=== PATIENT | female | born 1955 | race Caucasian/White ===

== ENCOUNTER 2016-08-16 17:57 | Inpatient (IN) ==
[2016-08-16] MEDS ORDERED: 0.9 % Sodium Chloride 1,000 ML IVC ONE ×2 (18:14→21:02)
--- NOTE | 2016-08-16 18:22 | Emergency Department Note ---
Disposition Clinical Impression: Severe sepsis, Bacteremia, ESRD (end stage renal disease) on dialysis, Pleural effusion, left Disposition: Admitted As Inpatient Condition: Fair Time of Disposition: 21:29 General Adult HPI - General Chief complaint: ED Recheck/Abnormal Lab/Rx Stated complaint: "Abnormal labs/n/v" Time Seen by Provider: 08/16/16 18:13 Source: EMS Limitations: language barrier, physical limitation Nursing Notes Reviewed: Yes Vital Signs Reviewed: Yes - History of Present Illness HPI Narrative: Patient is a 61-year-old female presenting from [facility] via EMS with chief concern for abnormal lab level of calcium at 13.6, positive blood cultures from August 13 for Proteus mirabilis. Apparently patient has had a two-week history of nausea with vomiting. She had a recent ultrasound for gallbladder which showed cholelithiasis but no evidence of acute cholecystitis. Also a abdominal KUB with non-specific findings. Lab work from several days ago shows a leukocytosis. Patient does have renal failure and is on dialysis. Apparently due to recent behavioral issues and altered mentation, she was not able to tolerate her dialysis today. Her blood pressures appeared to be trending on the lower side in the low 100s over 60s. Upon presentation to our emergency department she is 70s over 50s. Patient has been receiving vancomycin 1 g via her central line after dialysis as well as Invanz 500 mg IV daily. Patient is able to nod her head yes and no and mouth words to me. She is complaining of some right upper quadrant abdominal pain as well as pain in her buttock region. Onset (ago): day(s) Location: abdomen, buttocks Pain Severity: severe Pain Scale: 9 Consistency: constant Improves with: nothing Worsens with: nothing Associated symptoms: Reports: confusion - Related Data Home Medications Medication Instructions Recorded Confirmed Alprazolam [Xanax 0.25 MG Tablet] 0.25 mg PO Q6H PRN 08/16/16 08/16/16 Atorvastatin Calcium [Lipitor] 20 mg PO HS 08/16/16 08/16/16 Calcitonin-Williamson, Synthetic 400 unit SQ Q12H 08/16/16 08/16/16 [Miacalcin] Cyanocobalamin (Vitamin B-12) 100 mcg PO DAILY 08/16/16 08/16/16 [Vitamin B-12] Ertapenem Sodium [Invanz] 500 mg IV DAILY 08/16/16 08/16/16 Famotidine [Heartburn Prevention] 20 mg PO Q12H 08/16/16 08/16/16 Folic Acid 1 mg PO DAILY 08/16/16 08/16/16 Ipratropium/Albuterol Neb [Duoneb] 3 ml IH Q4H PRN 08/16/16 08/16/16 Ipratropium/Albuterol Neb [Duoneb] 3 ml IH Q6H 08/16/16 08/16/16 Isosorbide DInitrate [Isosorbide 5 mg PO Q12H 08/16/16 08/16/16 Dinitrate] Levothyroxine [Synthroid] 150 mcg PO QAM 08/16/16 08/16/16 Magnesium Oxide [Mag-Ox] 400 mg PO Q12H 08/16/16 08/16/16 Metoprolol [Lopressor] 25 mg PO DAILY 08/16/16 08/16/16 Midodrine [ProAmatine] 15 mg PO DAILY 08/16/16 08/16/16 Multivitamin [Multi-Day Vitamins] 1 each PO DAILY 08/16/16 08/16/16 Ondansetron HCl [Zofran] 4 mg PO Q4H PRN 08/16/16 08/16/16 Oxycodone HCl 10 mg PO Q3H PRN 08/16/16 08/16/16 Sertraline [Zoloft] 75 mg PO DAILY 08/16/16 08/16/16 Terbinafine HCl [Lamisil] 1 appl TP BID 08/16/16 08/16/16 Zolpidem [Ambien] 5 mg PO HS 08/16/16 08/16/16 Allergies Allergy/AdvReac Type Severity Reaction Status Date / Time codeine Allergy Hives Verified 08/16/16 19:07 Hydromorphone Allergy Hives Verified 08/16/16 19:09 Iodinated Contrast Media - Allergy Hives Verified 08/16/16 19:10 Oral and Penicillins Allergy Hives Verified 08/16/16 19:09 povidone-iodine Allergy Hives Verified 08/16/16 19:10 All systems ED: reviewed and negative except as stated. Past Medical History - Past Medical History Attestation: Yes The following information was validated with the patient. Source: patient Medical history: Reports: atrial fibrillation, COPD, coronary artery disease, diabetes, dialysis, GERD, hyperlipidemia, hypertension, peripheral artery disease, renal disease, thyroid disease, valvular heart disease Psychiatric history: Reports: depression - Social History Smoking Status: Never smoker Smokeless Tobacco Status: No Alcohol use: Reports: none Drug use: Reports: none Physical Exam - General Limitations: language barrier, physical limitation General appearance: alert - Head Head exam: atraumatic, normocephalic, normal inspection - Eye Eye exam: Present: normal appearance, PERRL, EOMI - ENT ENT exam: normal exam, normal oropharynx, mucous membranes moist - Neck Neck exam: Present: normal inspection, full ROM, trachea midline - Chest Chest inspection: Present: normal inspection, symmetric chest wall rise - Respiratory Respiratory exam: Present: other (Harsh breath sounds bilaterally) - Cardiovascular Cardiovascular exam: Present: normal rhythm, tachycardia - Abdominal Exam Abdominal exam: Present: soft, tenderness, normal bowel sounds Abdominal tenderness: Present: RUQ, epigastrium, moderate - Extremities Exam Extremities exam: Present: normal inspection, full ROM. Absent: tenderness, pedal edema - Back Exam Back exam: Present: tenderness, other (Stage I sacral decubitus ulcer starting to form. No ulceration at this time, just erythema) - Neurological Exam Neurological exam: Present: alert - Psychiatric Psychiatric exam: Present: normal affect, normal mood - Skin Skin exam: Present: warm, dry, intact, normal color Course Course Narrative: Patient seen and examined. Brought in for hypercalcemia and positive blood cultures. She is hypotensive here. We will start with 1 L bolus of IV fluids and reassess. We will get critical care workup labs, repeat cultures, EKG, chest x-ray. We will CT abdomen and pelvis. Her stool in the colostomy bag appears clean. We will get a stool sample and send it for GI panel and C. difficile. - Reevaluation(s) Reevaluation #1: Second liter fluid bolus was ordered. Patient has remained somewhat hypotensive in the 80s over 50s. Her central line is working. Vancomycin and meropenem ordered. Her chest x-ray showed a left-sided pleural effusion. She could have overlying infiltrate as well. Her other labs appear at her baseline. The previous hypercalcemia noted this morning at 13.6 seems to have improved down to 10. We will admit for severe sepsis, bacteremia, left pleural effusion. I spoke with hospitalist Dr. Wilson who has accepted patient for admission. Time: 21:26 Vital Signs Temperature 99.7 F H 08/16/16 18:00 Pulse Rate 114 08/16/16 18:00 Respiratory Rate 22 08/16/16 18:00 Blood Pressure 79/53 08/16/16 18:00 O2 Sat by Pulse Oximetry 94 L 08/16/16 18:00 Temperature 97.6 F 08/19/16 14:24 Pulse Rate 79 08/19/16 15:00 Respiratory Rate 18 08/19/16 15:00 Blood Pressure 90/60 08/19/16 15:00 O2 Sat by Pulse Oximetry 97 08/19/16 15:00 Oxygen Delivery Oxygen Delivery Ventilator Medical Decision Making - Medical Records Medical records reviewed: Yes I reviewed the patient's medical records. - Lab Data Lab results reviewed: Yes I reviewed the patient's lab results. Result diagrams: 08/19/16 10:03 08/19/16 10:03 Lab Results 08/16/16 08/16/16 08/16/16 Range/Units 18:30 19:27 19:27 WBC 8.7 (4.3-11.1) K/mcL RBC 3.32 L (3.82-4.97) M/mcL Hgb 9.3 L D (11.5-15.4) g/dL Hct 31.8 L (35.3-44.9) % MCV 95.8 (83.0-100.0) fL MCH 28.0 (28.0-33.3) pg MCHC 29.2 L (31.6-35.5) g/dL RDW 16.6 H (11.5-14.5) % Plt Count 187 (140-400) K/mcL MPV 10.7 (9.4-12.4) fL Immature Gran % 0.3 (0-4) % Seg Neutrophils % 79.6 % Lymphocytes % 8.9 % Monocytes % 10.9 % Eosinophils % 0.1 % Basophils % 0.2 % Neutrophils # 6.9 (1.6-8.9) K/mcL Lymphocytes # 0.8 (0.6-4.6) K/mcL Monocytes # 1.0 (0.0-1.3) K/mcL Eosinophils # 0.0 (0.0-0.6) K/mcL Basophils # 0.0 (0.0-0.2) K/mcL PT 21.5 H (9.4-12.1) Seconds INR 2.0 APTT 33.7 (26.0-36.0) Seconds Sodium (136-145) mEq/L Potassium (3.5-4.5) mEq/L Chloride (98-109) mEq/L Carbon Dioxide (19-29) mEq/L BUN (7-20) mg/dL Creatinine (0.57-1.11) mg/dL Est GFR ( Amer) (> 60) Est GFR (Non-Af Amer) (> 60) BUN/Creatinine Ratio (6-26) Glucose (70-99) mg/dL POC Glucose (58-89) Calculated Osmolality (280-300) Lactic Acid (0.5-2.2) mmol/L Calcium (8.6-10.8) mg/dL Phosphorus (2.3-4.7) mg/dL Magnesium (1.6-2.6) mg/dL Total Bilirubin (0.2-1.2) mg/dL Direct Bilirubin (0.0-0.5) mg/dL Indirect Bilirubin (0.0-1.2) mg/dL AST (5-34) Units/L ALT (0-55) Units/L Alkaline Phosphatase (38-126) Units/L Troponin I (0-0.03) ng/mL B-Natriuretic Peptide (0-100) pg/mL Serum Total Protein (6.0-8.3) g/dL Albumin (3.5-5.0) g/dL Globulin (2.4-3.5) g/dL Albumin/Globulin Ratio (1.1-2.2) Lipase (8-78) Units/L Stl C. cayetanensis PCR Not detected (Not detect) Stool Rotavirus A PCR Not detected (Not detect) Stl Adenov F 40/41 PCR Not detected (Not detect) Stool Astrovirus (PCR) Not detected (Not detect) Stool Campylobacter PCR Not detected (Not detect) Stl C. diff Tox A/B PCR Not detected (Not detect) Stool Cryptosporidium PCR Not detected (Not detect) Stl Sh Tox Pr E STEC PCR Not detected (Not detect) Stool E coli O157 PCR Not detected (Not detect) Stl Enterotoxigenic E PCR Not detected (Not detect) Stool EPEC (PCR) Not detected (Not detect) Stool EAEC (PCR) Not detected (Not detect) Stl E. histolytica PCR Not detected (Not detect) Stool Giardia Lamblia PCR Not detected (Not detect) Stool Salmonella PCR Not detected (Not detect) Stool Sapovirus (PCR) Not detected (Not detect) Stl P. shigelloides PCR Not detected (Not detect) Stl Shigella/EIEC PCR Not detected (Not detect) St Y.enterocolitica PCR Not detected (Not detect) Stool Vibrio (PCR) Not detected (Not detect) Stl Vibrio cholerae PCR Not detected (Not detect) Stl Norovirus GI/GII PCR Not detected (Not detect) Stl GI Panel (PCR) Com See below Hep Bs Antigen (Nonreactive) Hep Bs Antibody mIU/mL 08/16/16 08/16/16 08/16/16 Range/Units 19:27 19:27 19:27 WBC (4.3-11.1) K/mcL RBC (3.82-4.97) M/mcL Hgb (11.5-15.4) g/dL Hct (35.3-44.9) % MCV (83.0-100.0) fL MCH (28.0-33.3) pg MCHC (31.6-35.5) g/dL RDW (11.5-14.5) % Plt Count (140-400) K/mcL MPV (9.4-12.4) fL Immature Gran % (0-4) % Seg Neutrophils % % Lymphocytes % % Monocytes % % Eosinophils % % Basophils % % Neutrophils # (1.6-8.9) K/mcL Lymphocytes # (0.6-4.6) K/mcL Monocytes # (0.0-1.3) K/mcL Eosinophils # (0.0-0.6) K/mcL Basophils # (0.0-0.2) K/mcL PT (9.4-12.1) Seconds INR APTT (26.0-36.0) Seconds Sodium 136 (136-145) mEq/L Potassium 3.8 (3.5-4.5) mEq/L Chloride 103 (98-109) mEq/L Carbon Dioxide 25 (19-29) mEq/L BUN 19 (7-20) mg/dL Creatinine 3.22 H (0.57-1.11) mg/dL Est GFR ( Amer) 18 L (> 60) Est GFR (Non-Af Amer) 15 L (> 60) BUN/Creatinine Ratio 6 (6-26) Glucose 92 (70-99) mg/dL POC Glucose (58-89) Calculated Osmolality 284 (280-300) Lactic Acid 1.1 (0.5-2.2) mmol/L Calcium 10.1 D (8.6-10.8) mg/dL Phosphorus 2.6 (2.3-4.7) mg/dL Magnesium 1.7 (1.6-2.6) mg/dL Total Bilirubin 1.9 H (0.2-1.2) mg/dL Direct Bilirubin 1.2 H (0.0-0.5) mg/dL Indirect Bilirubin 0.7 (0.0-1.2) mg/dL AST 21 (5-34) Units/L ALT 16 (0-55) Units/L Alkaline Phosphatase 185 H (38-126) Units/L Troponin I 0.04 H* (0-0.03) ng/mL B-Natriuretic Peptide (0-100) pg/mL Serum Total Protein 6.7 (6.0-8.3) g/dL Albumin 2.2 L (3.5-5.0) g/dL Globulin 4.5 H (2.4-3.5) g/dL Albumin/Globulin Ratio 0.5 L (1.1-2.2) Lipase 67 (8-78) Units/L Stl C. cayetanensis PCR (Not detect) Stool Rotavirus A PCR (Not detect) Stl Adenov F 40/41 PCR (Not detect) Stool Astrovirus (PCR) (Not detect) Stool Campylobacter PCR (Not detect) Stl C. diff Tox A/B PCR (Not detect) Stool Cryptosporidium PCR (Not detect) Stl Sh Tox Pr E STEC PCR (Not detect) Stool E coli O157 PCR (Not detect) Stl Enterotoxigenic E PCR (Not detect) Stool EPEC (PCR) (Not detect) Stool EAEC (PCR) (Not detect) Stl E. histolytica PCR (Not detect) Stool Giardia Lamblia PCR (Not detect) Stool Salmonella PCR (Not detect) Stool Sapovirus (PCR) (Not detect) Stl P. shigelloides PCR (Not detect) Stl Shigella/EIEC PCR (Not detect) St Y.enterocolitica PCR (Not detect) Stool Vibrio (PCR) (Not detect) Stl Vibrio cholerae PCR (Not detect) Stl Norovirus GI/GII PCR (Not detect) Stl GI Panel (PCR) Com Hep Bs Antigen (Nonreactive) Hep Bs Antibody mIU/mL 08/16/16 08/16/16 08/17/16 Range/Units 19:27 23:20 00:11 WBC 7.9 (4.3-11.1) K/mcL RBC 3.03 L (3.82-4.97) M/mcL Hgb 8.5 L (11.5-15.4) g/dL Hct 29.2 L (35.3-44.9) % MCV 96.4 (83.0-100.0) fL MCH 28.1 (28.0-33.3) pg MCHC 29.1 L (31.6-35.5) g/dL RDW 16.6 H (11.5-14.5) % Plt Count 180 (140-400) K/mcL MPV 10.9 (9.4-12.4) fL Immature Gran % 0.4 (0-4) % Seg Neutrophils % 77.5 % Lymphocytes % 10.8 % Monocytes % 11.0 % Eosinophils % 0.3 % Basophils % 0.0 % Neutrophils # 6.1 (1.6-8.9) K/mcL Lymphocytes # 0.9 (0.6-4.6) K/mcL Monocytes # 0.9 (0.0-1.3) K/mcL Eosinophils # 0.0 (0.0-0.6) K/mcL Basophils # 0.0 (0.0-0.2) K/mcL PT (9.4-12.1) Seconds INR APTT (26.0-36.0) Seconds Sodium (136-145) mEq/L Potassium (3.5-4.5) mEq/L Chloride (98-109) mEq/L Carbon Dioxide (19-29) mEq/L BUN (7-20) mg/dL Creatinine (0.57-1.11) mg/dL Est GFR ( Amer) (> 60) Est GFR (Non-Af Amer) (> 60) BUN/Creatinine Ratio (6-26) Glucose (70-99) mg/dL POC Glucose 98 H (58-89) Calculated Osmolality (280-300) Lactic Acid (0.5-2.2) mmol/L Calcium (8.6-10.8) mg/dL Phosphorus (2.3-4.7) mg/dL Magnesium (1.6-2.6) mg/dL Total Bilirubin (0.2-1.2) mg/dL Direct Bilirubin (0.0-0.5) mg/dL Indirect Bilirubin (0.0-1.2) mg/dL AST (5-34) Units/L ALT (0-55) Units/L Alkaline Phosphatase (38-126) Units/L Troponin I (0-0.03) ng/mL B-Natriuretic Peptide 630 H (0-100) pg/mL Serum Total Protein (6.0-8.3) g/dL Albumin (3.5-5.0) g/dL Globulin (2.4-3.5) g/dL Albumin/Globulin Ratio (1.1-2.2) Lipase (8-78) Units/L Stl C. cayetanensis PCR (Not detect) Stool Rotavirus A PCR (Not detect) Stl Adenov F 40/41 PCR (Not detect) Stool Astrovirus (PCR) (Not detect) Stool Campylobacter PCR (Not detect) Stl C. diff Tox A/B PCR (Not detect) Stool Cryptosporidium PCR (Not detect) Stl Sh Tox Pr E STEC PCR (Not detect) Stool E coli O157 PCR (Not detect) Stl Enterotoxigenic E PCR (Not detect) Stool EPEC (PCR) (Not detect) Stool EAEC (PCR) (Not detect) Stl E. histolytica PCR (Not detect) Stool Giardia Lamblia PCR (Not detect) Stool Salmonella PCR (Not detect) Stool Sapovirus (PCR) (Not detect) Stl P. shigelloides PCR (Not detect) Stl Shigella/EIEC PCR (Not detect) St Y.enterocolitica PCR (Not detect) Stool Vibrio (PCR) (Not detect) Stl Vibrio cholerae PCR (Not detect) Stl Norovirus GI/GII PCR (Not detect) Stl GI Panel (PCR) Com Hep Bs Antigen (Nonreactive) Hep Bs Antibody mIU/mL 08/17/16 08/17/16 08/17/16 Range/Units 00:11 00:11 00:11 WBC (4.3-11.1) K/mcL RBC (3.82-4.97) M/mcL Hgb (11.5-15.4) g/dL Hct (35.3-44.9) % MCV (83.0-100.0) fL MCH (28.0-33.3) pg MCHC (31.6-35.5) g/dL RDW (11.5-14.5) % Plt Count (140-400) K/mcL MPV (9.4-12.4) fL Immature Gran % (0-4) % Seg Neutrophils % % Lymphocytes % % Monocytes % % Eosinophils % % Basophils % % Neutrophils # (1.6-8.9) K/mcL Lymphocytes # (0.6-4.6) K/mcL Monocytes # (0.0-1.3) K/mcL Eosinophils # (0.0-0.6) K/mcL Basophils # (0.0-0.2) K/mcL PT 22.2 H (9.4-12.1) Seconds INR 2.0 APTT 35.6 (26.0-36.0) Seconds Sodium (136-145) mEq/L Potassium (3.5-4.5) mEq/L Chloride (98-109) mEq/L Carbon Dioxide (19-29) mEq/L BUN (7-20) mg/dL Creatinine (0.57-1.11) mg/dL Est GFR ( Amer) (> 60) Est GFR (Non-Af Amer) (> 60) BUN/Creatinine Ratio (6-26) Glucose (70-99) mg/dL POC Glucose (58-89) Calculated Osmolality (280-300) Lactic Acid (0.5-2.2) mmol/L Calcium (8.6-10.8) mg/dL Phosphorus (2.3-4.7) mg/dL Magnesium (1.6-2.6) mg/dL Total Bilirubin 1.9 H (0.2-1.2) mg/dL Direct Bilirubin 1.2 H (0.0-0.5) mg/dL Indirect Bilirubin 0.7 (0.0-1.2) mg/dL AST 22 (5-34) Units/L ALT 15 (0-55) Units/L Alkaline Phosphatase 176 H (38-126) Units/L Troponin I (0-0.03) ng/mL B-Natriuretic Peptide (0-100) pg/mL Serum Total Protein 6.3 (6.0-8.3) g/dL Albumin 2.1 L (3.5-5.0) g/dL Globulin 4.2 H (2.4-3.5) g/dL Albumin/Globulin Ratio 0.5 L (1.1-2.2) Lipase (8-78) Units/L Stl C. cayetanensis PCR (Not detect) Stool Rotavirus A PCR (Not detect) Stl Adenov F 40/41 PCR (Not detect) Stool Astrovirus (PCR) (Not detect) Stool Campylobacter PCR (Not detect) Stl C. diff Tox A/B PCR (Not detect) Stool Cryptosporidium PCR (Not detect) Stl Sh Tox Pr E STEC PCR (Not detect) Stool E coli O157 PCR (Not detect) Stl Enterotoxigenic E PCR (Not detect) Stool EPEC (PCR) (Not detect) Stool EAEC (PCR) (Not detect) Stl E. histolytica PCR (Not detect) Stool Giardia Lamblia PCR (Not detect) Stool Salmonella PCR (Not detect) Stool Sapovirus (PCR) (Not detect) Stl P. shigelloides PCR (Not detect) Stl Shigella/EIEC PCR (Not detect) St Y.enterocolitica PCR (Not detect) Stool Vibrio (PCR) (Not detect) Stl Vibrio cholerae PCR (Not detect) Stl Norovirus GI/GII PCR (Not detect) Stl GI Panel (PCR) Com Hep Bs Antigen Nonreactive (Nonreactive) Hep Bs Antibody 7.95 mIU/mL - Radiology Data Radiology results reviewed: Yes I reviewed the patient's radiology results. Chest X-Ray 08/16/16 18:16 IMPRESSION: 1. Support devices as above. 2. Moderate left pleural effusion with left basilar atelectasis. 3. Mild prominence of the pulmonary vasculature. D/ / Brendan Ward MD / Brendan Ward MD Interpreting Provider: Brendan Ward MD - EKG Data EKG #1 EKG attestation: Yes I reviewed and interpreted this EKG. EKG results narrative: EKG done at 1825 shows sinus tachycardia with a rate of [address] elevation or depression. There is inverted T waves in leads 1 and aVL. Left axis deviation. Attestation Statement - Attestation Attestation: I personally interviewed and examined this patient and my medical decision- making was reviewed with the ED Resident Physician, Dr. Abrams. I agree with the documented findings, disposition and treatment plan as described in the documentation. Patient is 61-year-old white female sent to us from an extended care facility who has multiple medical problems, per halfway sheets had just been notified of positive blood cultures. Patient has a central line in place and has been receiving Vanco and Invanz through the IV according to her records. Apparently patient had gradually declining mental status over the last 48 hours , there were notes that on dialysis today they had trouble hooking her up to dialysis due to her being combative. Patient arrives today tachycardic, hypotensive with a systolic of 75. Patient awake and responsive to questions with either nodding or shaking her head but is nonverbal. Patient is trached and on event. Patient has a hemodialysis catheter noted to the right chest wall. Patient did acknowledge that she no longer makes urine. It has been reported that she has been experiencing nausea and vomiting intermittently for the last few weeks. He did have right upper quadrant ultrasound which was unremarkable. We have very limited information as there is no family at bedside , and there are no prior records in our system of the patient's history in more detail. We are limited at this time to what the halfway as sent to us via paperwork. Patient's exam per Dr. Abrams's notes, in addition pt with established trach site with purulent drainage coming from around the trach tube, will send cxs. Pt also with TLC at R SC, site without surrounding erythema/drainage, also R chest wall with dialysis cath, site unremarkable. Pt also with R abd wall colostomy bag with green appearing stool, will send stool cxs. Well healed midline abd scar without erythema. On arrival patient septic, hypoxic on the vent at 92-93%. Patient with diminished breath sounds in the left lung base on exam. Abd soft and nondistended soft nontender to palpation with positive bowel sounds. Colostomy bag noted to the right lower abdomen with greenish appearing stool in the colostomy bag. Verbal chest shows a moderate sized pleural effusion in the left lung base, unclear if there is no underlying infiltrate there. Patient received IV fluid bolus on arrival currently is undergoing a second IV fluid bolus at this time and will watch pressures closely did have some improvement in her blood pressure with the first liter. Lactate on labs is 1, white count within normal limits. Patient is end-stage renal disease on hemodialysis. Potassium is within normal limits. Blood cultures were obtained as well as cultures of purulent appearing drainage coming out around the trach site was sent. Did order a urine culture but patient states she does not make any urine. We did suction the trach as well and this was sent for culture. She was started on broad-spectrum antibiotics IV and discussed the case with the hospitalist who accepted the patient for admission to the ICU. Following second fluid bolus patient remains hypotensive we will initiate pressors. Patient remains in critical condition at this time. The high probability of a clinically significant, sudden or life threatening deterioration of the [respiratory] system(s) required my full and direct attention, intervention and personal management. The aggregate critical care time was [30] minutes. This time is in addition to time spent performing reported procedures but includes the following: [X] Data Review and interpretation [X] Patient assessment and monitoring of vital signs [X] Documentation [X] Medication orders and management
[2016-08-16 19:36] LABS: Basophils % 0.2 %; Eosinophils % 0.1 %; Hematocrit 31.8 % (35.3-44.9); Hemoglobin 9.3 g/dL (11.5-15.4); Immature Granulocytes % 0.3 % (0-4); Lymphocytes # 0.8 K/mcL (0.6-4.6); Lymphocytes % 8.9 %; Mean Corpuscular HGB Conc 29.2 g/dL (31.6-35.5); Mean Corpuscular Volume 95.8 fL (83.0-100.0); Mean Platelet Volume 10.7 fL (9.4-12.4); Monocytes % 10.9 %; Neutrophils # 6.9 K/mcL (1.6-8.9); Platelet Count 187 K/mcL (140-400); Red Blood Count 3.32 M/mcL (3.82-4.97); Red Cell Distribution Width 16.6 % (11.5-14.5); Segmented Neutrophils % 79.6 %
[2016-08-16 19:43] LABS: Prothrombin Time 21.5 Seconds (9.4-12.1)
[2016-08-16 19:46] LABS: Activated Partial Thrombo Time 33.7 Seconds (26.0-36.0)
[2016-08-16 19:53] LABS: Albumin 2.2 g/dL (3.5-5.0); Albumin/Globulin Ratio 0.5 (1.1-2.2); Bilirubin,Direct 1.2 mg/dL (0.0-0.5); Bilirubin,Indirect 0.7 mg/dL (0.0-1.2); Bilirubin,Total 1.9 mg/dL (0.2-1.2); Calcium 10.1 mg/dL (8.6-10.8); Globulin 4.5 g/dL (2.4-3.5); Magnesium 1.7 mg/dL (1.6-2.6); Phosphorous 2.6 mg/dL (2.3-4.7); Potassium 3.8 mEq/L (3.5-4.5); Total Protein 6.7 g/dL (6.0-8.3)
[2016-08-16] MEDS ORDERED: Vancomycin 1,000 MG in D5% in Water 250 ML IVPB ONE (20:00)
[2016-08-16 20:22] LABS: C.difficile Toxin A/B by PCR Not detected (Not detect); Campylobacter by PCR Not detected (Not detect); Plesiomonas shigelloides PCR Not detected (Not detect); Salmonella PCR Not detected (Not detect); Vibrio PCR Not detected (Not detect); Vibrio cholerae PCR Not detected (Not detect); Yersinia enterocolitica PCR Not detected (Not detect)
[2016-08-16 20:23] LABS: Adenovirus F 40/41 PCR Not detected (Not detect); Astrovirus PCR Not detected (Not detect); Cryptosporidium by PCR Not detected (Not detect); Cyclospora cayetanensis PCR Not detected (Not detect); E. coli O157 by PCR Not detected (Not detect); Entamoeba histolytica PCR Not detected (Not detect); Enteroaggregative E.coli(EAEC) Not detected (Not detect); Enteropathogenic E.coli(EPEC) Not detected (Not detect); Enterotoxigenic E.coli (ETEC) Not detected (Not detect); Giardia lamblia PCR Not detected (Not detect); Norovirus GI/GII PCR Not detected (Not detect); Shig/EnteroinvasiveE coli EIEC Not detected (Not detect); Shigalike tox-prod E coli STEC Not detected (Not detect)
[2016-08-16 20:24] LABS: Rotavirus A PCR Not detected (Not detect); Sapovirus PCR Not detected (Not detect)
[2016-08-16] MEDS ORDERED: *HR* Morphine 2 MG/ML SYRINGE IVP PRN (23:10)
[2016-08-16] MEDS ORDERED: Acetaminophen 325 MG TABLET PO PRN (23:10)
[2016-08-16] MEDS ORDERED: Naloxone 0.4 MG/ML INJ IVP PRN (23:10)
[2016-08-16] MEDS ORDERED: Ondansetron 4 MG/2 ML VIAL IVP PRN (23:10)
[2016-08-16] MEDS ORDERED: Acetaminophen 650 MG RECTAL SUPP RC PRN (23:10)
[2016-08-16] MEDS ORDERED: *HR* Heparin 5,000 UNIT/ML VIAL IVP PRN ×2 (23:10)
[2016-08-16] MEDS ORDERED: *HR* LORazepam 2 MG/ML VIAL IVP PRN (23:10)
[2016-08-16] MEDS ORDERED: Vancomycin (wt based) 1,000 MG VIAL IVPB SCH (23:45)
[2016-08-16] MEDS ORDERED: *HR* Morphine 2 MG/ML SYRINGE ONE (23:48)
[2016-08-16] MEDS ORDERED: *HR* LORazepam 2 MG/ML VIAL ONE (23:48)
[2016-08-16] MEDS ORDERED: Alteplase (Cathflo) 10 MG in 0.9 % Sodium Chloride 50 ML IV ONE (23:56)
[2016-08-17] MEDS ORDERED: *HR* Alteplase (Cathflo) 2 MG VIAL IVP PRN (00:21)
[2016-08-17 00:23] LABS: Eosinophils % 0.3 %; Hematocrit 29.2 % (35.3-44.9); Hemoglobin 8.5 g/dL (11.5-15.4); Immature Granulocytes % 0.4 % (0-4); Lymphocytes # 0.9 K/mcL (0.6-4.6); Lymphocytes % 10.8 %; Mean Corpuscular HGB Conc 29.1 g/dL (31.6-35.5); Mean Corpuscular Hemoglobin 28.1 pg (28.0-33.3); Mean Corpuscular Volume 96.4 fL (83.0-100.0); Mean Platelet Volume 10.9 fL (9.4-12.4); Monocytes # 0.9 K/mcL (0.0-1.3); Neutrophils # 6.1 K/mcL (1.6-8.9); Platelet Count 180 K/mcL (140-400); Red Blood Count 3.03 M/mcL (3.82-4.97); Red Cell Distribution Width 16.6 % (11.5-14.5); Segmented Neutrophils % 77.5 %
--- NOTE | 2016-08-17 00:25 | Internal Med History&Physical ---
Date of Encounter: 08/16/16 Time of Encounter: 23:00 Assessment and Plan (1) Severe sepsis Current visit: Yes Status: Acute 1. Patient with + blood cultures for Proteus and Anaerobe. 2. Repeat blood cultures drawn in ER. 3. Continue IV Vancomycin, Meropenem, and add Flagyl for anaerobic coverage. 4. ECHO in am to assess mechanical valve. I'm concerned for possible endocarditis as source for sepsis. 5. IVF, boluses, Levophed for BP support. 6. Consult technical implementation lead for ICU management. Total of 65 minutes critical care time thus far with patient. (2) Chronic respiratory failure Current visit: Yes Status: Chronic 1. Continue ventilator per home settings. 2. RT and ICU consults for ongoing ventilatory management. 3. Check ABG in am. Qualifiers: Respiratory failure complication: hypoxia Qualified Code(s): J96.11 - Chronic respiratory failure with hypoxia (3) ESRD (end stage renal disease) on dialysis Current visit: Yes Status: Acute 1. Consult nephrology for dialysis needs. (4) Acute encephalopathy Current visit: Yes Status: Acute 1. Likely due to sepsis and possibly uremia. 2. Minimize mind altering medications. 3. Monitor clinically. (5) DVT prophylaxis Current visit: Yes Status: Acute 1. On Heparin gtt for mechanical heart valve anti-coagulation. Internal Medicine - H&P: HPI Chief complaint: sepsis Admitted From: Emergency Dept Plans for Post Hospital Care: Transfer [facility] History of present illness: Ms. Lundy is a 61 year old female who presents from her local F with reported altered mental status. She reportedly missed her dialysis today due to her depressed mental status. She was later sent to the ER. In the ER, she was noted to be septic and was fluid resuscitated and admitted to the ICU. Of note, she had recent blood cultures growing out Proteus [place] from 3 days ago. I saw patient upon arrival to the ICU. Unfortunately, we could not obtain much history whatsoever from patient. She is a chronic ventilatory patient with a tracheostomy. Additionally, she does not answer many questions appropriately. She did answer a few yes and no questions. What I could gather from her was she had a mechanical valve replacement, colostomy for unknown reasons, and that she is dialysis and ventilator dependent. No further history could be obtained from patient. I reviewed the ER records and very limited correction records available to me. There are no other old records available for review from prior hospitalizations. Past Med Surg Social Fam HX - Past Medical History Source: old records reviewed, nursing notes reviewed Medical history: atrial fibrillation, COPD, coronary artery disease, diabetes, dialysis, GERD, hyperlipidemia, hypertension, peripheral artery disease, renal disease, thyroid disease, valvular heart disease (mechanical) Psychiatric history: depression - Past Surgical History Surgical History: colostomy, other (valve repelacement), tracheostomy - Social History Smoking Status: Never smoker Smokeless Tobacco Status: No Alcohol use: none Drug use: none Current living situation: [facility]CF - Family History Mother History Unknown: Yes Father History Unknown: Yes Internal Medicine - H&P: Meds Alprazolam [Xanax 0.25 MG Tablet] 0.25 mg PO Q6H PRN 08/16/16 [History] Atorvastatin Calcium [Lipitor] 20 mg PO HS 08/16/16 [History] Calcitonin-[place], Synthetic [Miacalcin] 400 unit SQ Q12H 08/16/16 [History] Cyanocobalamin (Vitamin B-12) [Vitamin B-12] 100 mcg PO DAILY 08/16/16 [History] Ertapenem Sodium [Invanz] 500 mg IV DAILY 08/16/16 [History] Famotidine [Heartburn Prevention] 20 mg PO Q12H 08/16/16 [History] Folic Acid 1 mg PO DAILY 08/16/16 [History] Ipratropium/Albuterol Neb [Duoneb] 3 ml IH Q4H PRN 08/16/16 [History] Ipratropium/Albuterol Neb [Duoneb] 3 ml IH Q6H 08/16/16 [History] Isosorbide DInitrate [Isosorbide Dinitrate] 5 mg PO Q12H 08/16/16 [History] Levothyroxine [Synthroid] 150 mcg PO QAM 08/16/16 [History] Magnesium Oxide [Mag-Ox] 400 mg PO Q12H 08/16/16 [History] Metoprolol [Lopressor] 25 mg PO DAILY 08/16/16 [History] Midodrine [ProAmatine] 15 mg PO DAILY 08/16/16 [History] Multivitamin [Multi-Day Vitamins] 1 each PO DAILY 08/16/16 [History] Ondansetron HCl [Zofran] 4 mg PO Q4H PRN 08/16/16 [History] Oxycodone HCl 10 mg PO Q3H PRN 08/16/16 [History] Sertraline [Zoloft] 75 mg PO DAILY 08/16/16 [History] Terbinafine HCl [Lamisil] 1 appl TP BID 08/16/16 [History] Zolpidem [Ambien] 5 mg PO HS 08/16/16 [History] Allergies codeine Allergy (Verified 08/16/16 19:07) Hives Hydromorphone Allergy (Verified 08/16/16 19:09) Hives Iodinated Contrast Media - Oral and Allergy (Verified 08/16/16 19:10) Hives Penicillins Allergy (Verified 08/16/16 19:09) Hives povidone-iodine Allergy (Verified 08/16/16 19:10) Hives ROS unobtainable: due to endotracheal tube (tracheostomy), due to mental status - Constitutional Vitals: Temp Pulse Resp BP Pulse Ox 99.7 F H 95 19 99/57 96 08/16/16 18:00 08/16/16 23:17 08/16/16 23:13 08/16/16 23:13 08/16/16 23:13 General appearance: Present: cachectic, A&O X 1, severe distress. Absent: answers questions appropriately Exam: patient severely dehydrated; delayed cap refill; purulent tracheal secretions - Head Head exam: Present: atraumatic, normal inspection - Expanded Head Exam Head exam expanded: Absent: abrasion, contusion, general tenderness - Eye Eye exam: Present: EOMI, normal appearance, PERRL. Absent: scleral icterus Pupils: Present: normal accommodation Additional comments: eyes sunken - ENT ENT exam: Present: mucous membranes dry, normal external ear exam Additional comments: tracheostomy with purulent secretions - Neck Neck exam general surgery: Present: full ROM, supple, trachea midline. Absent: lymphadenopathy, tenderness, nuchal rigidity - Respiratory Respiratory exam: Present: accessory muscle use, rales, respiratory distress, rhonchi, tachypnea. Absent: chest wall tenderness, wheezes - Cardiovascular Cardiovascular exam: Present: RRR, +S1, +S2, systolic murmur, tachycardia. Absent: diastolic murmur Additional comments: + faint valvular click -- appears mechanical/metal on auscultation - GI/Abdominal GI/Abdominal exam: Present: soft, tenderness. Absent: guarding, hepatomegaly, mass, rebound, splenomegaly Additional comments: colostomy in place - Extremities Exam Extremities exam: Absent: calf tenderness, joint swelling, normal capillary refill (delayed ~ 3 seconds), mottling, pedal edema, tenderness - Back Exam Back exam: Absent: CVA tenderness (L), CVA tenderness (R) Additional comments: sacral scar/old injury - Neurological Exam Neurological exam: Present: altered, no focal deficits (moves all four extremities; awake, responds to stimuli) - Psychiatric Psychiatric exam: Present: anxious - Skin Skin exam: Present: dry, warm. Absent: rash Additional comments: dialysis catheter and CVC in right upper chest Internal Med - H&P Results - Labs CBC & Chem 7: 08/17/16 00:11 08/16/16 19:27 - EKG Data -: EKG Interpreted by Myself - EKG Data Prior EKG available for review: no EKG comments: 08/17/16 01:07 Atrial Fibrillation; LVH; poor R wave progression - Diagnostic Studies Chest x-ray Status: image reviewed by me (left pleural effusion; cardiomegaly) - VTE Reasons for not Prescribing Prophylaxis: Not indicated-Anticoagulated or INR therapeutic
[2016-08-17 00:28] LABS: Prothrombin Time 22.2 Seconds (9.4-12.1)
[2016-08-17 00:31] LABS: Activated Partial Thrombo Time 35.6 Seconds (26.0-36.0)
[2016-08-17] MEDS: Heparin 25,000 UNIT/500 ML D5W 25,000 UNIT/500 ML MLS IVC SCH ×2 (00:36→20:18)
[2016-08-17 00:37] LABS: Albumin 2.1 g/dL (3.5-5.0); Albumin/Globulin Ratio 0.5 (1.1-2.2); Bilirubin,Direct 1.2 mg/dL (0.0-0.5); Bilirubin,Indirect 0.7 mg/dL (0.0-1.2); Bilirubin,Total 1.9 mg/dL (0.2-1.2); Globulin 4.2 g/dL (2.4-3.5); Total Protein 6.3 g/dL (6.0-8.3)
[2016-08-17] MEDS: MetroNIDAZOLE 500 MG/100 ML 500 MG/100 ML BAG IVPB SCH ×4 (00:53→23:43)
[2016-08-17] MEDS: 0.9 % Sodium Chloride 1,000 ML IVC SCH ×2 (00:53→09:07)
[2016-08-17] MEDS: Norepinephrine 4 MG in D5% in Water 250 ML IVC SCH ×3 (00:53→21:20)
[2016-08-17] MEDS ORDERED: Magnesium Sulfate 2 GM in D5% in Water 100 ML IVPB ONE (01:40)
[2016-08-17] MEDS: Meropenem 1,000 MG in 0.9 % Sodium Chloride Mini Bag 100 ML IVPB SCH ×2 (01:44→14:44)
[2016-08-17 02:53] LABS: Albumin 2.2 g/dL (3.5-5.0); Albumin/Globulin Ratio 0.4 (1.1-2.2); Bilirubin,Total 2.1 mg/dL (0.2-1.2); Calcium 9.6 mg/dL (8.6-10.8); Globulin 4.9 g/dL (2.4-3.5); Magnesium 1.8 mg/dL (1.6-2.6); Potassium 4.3 mEq/L (3.5-4.5); Total Protein 7.1 g/dL (6.0-8.3)
[2016-08-17 05:04] LABS: ABG Base Excess -0.5 mEq/L (-2.0 to 3.0); ABG HCO3 24.2 mEQ/L (21-27); ABG Oxygen Saturation 95 % (95-98); ABG PCO2 39 mmHg (35-45); ABG PO2 74 mmHg (85-104); ABG TCO2 25.4 mEq/L (20-26)
[2016-08-17 05:05] LABS: Blood Gas FiO2 28 %
[2016-08-17 06:24] LABS: Hematocrit 35.3 % (35.3-44.9); Hemoglobin 10.4 g/dL (11.5-15.4); Mean Corpuscular HGB Conc 29.5 g/dL (31.6-35.5); Mean Corpuscular Hemoglobin 28.7 pg (28.0-33.3); Mean Corpuscular Volume 97.2 fL (83.0-100.0); Mean Platelet Volume 10.9 fL (9.4-12.4); Platelet Count 201 K/mcL (140-400); Red Blood Count 3.63 M/mcL (3.82-4.97); Red Cell Distribution Width 16.7 % (11.5-14.5)
[2016-08-17] MEDS ORDERED: *HR* Heparin 5,000 UNIT/ML VIAL IVP PRN ×2 (07:20)
--- NOTE | 2016-08-17 08:24 | Event Note ---
Date of Encounter: 08/17/16 Time of Encounter: 08:22 Nephrology [facility] received a consult for this patient. I opened her chart and see that she dialyzes at a unit typically operated by Dr. Shrestha. I called [facility] to confirm who her fisher trawl net is, and the nurse at [place] said it's Dr. Shrestha. Please change the order for the Nephrology Consult to his group. If any questions, I would be happy to help. Thank you for thinking of the [facility] group.
--- NOTE | 2016-08-17 08:43 | Pulmonology Consult Note ---
Date of Encounter: 08/17/16 Time of Encounter: 08:37 Assessment and Plan (1) Severe sepsis Current Visit: Yes Status: Acute Sepsis with polymicrobial bacteremia. Continue empiric antibiotics. She is on low-dose norepinephrine with no clear signs of hypoperfusion. We will continue to wean norepinephrine with a goal mean arterial pressure of 65 mmHg. (2) Bacteremia Current Visit: Yes Status: Acute Blood cultures obtained prior to admission reveal Proteus mirabilis and a gram- positive cocci (the micro-lab is concerned that this is an anaerobe). Possible sources of infection include catheter related line infection (she has to tunneled catheters including a hemodialysis catheter and tunneled port) , endocarditis, or intra-abdominal infection (in light of the concern for anaerobic bacteremia). The patient is on meropenem, vancomycin, and metronidazole. I have consult infectious disease for further evaluation. A transthoracic echocardiogram is pending, but the patient may ultimately need a transesophageal echocardiogram. She has an unknown surgical history but there is a large midline abdominal scar and ostomy in place. Given the concern for anaerobic bacteremia, I will obtain CT scan of the abdomen (will discuss with nephrology the utilization of intravenous contrast in the setting of end-stage renal disease). (3) Chronic respiratory failure Current Visit: Yes Status: Chronic Reportedly, the patient has a chronic trach. Her baseline respiratory status is unclear, and we will attempt to investigate whether or not she is ventilator dependent at baseline. She does not have enteral access, and I have consulted speech therapy for swallow evaluation. I suspect she will need an NG tube for nutrition if her mental status is not improved. Qualifiers: Respiratory failure complication: hypoxia Qualified Code(s): J96.11 - Chronic respiratory failure with hypoxia (4) Encephalopathy Current Visit: Yes Status: Acute Likely secondary to acute illness. Her neurologic exam is nonfocal at this time , but given her bacteremia and concern for endocarditis we will obtain imaging of the brain. (5) ESRD (end stage renal disease) on dialysis Current Visit: Yes Status: Acute I have consult with Dr. De Luna for management. No acute indications for dialysis. I will stop the IV fluids. She is on low-dose vasopressors, and would likely tolerate conventional dialysis without the need for continuous renal replacement therapy. (6) History of heart valve replacement with mechanical valve Current Visit: Yes Status: Acute By history. I was unable to auscultate a mechanical click or murmur on exam. Transthoracic echocardiogram is pending. Continue anticoagulation with a heparin drip. History of Present Illness Consult date: 08/17/16 Requesting physician: Basil Mathis Reason for consult: other (sepsis, chronic respiratory failure) Chief complaint: sepsis History of present illness: 61-year-old chronically ill female with a history of chronic respiratory failure with trach, end-stage renal disease, mechanical heart valve, and COPD who was transferred from an extended care facility for further evaluation of encephalopathy and hypotension. Of note, the patient is encephalopathic and on the ventilator, therefore I am unable to obtain history or review of systems. No family available at bedside. Information was obtained from the medical record and in discussion with hospital staff. Reportedly, blood cultures drawn prior to admission were growing Proteus. Workup thus far has revealed hypotension. She has been given IV fluids and started on vasopressors. She has been stable overnight on low-dose norepinephrine and IV fluids. Past Med Surg Social Fam HX - Past Medical History Medical history: atrial fibrillation, COPD, coronary artery disease, diabetes, dialysis, GERD, hyperlipidemia, hypertension, peripheral artery disease, renal disease, thyroid disease, valvular heart disease (mechanical) Psychiatric history: depression - Past Surgical History Surgical History: colostomy, other (valve repelacement), tracheostomy - Social History Smoking Status: Never smoker Smokeless Tobacco Status: No Alcohol use: none Drug use: none - Family History Mother History Unknown: Yes Father History Unknown: Yes Medications and Allergies Alprazolam [Xanax 0.25 MG Tablet] 0.25 mg PO Q6H PRN 08/16/16 [History] Atorvastatin Calcium [Lipitor] 20 mg PO HS 08/16/16 [History] Calcitonin-[place], Synthetic [Miacalcin] 400 unit SQ Q12H 08/16/16 [History] Cyanocobalamin (Vitamin B-12) [Vitamin B-12] 100 mcg PO DAILY 08/16/16 [History] Ertapenem Sodium [Invanz] 500 mg IV DAILY 08/16/16 [History] Famotidine [Heartburn Prevention] 20 mg PO Q12H 08/16/16 [History] Folic Acid 1 mg PO DAILY 08/16/16 [History] Ipratropium/Albuterol Neb [Duoneb] 3 ml IH Q4H PRN 08/16/16 [History] Ipratropium/Albuterol Neb [Duoneb] 3 ml IH Q6H 08/16/16 [History] Isosorbide DInitrate [Isosorbide Dinitrate] 5 mg PO Q12H 08/16/16 [History] Levothyroxine [Synthroid] 150 mcg PO QAM 08/16/16 [History] Magnesium Oxide [Mag-Ox] 400 mg PO Q12H 08/16/16 [History] Metoprolol [Lopressor] 25 mg PO DAILY 08/16/16 [History] Midodrine [ProAmatine] 15 mg PO DAILY 08/16/16 [History] Multivitamin [Multi-Day Vitamins] 1 each PO DAILY 08/16/16 [History] Ondansetron HCl [Zofran] 4 mg PO Q4H PRN 08/16/16 [History] Oxycodone HCl 10 mg PO Q3H PRN 08/16/16 [History] Sertraline [Zoloft] 75 mg PO DAILY 08/16/16 [History] Terbinafine HCl [Lamisil] 1 appl TP BID 08/16/16 [History] Zolpidem [Ambien] 5 mg PO HS 08/16/16 [History] Allergies codeine Allergy (Verified 08/16/16 19:07) Hives Hydromorphone Allergy (Verified 08/16/16 19:09) Hives Iodinated Contrast Media - Oral and Allergy (Verified 08/16/16 19:10) Hives Penicillins Allergy (Verified 08/16/16 19:09) Hives povidone-iodine Allergy (Verified 08/16/16 19:10) Hives ROS unobtainable: other (Due to tracheostomy tube and encephalopathy) Physical Examination Vital Signs: Vital Signs, Last 4 Hours Temp Pulse Resp BP Pulse Ox 08/17/16 08:15 16 98 08/17/16 07:54 98.3 F 08/17/16 06:15 14 103/63 97 08/17/16 06:00 116 14 137/80 98 08/17/16 05:00 112 15 123/74 98 08/17/16 04:46 14 126/75 97 General: Chronically ill-appearing, minimally interactive with caregivers, no acute distress Eyes: nonicteric ENT: oropharynx moist Neck: supple, no lymphadenopathy, #[address] with benign appearing ostomy site Lungs: Coarse bilateral breath sounds Cardiovascular: Irregular, unable to auscultate mechanical click or murmur Gastrointestinal: normoactive bowel sounds, soft, non-tender, non-distended, ostomy in place with brown stool Integumentary: normal Extremities: no cyanosis, no edema Musculoskeletal: no deformities Neuro: Minimally interactive with caregivers but overall non-focal exam Psych: Exam deferred Ventilator Settings Ventilator Settings: Ventilator Settings, Last 8 Hours Ventilator Mode VC+ Ventilator Mode VC+ Ventilator Mode VC+ Ventilator Mode VC+ Ventilator Mode VC+ Ventilator Mode VC+ Ventilator Tidal Volume 500 Setting Ventilator Tidal Volume 500 Setting Ventilator Tidal Volume 500 Setting Ventilator Tidal Volume 500 Setting Ventilator Tidal Volume 500 Setting Ventilator Tidal Volume 500 Setting Ventilator Respiratory Rate 12 Setting Ventilator Respiratory Rate 12 Setting Ventilator Respiratory Rate 12 Setting Ventilator Respiratory Rate 12 Setting Ventilator Respiratory Rate 12 Setting Ventilator Respiratory Rate 12 Setting Actual Respiratory Rate 16 Actual Respiratory Rate 14 Actual Respiratory Rate 14 Actual Respiratory Rate 12 Positive End Expiratory 5 Pressure Positive End Expiratory 5 Pressure Positive End Expiratory 5 Pressure Positive End Expiratory 5 Pressure Positive End Expiratory 5 Pressure Positive End Expiratory 5 Pressure Peak Inspiratory Airway 33 Pressure Peak Inspiratory Airway 32 Pressure Peak Inspiratory Airway 34 Pressure Peak Inspiratory Airway 36 Pressure Peak Inspiratory Airway 34 Pressure Results - Laboratory Findings CBC and BMP: 08/17/16 05:56 08/17/16 02:14 ABG ABG pH 7.40 pH Units (7.32-7.45) 08/17/16 04:53 ABG pCO2 39 mmHg (35-45) 08/17/16 04:53 ABG pO2 74 mmHg (85-104) L 08/17/16 04:53 ABG O2 Saturation 95 % (95-98) 08/17/16 04:53 PT/INR, D-dimer PT 22.2 Seconds (9.4-12.1) H 08/17/16 00:11 Abnormal lab findings: Abnormal lab results RBC 3.63 M/mcL (3.82-4.97) L 08/17/16 05:56 Hgb 10.4 g/dL (11.5-15.4) L D 08/17/16 05:56 MCHC 29.5 g/dL (31.6-35.5) L 08/17/16 05:56 RDW 16.7 % (11.5-14.5) H 08/17/16 05:56 PT 22.2 Seconds (9.4-12.1) H 08/17/16 00:11 APTT 39.6 Seconds (26.0-36.0) H 08/17/16 05:56 ABG pO2 74 mmHg (85-104) L 08/17/16 04:53 BUN 21 mg/dL (7-20) H 08/17/16 02:14 Creatinine 3.28 mg/dL (0.57-1.11) H 08/17/16 02:14 Est GFR ( Amer) 17 (> 60) L 08/17/16 02:14 Est GFR (Non-Af Amer) 14 (> 60) L 08/17/16 02:14 Glucose 108 mg/dL (70-99) H 08/17/16 02:14 POC Glucose 98 (58-89) H 08/16/16 23:20 Total Bilirubin 2.1 mg/dL (0.2-1.2) H 08/17/16 02:14 Direct Bilirubin 1.2 mg/dL (0.0-0.5) H 08/17/16 00:11 Alkaline Phosphatase 217 Units/L (38-126) H 08/17/16 02:14 Troponin I 0.04 ng/mL (0-0.03) H* 08/17/16 02:14 B-Natriuretic Peptide 630 pg/mL (0-100) H 08/16/16 19:27 Albumin 2.2 g/dL (3.5-5.0) L 08/17/16 02:14 Globulin 4.9 g/dL (2.4-3.5) H 08/17/16 02:14 Albumin/Globulin Ratio 0.4 (1.1-2.2) L 08/17/16 02:14 - Clinical Findings Intake & Output: Intake & Output 08/16/16 08/17/16 08/17/16 23:59 07:59 15:59 Intake Total 669 / 669 Output Total 100 / 100 Balance 569 / 569 Consult Discharge Plan - Plan Referrals: NO,PCP [Primary Care Provider] -
[2016-08-17 10:19] LABS: Hepatitis B Surface Antigen Nonreactive (Nonreactive)
[2016-08-17] MEDS: *HR* FentaNYL (PF) 100 MCG/2 ML VIAL IVP PRN ×4 (10:24→23:10)
[2016-08-17 13:15] LABS: Activated Partial Thrombo Time 134.2 Seconds (26.0-36.0)
[2016-08-17 13:30] LABS: Heparin anti-factor XA UFH 0.37 IU/mL (0.30-0.70)
[2016-08-17] MEDS ORDERED: Perflutren Lipid Microsphere 1.3 ML in 0.9 % Sodium Chloride 8.7 ML IVP ONE (17:43)
[2016-08-17] MEDS ORDERED: Perflutren Lipid Microsphere 2 ML VIAL ONE (17:45)
[2016-08-18] MEDS: Ipratropium/Albuterol Neb 3 ML IH PRN ×2 (00:21→15:32)
[2016-08-18] MEDS: Meropenem 1,000 MG in 0.9 % Sodium Chloride Mini Bag 100 ML IVPB SCH ×2 (03:09→14:11)
[2016-08-18] MEDS: *HR* FentaNYL (PF) 100 MCG/2 ML VIAL IVP PRN (05:56)
[2016-08-18] MEDS: MetroNIDAZOLE 500 MG/100 ML 500 MG/100 ML BAG IVPB SCH ×3 (08:02→23:56)
--- NOTE | 2016-08-18 08:03 | Nephrology Consult Note ---
Date of Encounter: 08/18/16 Time of Encounter: 08:01 Assessment and Plan (1) ESRD (end stage renal disease) on dialysis Current Visit: Yes Status: Acute Patient has end-stage renal disease. She is dialysis dependent. There is currently no indication for urgent dialysis. Her electrolytes and acid base status are satisfactory. She does not appear to be volume overloaded. She is on empiric Biotics for her bacteremia. If she exhibits MRSA on final blood cultures we will need to remove the tunneled dialysis catheter. We may need to do so anyway depending on future developments. The ICU team is going to get a transesophageal echocardiogram and also CT scan of chest and abdomen and pelvis. (2) Bacteremia Current Visit: Yes Status: Acute (3) Chronic respiratory failure Current Visit: Yes Status: Chronic Qualifiers: Respiratory failure complication: hypoxia Qualified Code(s): J96.11 - Chronic respiratory failure with hypoxia (4) History of heart valve replacement with mechanical valve Current Visit: Yes Status: Acute History of Present Illness - History of Present Illness This is a 61-year-old female who is relatively new to the nephrology service. Patient received dialysis and the [facility] every Friday. She resides at [facility]. Patient has chronic respiratory failure and a tracheostomy in place. Patient apparently had [facility] done at the [facility] back on August 13. Blood cultures are growing Proteus and a gram-positive organism. Cultures on August 16 been negative. She has a tunnel dialysis catheter in place as well as a second tunneled catheter for IV access. Patient was also having issues with drainage around her trach. She has been febrile. She has been hypotensive. She subsequently has been sent from the [facility] to the emergency room and admitted to the hospital. She is currently in the intensive care unit. She is on some Levaquin for for blood pressure support. Current blood pressure is 84/50. She is on empiric antibiotics. Much of her history is currently unknown. She does have evidence of abdominal surgery as well as a colostomy in place. There is also a report that she is status post heart valve replacement. Details are uncertain. Past Med Surg Social Fam HX - Past Medical History Medical history: atrial fibrillation, COPD, coronary artery disease, diabetes, dialysis, GERD, hyperlipidemia, hypertension, peripheral artery disease, renal disease, thyroid disease, valvular heart disease (mechanical) Psychiatric history: depression - Past Surgical History Surgical History: colostomy, other (valve repelacement), tracheostomy - Social History Smoking Status: Never smoker Smokeless Tobacco Status: No Alcohol use: none Drug use: none - Family History Mother History Unknown: Yes Father History Unknown: Yes Medications and Allergies Alprazolam [Xanax 0.25 MG Tablet] 0.25 mg PO Q6H PRN 08/16/16 [History] Atorvastatin Calcium [Lipitor] 20 mg PO HS 08/16/16 [History] Calcitonin-[place], Synthetic [Miacalcin] 400 unit SQ Q12H 08/16/16 [History] Cyanocobalamin (Vitamin B-12) [Vitamin B-12] 100 mcg PO DAILY 08/16/16 [History] Ertapenem Sodium [Invanz] 500 mg IV DAILY 08/16/16 [History] Famotidine [Heartburn Prevention] 20 mg PO Q12H 08/16/16 [History] Folic Acid 1 mg PO DAILY 08/16/16 [History] Ipratropium/Albuterol Neb [Duoneb] 3 ml IH Q4H PRN 08/16/16 [History] Ipratropium/Albuterol Neb [Duoneb] 3 ml IH Q6H 08/16/16 [History] Isosorbide DInitrate [Isosorbide Dinitrate] 5 mg PO Q12H 08/16/16 [History] Levothyroxine [Synthroid] 150 mcg PO QAM 08/16/16 [History] Magnesium Oxide [Mag-Ox] 400 mg PO Q12H 08/16/16 [History] Metoprolol [Lopressor] 25 mg PO DAILY 08/16/16 [History] Midodrine [ProAmatine] 15 mg PO DAILY 08/16/16 [History] Multivitamin [Multi-Day Vitamins] 1 each PO DAILY 08/16/16 [History] Ondansetron HCl [Zofran] 4 mg PO Q4H PRN 08/16/16 [History] Oxycodone HCl 10 mg PO Q3H PRN 08/16/16 [History] Sertraline [Zoloft] 75 mg PO DAILY 08/16/16 [History] Terbinafine HCl [Lamisil] 1 appl TP BID 08/16/16 [History] Zolpidem [Ambien] 5 mg PO HS 08/16/16 [History] Allergies codeine Allergy (Verified 08/16/16 19:07) Hives Hydromorphone Allergy (Verified 08/16/16 19:09) Hives Iodinated Contrast Media - Oral and Allergy (Verified 08/16/16 19:10) Hives Penicillins Allergy (Verified 08/16/16 19:09) Hives povidone-iodine Allergy (Verified 08/16/16 19:10) Hives Review of Systems ROS unobtainable: due to endotracheal tube Exam - Vital Signs Vital signs: Initial Vital Signs Temp Pulse Resp BP Pulse Ox 99.7 F H 114 22 79/53 94 L 08/16/16 18:00 08/16/16 18:00 08/16/16 18:00 08/16/16 18:00 08/16/16 18:00 Vital Signs - Last 8 Hours Temp Pulse Resp BP Pulse Ox 08/18/16 07:38 17 97 08/18/16 06:07 16 84/50 99 08/18/16 06:00 118 15 84/50 99 08/18/16 05:00 118 15 99/59 98 08/18/16 04:16 19 80/46 98 08/18/16 04:00 98.5 F 118 25 102/87 96 08/18/16 03:00 121 16 100/56 99 08/18/16 02:14 14 93/63 100 08/18/16 02:00 120 16 93/63 100 08/18/16 01:00 116 15 91/46 99 08/18/16 00:24 13 91/63 99 Intake and Output 08/17/16 08/18/16 08/18/16 23:59 07:59 15:59 Intake Total 259 / 259 320 / 320 Output Total 0 / 0 100 / 100 Balance 259 / 259 220 / 220 Intake: IV Fluids 259 / 259 200 / 200 Heparin 25,000 UNIT/500 129 / 129 ML D5W 25,000 unit In 500 ml @ 14 UNIT/KG/HR 24.92 mls/hr IVC .Q20H4M [facility] Rx#:[id number] Levophed 4 MG In Dextrose 30 / 30 5% 250 ML @ 5 MCG/MIN 19 .05 mls/hr IVC CONT [facility] Rx#:[id number] Merrem 1,000 MG In 0.9 % 100 / 100 Sodium Chloride (Mini-Bag +) 100 ML @ 200 mls/hr IVPB Q12H [facility] Rx#: [id number] Flagyl 500 MG/100 ML 500 100 / 100 100 / 100 mg In 100 ml @ 100 mls/hr IVPB Q8HR [facility] Rx#: [id number] Oral 120 / 120 Output: Stool 0 / 0 100 / 100 Other: Stool Consistency liquid Stool Characteristics Normal for Patient Stool Color Brown Green Weight 93 kg Blood Glucose* 110 103 Patient Weight 08/18/16 23:59 Weight 93 kg - General Appearance Exam: Patient is in the intensive care unit. Tracheostomy catheters in place. Patient is on the ventilator. She is on Levophed for blood pressure support. She appears to be in no acute distress. Lungsbreath sounds. Heart regular rate and rhythm. There is a systolic murmur. Abdomen shows a colostomy in place. Abdomen is soft. There is no guarding nor rigidity. There is no lower extremity swelling. There is a tunneled dialysis catheter in the right chest and also a second catheter in the right chest. The exit sites in the tunnels of the catheters do not appear to be infected or inflamed. Results - Lab Results 08/17/16 05:56 08/17/16 02:14 Most recent lab results ABG pH 7.40 pH Units (7.32-7.45) 08/17/16 04:53 ABG pCO2 39 mmHg (35-45) 08/17/16 04:53 ABG pO2 74 mmHg (85-104) L 08/17/16 04:53 ABG HCO3 24.2 mEQ/L (21-27) 08/17/16 04:53 ABG O2 Saturation 95 % (95-98) 08/17/16 04:53 Calcium 9.6 mg/dL (8.6-10.8) 08/17/16 02:14 Phosphorus 2.6 mg/dL (2.3-4.7) 08/16/16 19:27 Magnesium 1.8 mg/dL (1.6-2.6) 08/17/16 02:14 Consult Discharge Plan - Plan Referrals: NO,PCP [Primary Care Provider] -
[2016-08-18] MEDS ORDERED: Vancomycin 1,000 MG in D5% in Water 250 ML IVPB ONE (08:22)
[2016-08-18] MEDS: FentaNYL (PF) 1,000 MCG in 0.9 % Sodium Chloride 80 ML IVC SCH ×2 (09:19→23:12)
--- NOTE | 2016-08-18 09:31 | Pulmonology Progress Note ---
Date of Encounter: 08/18/16 Time of Encounter: 09:29 Assessment and Plan (1) Severe sepsis Current Visit: Yes Status: Acute Sepsis with polymicrobial bacteremia. Continue empiric antibiotics. She is on low-dose norepinephrine with no clear signs of hypoperfusion. We will continue to wean norepinephrine with a goal mean arterial pressure of 65 mmHg. (2) Bacteremia Current Visit: Yes Status: Acute Blood cultures obtained prior to admission reveal Proteus mirabilis and a gram- positive cocci (the micro-lab is concerned that this is an anaerobe). Possible sources of infection include catheter related line infection (she has two tunneled catheters including a hemodialysis catheter and tunneled port) , endocarditis, or intra-abdominal infection (in light of the concern for anaerobic bacteremia). The patient is on meropenem, vancomycin, and metronidazole. I have consulted infectious disease for further evaluation. A transthoracic echocardiogram is pending, but the patient may ultimately need a transesophageal echocardiogram. She has an unknown surgical history but there is a large midline abdominal scar and ostomy in place. Given the concern for anaerobic bacteremia, I will obtain CT scan of the abdomen (discussed with nephrology and OK to give IV contrast - she is anuric at baseline). She has a contrast dye allergy, and I will pretreat her with steroids and antihistamines. (3) Chronic respiratory failure Current Visit: Yes Status: Chronic The patient has a chronic trach - unclear when this was placed. Her baseline respiratory status is unclear, and we will attempt to investigate whether or not she is ventilator dependent at baseline. She does not have enteral access, and I have consulted speech therapy for swallow evaluation. I suspect she will need an NG tube for nutrition if she is unable to take adequate by mouth nutrition. Qualifiers: Respiratory failure complication: hypoxia Qualified Code(s): J96.11 - Chronic respiratory failure with hypoxia (4) Encephalopathy Current Visit: Yes Status: Acute Likely secondary to acute illness. Her neurologic exam is nonfocal, and mental status has improved significantly in the past 24 hours. Hold on imaging of the brain. (5) ESRD (end stage renal disease) on dialysis Current Visit: Yes Status: Acute I have consult with Dr. De Luna for management. I have stopped the IV fluids. She is on low-dose vasopressors, and would likely tolerate conventional dialysis without the need for continuous renal replacement therapy. (6) History of heart valve replacement with mechanical valve Current Visit: Yes Status: Acute By history. I was unable to auscultate a mechanical click or murmur on exam. Transthoracic echocardiogram is pending. Continue anticoagulation with a heparin drip. Continue ICU level of care. Subjective Principal diagnosis: Severe sepsis Interval history: No acute overnight events. Patient is more awake and interactive. Unable to obtain review of systems secondary to trach. Objective PUL Vital signs: Last Vital Signs Temp 98.0 F 08/18/16 08:20 Pulse 120 08/18/16 09:00 Resp 15 08/18/16 09:00 BP 108/80 08/18/16 09:00 Pulse Ox 98 08/18/16 09:00 General: Chronically ill-appearing, interactive with caregivers, no acute distress Eyes: nonicteric ENT: oropharynx moist Neck: supple, no lymphadenopathy, #[address] with benign appearing ostomy site Lungs: Coarse bilateral breath sounds Cardiovascular: Irregular, unable to auscultate mechanical click or murmur Gastrointestinal: normoactive bowel sounds, soft, non-tender, non-distended, ostomy in place with brown stool Integumentary: normal Extremities: no cyanosis, no edema Musculoskeletal: no deformities Neuro: interactive with caregivers non-focal exam Psych: Exam deferred Ventilator Settings Ventilator Settings: Ventilator Settings, Last 8 Hours Ventilator Mode VC+ Ventilator Mode VC+ Ventilator Mode VC+ Ventilator Mode VC+ Ventilator Mode VC+ Ventilator Mode VC+ Ventilator Mode VC+ Ventilator Mode VC+ Ventilator Tidal Volume 500 Setting Ventilator Tidal Volume 500 Setting Ventilator Tidal Volume 500 Setting Ventilator Tidal Volume 500 Setting Ventilator Tidal Volume 500 Setting Ventilator Tidal Volume 500 Setting Ventilator Tidal Volume 500 Setting Ventilator Tidal Volume 500 Setting Ventilator Respiratory Rate 12 Setting Ventilator Respiratory Rate 12 Setting Ventilator Respiratory Rate 12 Setting Ventilator Respiratory Rate 12 Setting Ventilator Respiratory Rate 12 Setting Ventilator Respiratory Rate 12 Setting Ventilator Respiratory Rate 12 Setting Ventilator Respiratory Rate 12 Setting Actual Respiratory Rate 18 Actual Respiratory Rate 16 Actual Respiratory Rate 17 Actual Respiratory Rate 15 Actual Respiratory Rate 19 Actual Respiratory Rate 19 Actual Respiratory Rate 18 Actual Respiratory Rate 14 Positive End Expiratory 5 Pressure Positive End Expiratory 5 Pressure Positive End Expiratory 5 Pressure Positive End Expiratory 5 Pressure Positive End Expiratory 5 Pressure Positive End Expiratory 5 Pressure Positive End Expiratory 5 Pressure Positive End Expiratory 5 Pressure Peak Inspiratory Airway 27 Pressure Peak Inspiratory Airway 28 Pressure Peak Inspiratory Airway 32 Pressure Peak Inspiratory Airway 32 Pressure Peak Inspiratory Airway 27 Pressure Peak Inspiratory Airway 27 Pressure Peak Inspiratory Airway 27 Pressure Peak Inspiratory Airway 29 Pressure Results - Laboratory Findings CBC and BMP: 08/17/16 05:56 08/17/16 02:14 ABG ABG pH 7.40 pH Units (7.32-7.45) 08/17/16 04:53 ABG pCO2 39 mmHg (35-45) 08/17/16 04:53 ABG pO2 74 mmHg (85-104) L 08/17/16 04:53 ABG O2 Saturation 95 % (95-98) 08/17/16 04:53 PT/INR, D-dimer PT 22.2 Seconds (9.4-12.1) H 08/17/16 00:11 Abnormal lab findings: Abnormal lab results RBC 3.63 M/mcL (3.82-4.97) L 08/17/16 05:56 Hgb 10.4 g/dL (11.5-15.4) L D 08/17/16 05:56 MCHC 29.5 g/dL (31.6-35.5) L 08/17/16 05:56 RDW 16.7 % (11.5-14.5) H 08/17/16 05:56 PT 22.2 Seconds (9.4-12.1) H 08/17/16 00:11 APTT 60.8 Seconds (26.0-36.0) H 08/18/16 03:41 ABG pO2 74 mmHg (85-104) L 08/17/16 04:53 BUN 21 mg/dL (7-20) H 08/17/16 02:14 Creatinine 3.28 mg/dL (0.57-1.11) H 08/17/16 02:14 Est GFR ( Amer) 17 (> 60) L 08/17/16 02:14 Est GFR (Non-Af Amer) 14 (> 60) L 08/17/16 02:14 Glucose 108 mg/dL (70-99) H 08/17/16 02:14 Total Bilirubin 2.1 mg/dL (0.2-1.2) H 08/17/16 02:14 Direct Bilirubin 1.2 mg/dL (0.0-0.5) H 08/17/16 00:11 Alkaline Phosphatase 217 Units/L (38-126) H 08/17/16 02:14 Troponin I 0.05 ng/mL (0-0.03) H* 08/17/16 08:05 B-Natriuretic Peptide 630 pg/mL (0-100) H 08/16/16 19:27 Albumin 2.2 g/dL (3.5-5.0) L 08/17/16 02:14 Globulin 4.9 g/dL (2.4-3.5) H 08/17/16 02:14 Albumin/Globulin Ratio 0.4 (1.1-2.2) L 08/17/16 02:14 - Clinical Findings Intake & Output: Intake & Output 08/17/16 08/18/16 08/18/16 23:59 07:59 15:59 Intake Total 259 / 259 320 / 320 240 / 240 Output Total 0 / 0 100 / 100 50 / 50 Balance 259 / 259 220 / 220 190 / 190 Weight 93 kg - VTE Reasons for not Prescribing Prophylaxis: Not indicated-Anticoagulated or INR therapeutic Consult Discharge Plan - Plan Referrals: NO,PCP [Primary Care Provider] -
--- NOTE | 2016-08-18 11:07 | ECHO - Doppler Report ---
Echo with Imaging Enhancement Agent Name: Brittnee Lundy Date of Study: 08/17/2016 Date: 1955 Ht: 64.0 in Medical Record#: [id number] Age: 61 Wt: 196.0 lb Gender: Female BSA: 1.94 Order #: [id number] Location: [facility] Room #: 03 Reading Physician: Nieves Villa DO Financial Developer: CARLOS SebastianT, [facility] Ordering Physician: Basil Mathis MD Primary Physician: None Indications: Sepsis, Mechanical valve Impressions: Technically challenging study with suboptimal windows. AFIB with RVR. LVEF 70%. Definity was used. Indeterminate diastolic function. Severe concentric left ventricular hypertrophy. RV is not well evaluated. Valves were suboptimally visualized with poor Doppler interrogation. IVC is not dilated. Left Ventricular Wall Motion: Rest Echo Findings All wall segments showed normal motion. Findings: Study Quality * Technically sub-optimal due to poor echocardiographic windows. ECG Findings * Atrial fibrillation. Left Ventricle * Indeterminate diastolic function. * Severe concentric left ventricular hypertrophy. * LVEF 70%. * Definity echo contrast was used. Aortic Valve * No aortic regurgitation. * Aortic valve not well visualized. * Suboptimal Doppler evaluation. Mitral Valve * No mitral regurgitation. * Mitral valve not well visualized. * Suboptimal Doppler evaluation. HR 119 bpm. Tricuspid Valve * Tricuspid valve not well visualized. * Trace tricuspid regurgitation. Pulmonic Valve * Pulmonic valve is not well visualized. * No pulmonic stenosis. * Trace pulmonic regurgitation. Pulmonary Artery * Pulmonary artery not well visualized. Left Atrium * Normal left atrial size. Right Atrium * Normal right atrial size. Right Ventricle * RV is not well evaluated. Interatrial Septum * Interatrial septum not well evaluated. Aorta * Not well visualized. IVC * The IVC is not dilated. History Hypertension Diabetes Hypercholesteremia History of CAD/PTCA Valvular Disease Valve Replacement Contrast: Definity 1.3 ml in 8.7 ml of saline 2 ml. Measurements: BP: 115/ 70 2D Normal Values RVIDd: 3.00 cm <2.7 cm IVSd: 1.70 cm 0.6 - 1.0 cm LVIDd: 3.60 cm 3.7 - 5.6 cm LVPWd: 1.70 cm 0.6 - 1.1 cm LVIDs: 2.10 cm 1.5 - 3.6 cm AO: 2.50 cm < 4.0 cm LA: 4.20 cm 2.0 - 4.0cm %FS: 41.70 cm >25 % LVOT Diam: 1.90 cm LA volume: 51 Mitral Valve Peak Velocity 2.19 m/sec Mean Velocity:1.48 m/sec Peak Grad:19.00 mmHg Mean Grad:10.00 mmHg Pressure Time:76.00 msec Dec Time:194.00 msec Valve Area:1.76 cm2 Peak E:2.21 m/sec Peak E' Lat Jalen:6.14 cm/s Peak E' Med Jalen:5.26 cm/s E/E' Lat Ratio:36 E/E' Med Ratio:42 LVOT Peak Jalen:1.27 m/sec Mean Jalen:.82 m/sec Peak Grad:6.00 mmHg Mean Grad:3.00 mmHg Aortic Valve Peak Jalen:2.13 m/sec Mean Jalen:1.51 m/sec Peak Grad:18.00 mmHg Mean Grad:11.00 mmHg Valve Area:2.25 cm2 Updated by Nieves Villa on 08/18/2016 11:00:19 AM electronically signed on 08/18/2016 11:01:21 AM with status of Final Wall Motion Lopez: 1=Normal, 2=Hypokinesis, 3=Akinesis, 4=Dyskinesis, 5=Aneurysmal, 6=Hyperkinetic, X=Not Visualized (Blank)=Missing
[2016-08-18] MEDS: MethylPREDNISolone 40 MG/ML VIAL IVP SCH ×3 (12:30→23:57)
--- NOTE | 2016-08-18 13:03 | Electrocardiograph Report ---
[address] [place], [place] [address] Test Date: 2016-08-16 Pat Name: Brittnee Lundy Department: 109 Room: [facility] Gender: F Design Center Consultant: : 1955 Requested By: Basil Mathis Order Number: [id number] Reading MD: Cory Barnett Measurements Intervals [place] Rate: 96 P: VT: 0 QRS: -48 QRSD: 112 T: 107 QT: 390 QTc: 444 Interpretive Statements ATRIAL FLUTTER MARKED LEFT AXIS DEVIATION PATTERN CONSISTENT WITH PULMONARY DISEASE POSSIBLE LEFT VENTRICULAR HYPERTROPHY ST DEVIATION AND MODERATE T-WAVE ABNORMALITY, CONSIDER LATERAL ISCHEMIA Electronically Signed On 08-18-2016 13:01:51 EDT by Cory Barnett
[2016-08-18] MEDS: Norepinephrine 4 MG in D5% in Water 250 ML IVC SCH (14:12)
[2016-08-18] MEDS: Heparin 25,000 UNIT/500 ML D5W 25,000 UNIT/500 ML MLS IVC SCH (14:12)
[2016-08-19] MEDS: Ipratropium/Albuterol Neb 3 ML IH PRN (01:58)
[2016-08-19] MEDS ORDERED: Aminoglycoside Consult 1 EACH MC ONE (07:33)
[2016-08-19] MEDS: MetroNIDAZOLE 500 MG/100 ML 500 MG/100 ML BAG IVPB SCH (08:34)
[2016-08-19] MEDS: Heparin 25,000 UNIT/500 ML D5W 25,000 UNIT/500 ML MLS IVC SCH (08:42)
--- NOTE | 2016-08-19 08:50 | Nephrology Progress Note ---
Date of Encounter: 08/19/16 Time of Encounter: 08:48 - Assessment and Plan (1) ESRD (end stage renal disease) on dialysis Current Visit: Yes Status: Acute Patient will undergo usual dialysis today. Orders will be submitted. Because of the bacteremia and the fact that she has 2 heart valve replacements both of which are tissue valves by suggestion is to remove all current catheters and give the patient a catheter holiday following dialysis today. We can then replace a tunnel dialysis catheter midweek. I discussed this with the patient and she is agreeable. I also discussed with Dr. Villasenor. (2) Bacteremia Current Visit: Yes Status: Acute (3) Chronic respiratory failure Current Visit: Yes Status: Chronic Qualifiers: Respiratory failure complication: hypoxia Qualified Code(s): J96.11 - Chronic respiratory failure with hypoxia (4) History of heart valve replacement with mechanical valve Current Visit: Yes Status: Acute Subjective Principal diagnosis: Severe sepsis Interval history: Patient is more alert today. She is communicating. She is scheduled for her usual dialysis today. Blood cultures are growing Proteus. Objective - Vital Signs Vital signs: Vital Signs Temp Pulse Resp BP Pulse Ox 08/19/16 07:30 22 111/75 98 08/19/16 07:15 96.2 F L 08/19/16 07:00 54 12 105/66 99 08/19/16 06:00 54 12 96/61 99 08/19/16 05:16 96.2 F L 08/19/16 04:04 12 113/70 99 08/19/16 04:00 71 14 113/70 100 08/19/16 03:00 73 12 92/61 99 08/19/16 02:00 73 12 116/70 99 08/19/16 01:29 19 100 08/19/16 01:00 58 12 95/59 98 08/19/16 00:26 12 115/70 98 08/19/16 00:21 97.3 F L 08/19/16 00:00 80 13 148/92 98 08/18/16 23:00 111 14 128/85 98 08/18/16 22:40 12 139/96 99 08/18/16 22:00 112 13 137/86 99 08/18/16 21:37 19 133/86 99 08/18/16 21:21 98.1 F 08/18/16 21:00 114 13 134/82 99 08/18/16 20:04 14 141/89 99 08/18/16 20:00 98.1 F 116 14 141/89 99 08/18/16 19:00 112 20 143/90 99 08/18/16 18:00 110 20 88/65 99 08/18/16 17:54 15 99 08/18/16 17:00 113 16 101/77 99 08/18/16 16:00 98.2 F 116 08/18/16 15:32 99 08/18/16 15:00 98.2 F 116 14 129/73 99 08/18/16 14:00 116 18 100/77 99 08/18/16 13:00 112 18 96/51 99 08/18/16 12:00 98.4 F 112 18 101/66 99 08/18/16 11:24 18 95/52 99 08/18/16 11:00 115 18 102/53 99 08/18/16 10:00 115 16 102/63 99 08/18/16 09:40 15 62/40 99 08/18/16 09:00 120 15 108/80 98 Intake and Output 08/18/16 08/19/16 08/19/16 23:59 07:59 15:59 Intake Total 587 / 587 571 / 571 50 / 50 Output Total 100 / 100 50 / 50 Balance 487 / 487 521 / 521 50 / 50 Intake: IV Fluids 347 / 347 571 / 571 50 / 50 FentaNYL (PF) 1,000 MCG 100 / 100 / 17 In 0.9 % Sodium Chloride 80 ML @ 25 MCG/HR 2.5 mls /hr IVC CONT [facility] Rx#: [id number] Heparin 25,000 UNIT/500 450 / 450 50 / 50 ML D5W 25,000 unit In 500 ml @ 14 UNIT/KG/HR 24.92 mls/hr IVC .Q20H4M [facility] Rx#:[id number] Levophed 4 MG In Dextrose 147 / 147 4 / 4 5% 250 ML @ 5 MCG/MIN 19 .05 mls/hr IVC CONT [facility] Rx#:[id number] Flagyl 500 MG/100 ML 500 100 / 100 100 / 100 mg In 100 ml @ 100 mls/hr IVPB Q8HR [facility] Rx#: [id number] Oral 240 / 240 Output: Stool 50 / 50 50 / 50 Gastric Drainage 50 / 50 Other: Meal Dinner Percent of Meal Consumed 80% Weight 97.2 kg Blood Glucose* 165 136 Patient Weight 08/19/16 23:59 Weight 97.2 kg - General Appearance Exam: Patient is alert. She is in no acute distress. She is currently on CPAP. Lungs breath sounds otherwise clear. Heart irregular rate and rhythm consistent with atrial fibrillation. Abdomen is benign. A colostomy is present. She has minimal lower extremity swelling. She has 2 tunneled catheters in the right chest one of which is a dialysis catheter. - Lab 08/17/16 05:56 08/17/16 02:14 Most recent lab results ABG pH 7.40 pH Units (7.32-7.45) 08/17/16 04:53 ABG pCO2 39 mmHg (35-45) 08/17/16 04:53 ABG pO2 74 mmHg (85-104) L 08/17/16 04:53 ABG HCO3 24.2 mEQ/L (21-27) 08/17/16 04:53 ABG O2 Saturation 95 % (95-98) 08/17/16 04:53 Calcium 9.6 mg/dL (8.6-10.8) 08/17/16 02:14 Phosphorus 2.6 mg/dL (2.3-4.7) 08/16/16 19:27 Magnesium 1.8 mg/dL (1.6-2.6) 08/17/16 02:14 - VTE Reasons for not Prescribing Prophylaxis: Not indicated-Anticoagulated or INR therapeutic Consult Discharge Plan - Plan Referrals: NO,PCP [Primary Care Provider] -
[2016-08-19] MEDS ORDERED: 0.9 % Sodium Chloride 250 ML IV PRN (08:51)
[2016-08-19] MEDS ORDERED: 0.9 % Sodium Chloride 2,000 ML ONE (09:16)
[2016-08-19 10:14] LABS: Basophils % 0.2 %; Hematocrit 29.9 % (35.3-44.9); Hemoglobin 9.3 g/dL (11.5-15.4); Immature Granulocytes % 1.8 % (0-4); Lymphocytes # 0.7 K/mcL (0.6-4.6); Lymphocytes % 15.4 %; Mean Corpuscular HGB Conc 31.1 g/dL (31.6-35.5); Mean Corpuscular Hemoglobin 29.2 pg (28.0-33.3); Mean Platelet Volume 10.4 fL (9.4-12.4); Monocytes # 0.3 K/mcL (0.0-1.3); Monocytes % 6.4 %; Platelet Count 173 K/mcL (140-400); Red Blood Count 3.18 M/mcL (3.82-4.97); Red Cell Distribution Width 16.3 % (11.5-14.5); Segmented Neutrophils % 76.2 %
[2016-08-19 10:15] LABS: Neutrophils # 3.4 K/mcL (1.6-8.9)
--- NOTE | 2016-08-19 10:16 | Electrocardiograph Report ---
[address] [address] Test Date: 2016-08-16 Pat Name: Brittnee Lundy Department: 103 Room: [facility] Gender: F Reel Stripper: : 1955 Requested By: Katharina Abrams Order Number: [id number] Reading MD: Shmuel Buchanan MD Measurements Intervals [place] Rate: 114 P: 105 MN: 126 QRS: -46 QRSD: 113 T: 112 QT: 365 QTc: 432 Interpretive Statements SINUS TACHYCARDIA LEFT ANTERIOR FASCICULAR BLOCK LEFT VENTRICULAR HYPERTROPHY AND ST-T CHANGE Poor R wave progression Electronically Signed On 08-19-2016 10:15:26 EDT by Shmuel Buchanan MD
[2016-08-19 10:24] LABS: Albumin/Globulin Ratio 0.4 (1.1-2.2); Bilirubin,Total 1.1 mg/dL (0.2-1.2); Globulin 4.5 g/dL (2.4-3.5); Potassium 4.6 mEq/L (3.5-4.5); Total Protein 6.5 g/dL (6.0-8.3)
[2016-08-19 10:25] LABS: Calcium 11.2 mg/dL (8.6-10.8)
--- NOTE | 2016-08-19 11:15 | Infectious Disease Consult ---
Date of Encounter: 08/19/16 Time of Encounter: 11:13 Assessment and Plan (1) Severe sepsis Status: Acute Assessment and plan: The patient had three SIRS criteria plus encephalopathy on admission. She also had leukocytosis on labs drawn at the [facility]. Likely secondary to bacteremia. Improved. The patient has been afebrile x 24 hours. Tachycardia has resolved. WBC has normalized. Encephalopathy appears improved. Blood cultures drawn 08/13/16 at the [facility] were positive 1/2 sets for P. mirabilis (peripheral). Blood culture drawn from the patient's tunneled PICC line positive for GPC, likely anaerobe given the prolonged time it has taken to grow. Still awaiting final ID. Repeat blood cultures drawn 08/16/16 in the ED are NGTD (drawn peripherally). (2) Bacteremia Status: Acute Assessment and plan: Causative organism P. mirabilis and GPC (likely anaerobic). Source unclear --> pneumonia vs. tunneled PICC line or Permacath infection vs. other. Patient anuric. Possible GI or lung source. Blood cultures drawn 08/13/16 at the [facility] were positive 1/2 sets for P. mirabilis (drawn peripherally). Blood culture drawn from the tunneled PICC was positive for GPC, likely anaerobic given the prolonged time it has taken to grow. Still awaiting final ID. Repeat blood cultures (drawn peripherally) 08/16/16 are NGTD. No cultures were drawn from the tunneled PICC line in the ED. Received Invanz and Vancomycin in the ED (started on 08/15/16 per ECF staff). Details surrounding the insertion and duration of the tunneled PICC line unclear. F staff states they are unsure when/where the line was inserted or why. States the line was not being used at the [facility]. The patient's mental status and trach precludes my ability to obtain information from her. Would recommend removal of the tunneled PICC line since the patient has no indication for it in the watermelon inspector. Consider removal of the Perma-cath as well as it is a possible source of infection as well. Discussed with Dr. De Luna who is agreeable to have line removed after HD today. Consult IR for removal of Perma-cath and tunneled PICC line. Get blood cultures x 2 sets peripherally once lines have been removed. Send line tips for culture. Avoid re-insertion of any central access (PICC, CVC, or perma-cath) until blood cultures drawn today are negative x 48 hours. Continue Meropenem 1 gram IV Q24H for now given the patient's history of ESBL and pending sputum culture. On HD days, give after HD. Await sputum culture results. If no ESBL, will de-escalate. Discontinue Flagyl - Meropenem provides anaerobic coverage. Continue Vancomycin IV for now until we get final ID of GPC. Pharmacy to dose. Goal trough approximately 15. Duration of treatment depends on the clinical picture. Monitor renal function and for drug toxicity and dose-adjust antibiotics. (3) Acute encephalopathy Status: Acute Assessment and plan: Etiology likely secondary to sepsis. Appears improved, unsure of the patient's baseline. Management per the primary team. (4) Pleural effusion, left Status: Acute (5) Personal history of heart valve replacement Status: Acute Assessment and plan: Review of the patient's [facility] medical record reveals that the patient underwent an MVR/AVR with tissue in 2011 with redo in 2016 secondary to severe symptomatic MVR and aortic valve stenosis. (6) ESRD (end stage renal disease) on dialysis Status: Chronic (7) Chronic respiratory failure Status: Chronic Assessment and plan: Status post tracheostomy in 2016. Continue vent support as outline by the primary team. Qualifiers: Respiratory failure complication: hypoxia Qualified Code(s): J96.11 - Chronic respiratory failure with hypoxia Infectious Disease HPI - Data of Consult Patient: new to practice Consult date: 08/19/16 Requesting Physician: Yuri Ventura MD Primary Care Provider: PCP NO - Consult Narrative Reason for consult: Bacteremia History of present illness: Ms. Lundy is a 61 year old female with a past medical history of A. fib, COPD , CAD, chronic respiratory failure requiring tracheostomy and mechanical ventilation, end-stage renal disease on hemodialysis Friday, Friday, and Friday, valvular heart disease status post AVR and MVR in 2011 with repeat in 2015 with a tissue graft. The patient was initially the hospital August 16 for severe sepsis and bacteremia. We are consulted August 19 for further evaluation and treatment recommendations regarding bacteremia. The patient's a 61-year-old female with past medical history as stated above. The patient has a tracheostomy and has somewhat of an altered mental status, therefore, most of the information is obtained from the medical record. Apparently, the patient presented to the emergency department after she was noted to have a calcium level of 13.6 and positive blood cultures. The patient had been complaining of nausea and vomiting and fevers. The [facility] nurse practitioner had ordered labs, blood cultures, an ultrasound of the gallbladder and liver. Blood cultures obtained on August 13 were positive for Proteus mirabilis 1 out of 2 sets. The positive culture had been drawn peripherally. Additionally, the patient a blood culture drawn from her tunneled PICC line that came back positive for gram-positive cocci, which is likely an anaerobe, final ID and sensitivities are pending. Upon arrival to the ER, the patient was afebrile, but she did spike a fever later that night. She was tachycardic and hypotensive. Her white blood cell count had normalized. His metabolic panel was significant for an elevated bilirubin and alkaline phosphatase and troponin. Chest x-ray showed a moderate sized left pleural effusion with atelectasis. She received 2 L of IV fluids, but continued to have hypotension. She was subsequent started on levophed and admitted to the intensive care unit. Blood cultures were obtained 2 sets in the emergency department, both peripheral, that are currently no growth to date. The patient was started on empiric vancomycin, meropenem, and Flagyl. A sputum culture was obtained that is positive for gram-negative rods. Final ID and sensitivities are pending. Transthoracic echocardiogram shows an EF of 70%. CT the chest, abdomen, and pelvis showed findings consistent with pulmonary edema with pleural effusions, bilateral lower lobe atelectasis or pneumonia, cholelithiasis or biliary sludge , cystitis, and sigmoid diverticulosis. Since admission, nephrology is been consulted and has been following. Recommendations have been made to remove the patient's permacath and tunneled PICC line. We've been asked to evaluate and make further recommendations. As stated above, the patient is a poor historian and is difficult to understand , therefore most of the information is obtained from medical record. I did make telephone contact with the [facility] staff who stated the patient had blood cultures obtained on August 13 which came back positive on August 15 and the patient was subsequent started on Invanz and vancomycin. Additionally, I was able to look the patient up in the [facility] online medical record system and noted that the patient had a 76 day stay at that facility from January 2016 to April 2016 after which she was subsequently discharged to an LTAC. There is no record as to when the patient's tunneled PICC line was placed or why. CC: Yuri Ventura MD Past Med Surg Social Fam HX - Past Medical History Attestation: Yes The following information was validated with the patient. Source: patient, old records reviewed, nursing notes reviewed Medical history: atrial fibrillation, COPD, coronary artery disease, diabetes, dialysis, GERD, hyperlipidemia, hypertension, peripheral artery disease, renal disease (HD M/W/F), thyroid disease (hypothryoid), valvular heart disease ( mitral regurg, aortic stenosis with AVR/MVR tissue valvel replacement 2011 with redo in 2015), other (chronic respiratory failure with trach, PVD, ischemic colitis with cecal perf with repair 01/2016) Psychiatric history: depression - Past Surgical History Surgical History: colostomy, other (Tissue AVR/MVR 2013 with redo in 2015 at [facility] ), tracheostomy - Social History Smoking Status: Never smoker Smokeless Tobacco Status: No Alcohol use: none Drug use: none Occupational status: disabled Current living situation: [facility] Activity Level: Wheelchair bound Recent Out of Country Travel Within the Last 8 Weeks: No Exposure or Possible Exposure to Illness During Travel: No - Family History Mother History Unknown: Yes Father History Unknown: Yes Infectious Disease-CN:Meds Alprazolam [Xanax 0.25 MG Tablet] 0.25 mg PO Q6H PRN 08/16/16 [History] Atorvastatin Calcium [Lipitor] 20 mg PO HS 08/16/16 [History] Calcitonin-[place], Synthetic [Miacalcin] 400 unit SQ Q12H 08/16/16 [History] Cyanocobalamin (Vitamin B-12) [Vitamin B-12] 100 mcg PO DAILY 08/16/16 [History] Ertapenem Sodium [Invanz] 500 mg IV DAILY 08/16/16 [History] Famotidine [Heartburn Prevention] 20 mg PO Q12H 08/16/16 [History] Folic Acid 1 mg PO DAILY 08/16/16 [History] Ipratropium/Albuterol Neb [Duoneb] 3 ml IH Q4H PRN 08/16/16 [History] Ipratropium/Albuterol Neb [Duoneb] 3 ml IH Q6H 08/16/16 [History] Isosorbide DInitrate [Isosorbide Dinitrate] 5 mg PO Q12H 08/16/16 [History] Levothyroxine [Synthroid] 150 mcg PO QAM 08/16/16 [History] Magnesium Oxide [Mag-Ox] 400 mg PO Q12H 08/16/16 [History] Metoprolol [Lopressor] 25 mg PO DAILY 08/16/16 [History] Midodrine [ProAmatine] 15 mg PO DAILY 08/16/16 [History] Multivitamin [Multi-Day Vitamins] 1 each PO DAILY 08/16/16 [History] Ondansetron HCl [Zofran] 4 mg PO Q4H PRN 08/16/16 [History] Oxycodone HCl 10 mg PO Q3H PRN 08/16/16 [History] Sertraline [Zoloft] 75 mg PO DAILY 08/16/16 [History] Terbinafine HCl [Lamisil] 1 appl TP BID 08/16/16 [History] Zolpidem [Ambien] 5 mg PO HS 08/16/16 [History] Allergies codeine Allergy (Verified 08/16/16 19:07) Hives Hydromorphone Allergy (Verified 08/16/16 19:09) Hives Iodinated Contrast Media - Oral and Allergy (Verified 08/16/16 19:10) Hives Penicillins Allergy (Verified 08/16/16 19:09) Hives povidone-iodine Allergy (Verified 08/16/16 19:10) Hives All systems: reviewed and no additional remarkable complaints except as stated Exam - Constitutional Vitals: Temp Pulse Resp BP Pulse Ox 96.2 F L 60 20 94/59 97 08/19/16 10:30 08/19/16 10:00 08/19/16 10:30 08/19/16 11:00 08/19/16 10:00 General appearance: average body habitus, cooperative, no acute distress - Head Head exam: Present: atraumatic, normal inspection, normocephalic - Eye Eye exam: Present: EOMI, normal appearance, PERRL Pupils: Present: normal accommodation - ENT ENT exam: Present: mucous membranes moist - Neck Neck exam: Present: normal inspection Additional comments: Tracheostomy midline with O2 via the vent. No purulent drainage or erythema noted at the trach site. - Respiratory Respiratory exam: Present: CTAB. Absent: rales, respiratory distress, rhonchi, wheezes - Cardiovascular Cardiovascular exam: Present: RRR, +S1, +S2 - GI/Abdominal GI/Abdominal exam: Present: normal bowel sounds, soft. Absent: distended, tenderness Additional comments: Ileostomy noted to the RLQ with moderate amount of dark green/brown liquid stool. Well-healed abdominal scar noted to the abdomen, just left of the midline. - Extremities Exam Extremities exam: Present: pedal edema (1+ BLE). Absent: joint swelling, tenderness - Neurological Exam Neurological exam: Present: alert, oriented X3, no focal deficits, strengths equal and symetr throughout - Psychiatric Psychiatric exam: Present: normal affect, normal mood - Skin Skin exam: Present: dry, intact, normal color, warm - Additional findings Additional findings: Permacath noted to the right upper chest with transparent dressing C/D/I. Currently accessed for HD. No erythema, drainage, or tendernessn noted. Tunneled PICC line noted to the right upper chest with transparent dressing C/D/ I. No erythema, warmth, or drainage noted. Infectious Disease CN: Results - Labs CBC & Chem 7: 08/19/16 10:03 08/19/16 10:03 - VTE Reasons for not Prescribing Prophylaxis: Not indicated-Anticoagulated or INR therapeutic Consult Discharge Plan - Plan Referrals: NO,PCP [Primary Care Provider] -
[2016-08-19 11:19] LABS: Hepatitis B Surface Antibody 7.95 mIU/mL
--- NOTE | 2016-08-19 14:17 | Pulmonology Progress Note ---
<Navi Sanz - Last Filed: 08/19/16 13:47> Date of Encounter: 08/19/16 Time of Encounter: 13:47 Assessment and Plan (1) Severe sepsis Current Visit: Yes Status: Acute 61-year-old female presented to ER with positive blood cultures from her ECF on August 13 which pain back positive for Proteus mirabilis and gram-positive cocci (obtained from tunneled PICC). She was started on Invanz and vancomycin at her ECF. On presentation patient was tachycardic and hypotensive, and confused. Patient was continued on vancomycin, started on meropenem and Flagyl. Today patient is alert and oriented, tachycardia and hypotension has resolved. She is off pressors. CBC shows normal wbc. peripheral Blood cultures on 08/13 show P. mirabilis and blood cultures of tunneled PICC line show GPC, likely anarobe Repeat peripheral blood cultures were taken in ER on admission which are negative preliminarily. Sputum cultures are positive for gram negative radha. We will continue patient on vanc and meorpenam and flagyl will be d/c (2) Bacteremia Current Visit: Yes Status: Acute polymicrobia: peripheral Blood cultures on 08/13 show P. mirabilis and blood cultures of tunneled PICC line show GPC, likely anarobe may be 2nd to tunneled PICC, perma cath, pneumonia (gram - radha), CT abdomen shows evidence of possible diverticulitis, bladder wall thickening consistent with cystitis There is concern for endocarditis due to patient having history of mitral valve and aortic valve replacement. TTE was done showing EF of 70% however all 4 valves were not visualized due to patient being in afib. Study was inconclusive. Plan will be to remove perma cath, PICC line and repeat blood cultures and cultures of the catheter tips. If blood cultures are negative for 48 hours patient can be be reconsidered for central venous access. Patient will have powerglide inserted and has an 18 gauge peripheral access on left arm. Appreciate ID for recommendations. (3) Acute encephalopathy Current Visit: Yes Status: Resolved 2nd bactermia/sepsis Patient presented confused. She is currently awake alert and conversing. (4) ESRD (end stage renal disease) on dialysis Current Visit: Yes Status: Chronic hx of ESRD dialysis dependent. Will undergo dialysis today. After dialysis patients tunneled dialysis catheter will be removed. His blood cultures are negative for 48 hours patient can have a needed dialysis catheter placed. Nephrology on board. (5) Chronic respiratory failure Current Visit: Yes Status: Chronic Patient had a 76 day admission at [facility] following replacement of mitral valve and aortic valve with postoperative complications of respiratory failure, and prolonged use of mechanical ventilation where she ended up needing a tracheostomy. Currently patient is on CPAP. She is tolerating it well. We will continue CPAP. Qualifiers: Respiratory failure complication: hypoxia Qualified Code(s): J96.11 - Chronic respiratory failure with hypoxia (6) DVT prophylaxis Current Visit: Yes Status: Acute heparin SQ (7) History of heart valve replacement with mechanical valve Current Visit: Yes Status: Acute As stated above patient had history of heart valve replacement including mitral valve and aortic valve in 2011 with tissue MVR and AVR replacement last year. She was discharged from [facility] on anticoagulation of aspirin and sb heparin. According to [facility] discharge note patient was not put on novel oral anticoagulation or warfarin because of complications of postoperative anemia. d/c heparin. continue home aspirin and heparin. hgb stable (8) Vaginal bleeding, abnormal Current Visit: Yes Status: Acute Patient had an episode of vaginal bleeding after admission. She states that this started 10 years ago when she was started on dialysis. She denies any history of vaginal, endometrial, ovarian cancer. She states she has had 10 pregnancies. She has not followed up with her COUNSELING CENTER MANAGER since this bleeding was started. We will consult COUNSELING CENTER MANAGER for further recommendations. -Transvaginal ultrasound ordered. (9) Atrial fibrillation Current Visit: Yes Status: Acute Rate is controlled. s/p AVR and MVR at [facility] patient has had afib. She was d/c on aspirin and heparin as anticogulation Rhythm control with metorlol. Qualifiers: Atrial fibrillation type: chronic Qualified Code(s): I48.2 - Chronic atrial fibrillation Subjective Principal diagnosis: Severe sepsis Interval history: 61-year-old female with a history of aortic stenosis, end-stage renal disease, postoperative anemia, acute postoperative respiratory insufficiency with tracheostomy, cardiogenic postoperative shock was admitted to the ICU for sepsis. [facility] records: Last year patient had a extended admission at [facility]. Has hx of AVR and MVR in 2011. She was admitted to [facility] on 01/22/16 open heart surgery service for severe dyspnea and exertion secondary to aortic valve stenosis. 01/31/2016 patient underwent redo sternotomy, aortic root enlargement with pericardial patch, tissue AVR, and tissue MVR. Post operative the patient went into cardiogenic shock, respiratory insufficiency requiring prolonged mechanical ventilation and had a tracheostomy done on 02/14, new onset atrial fibrillation. On 03/03/16 patient was found to have pneumatosis and bowel perforation on CT abdomen and pelvis. Surgical intervention found ischemic colitis and cecal perforation. She underwent right hemicolectomy and abthera was placed. On 03/05 patient returned to the OR for washout, mucous fistula, and ileostomy. Postoperative course was complicated by respiratory failure, CRRT need, ileus, spetic shock, anemia limiting anticoagulation and a flutter. Patient was discharged to an LTACH for ongoing vent weaning. Her atrial fibrillation was controlled on digoxin and amiodarone and anticoagulated by aspirin and prophylactic heparin. This morning patient is tolerating CPAP. She has bloody vaginal discharge. Patient states she has had bloody vaginal discharge of 10 years that has never been followed up with. It started after starting dialysis. She denies hx of cancer. States she has had seven deliveries. Due to her tracheotomy it was difficult to obtain any more information. Denies pain. She is alert and awake. Objective PUL Vital signs: Last Vital Signs Temp 97.6 F 08/19/16 12:04 Pulse 60 08/19/16 11:00 Resp 14 08/19/16 11:00 BP 98/75 08/19/16 13:30 Pulse Ox 98 08/19/16 11:00 General appearance: no acute distress, alert Eyes: nonicteric ENT: oropharynx moist Mallampati (class): 3 Effort: other (tracheostomy on bipap) Auscultation: bilateral: clear Cardiovascular: irregular rhythm (afib) Gastrointestinal: normoactive bowel sounds, soft, non-tender, non-distended, other (colostomy ouputting fecal material. Midline abdominal scar. ) Integumentary: decubitus ulcer (deep tissue ulcer 10x10 well dressed) normal mental status Ventilator Settings Ventilator Settings: Ventilator Settings, Last 8 Hours Ventilator Mode CPAP Ventilator Mode CPAP Ventilator Mode CPAP Ventilator Mode CPAP Ventilator Mode VC+ Ventilator Mode VC+ Ventilator Mode VC+ Ventilator Tidal Volume 500 Setting Ventilator Tidal Volume 500 Setting Ventilator Tidal Volume 500 Setting Ventilator Tidal Volume 500 Setting Ventilator Tidal Volume 500 Setting Ventilator Tidal Volume 500 Setting Ventilator Respiratory Rate 12 Setting Ventilator Respiratory Rate 12 Setting Actual Respiratory Rate 14 Actual Respiratory Rate 14 Actual Respiratory Rate 14 Actual Respiratory Rate 14 Actual Respiratory Rate 12 Actual Respiratory Rate 12 Actual Respiratory Rate 12 Positive End Expiratory 5 Pressure Positive End Expiratory 5 Pressure Positive End Expiratory 5 Pressure Positive End Expiratory 5 Pressure Positive End Expiratory 5 Pressure Positive End Expiratory 5 Pressure Positive End Expiratory 5 Pressure Peak Inspiratory Airway 13 Pressure Peak Inspiratory Airway 14 Pressure Peak Inspiratory Airway 13 Pressure Peak Inspiratory Airway 14 Pressure Peak Inspiratory Airway 13 Pressure Peak Inspiratory Airway 24 Pressure Peak Inspiratory Airway 23 Pressure Results - Laboratory Findings CBC and BMP: 08/19/16 10:03 08/19/16 10:03 ABG ABG pH 7.40 pH Units (7.32-7.45) 08/17/16 04:53 ABG pCO2 39 mmHg (35-45) 08/17/16 04:53 ABG pO2 74 mmHg (85-104) L 08/17/16 04:53 ABG O2 Saturation 95 % (95-98) 08/17/16 04:53 PT/INR, D-dimer PT 22.2 Seconds (9.4-12.1) H 08/17/16 00:11 Abnormal lab findings: Abnormal lab results RBC 3.18 M/mcL (3.82-4.97) L 08/19/16 10:03 Hgb 9.3 g/dL (11.5-15.4) L 08/19/16 10:03 Hct 29.9 % (35.3-44.9) L 08/19/16 10:03 MCHC 31.1 g/dL (31.6-35.5) L 08/19/16 10:03 RDW 16.3 % (11.5-14.5) H 08/19/16 10:03 PT 22.2 Seconds (9.4-12.1) H 08/17/16 00:11 APTT 78.2 Seconds (26.0-36.0) H 08/19/16 05:29 ABG pO2 74 mmHg (85-104) L 08/17/16 04:53 Sodium 131 mEq/L (136-145) L 08/19/16 10:03 Potassium 4.6 mEq/L (3.5-4.5) H 08/19/16 10:03 BUN 40 mg/dL (7-20) H D 08/19/16 10:03 Creatinine 5.19 mg/dL (0.57-1.11) H D 08/19/16 10:03 Est GFR ( Amer) 10 (> 60) L 08/19/16 10:03 Est GFR (Non-Af Amer) 8 (> 60) L 08/19/16 10:03 Glucose 129 mg/dL (70-99) H 08/19/16 10:03 POC Glucose 178 (58-89) H 08/18/16 23:40 Calcium 11.2 mg/dL (8.6-10.8) H D 08/19/16 10:03 Direct Bilirubin 1.2 mg/dL (0.0-0.5) H 08/17/16 00:11 Alkaline Phosphatase 200 Units/L (38-126) H 08/19/16 10:03 Troponin I 0.05 ng/mL (0-0.03) H* 08/17/16 08:05 B-Natriuretic Peptide 630 pg/mL (0-100) H 08/16/16 19:27 Albumin 2.0 g/dL (3.5-5.0) L 08/19/16 10:03 Globulin 4.5 g/dL (2.4-3.5) H 08/19/16 10:03 Albumin/Globulin Ratio 0.4 (1.1-2.2) L 08/19/16 10:03 - Clinical Findings Intake & Output: Intake & Output 08/18/16 08/19/16 08/19/16 23:59 07:59 15:59 Intake Total 587 / 587 571 / 571 880 / 880 Output Total 100 / 100 50 / 50 300 / 300 Balance 487 / 487 521 / 521 580 / 580 Weight 97.2 kg - VTE Reasons for not Prescribing Prophylaxis: Not indicated-Anticoagulated or INR therapeutic Consult Discharge Plan - Plan Referrals: NO,PCP [Primary Care Provider] - <Jonathon Villasenor - Last Filed: 08/19/16 16:56> Objective PUL Vital signs: Last Vital Signs Temp 97.6 F 08/19/16 14:24 Pulse 70 08/19/16 16:00 Resp 24 08/19/16 16:32 BP 91/69 08/19/16 16:00 Pulse Ox 97 08/19/16 16:32 Ventilator Settings Ventilator Settings: Ventilator Settings, Last 8 Hours Ventilator Mode CPAP Ventilator Mode CPAP Ventilator Mode CPAP Ventilator Mode CPAP Ventilator Mode CPAP Ventilator Mode CPAP Ventilator Mode CPAP Ventilator Mode CPAP Ventilator Mode CPAP Ventilator Tidal Volume 500 Setting Ventilator Tidal Volume 500 Setting Ventilator Tidal Volume 500 Setting Ventilator Tidal Volume 500 Setting Ventilator Tidal Volume 500 Setting Ventilator Tidal Volume 500 Setting Ventilator Tidal Volume 500 Setting Ventilator Tidal Volume 500 Setting Actual Respiratory Rate 16 Actual Respiratory Rate 16 Actual Respiratory Rate 16 Actual Respiratory Rate 16 Actual Respiratory Rate 17 Actual Respiratory Rate 14 Actual Respiratory Rate 14 Actual Respiratory Rate 14 Positive End Expiratory 5 Pressure Positive End Expiratory 5 Pressure Positive End Expiratory 5 Pressure Positive End Expiratory 5 Pressure Positive End Expiratory 5 Pressure Positive End Expiratory 5 Pressure Positive End Expiratory 5 Pressure Positive End Expiratory 5 Pressure Positive End Expiratory 5 Pressure Peak Inspiratory Airway 13 Pressure Peak Inspiratory Airway 13 Pressure Peak Inspiratory Airway 14 Pressure Peak Inspiratory Airway 13 Pressure Results - Laboratory Findings CBC and BMP: 08/19/16 10:03 08/19/16 10:03 ABG ABG pH 7.40 pH Units (7.32-7.45) 08/17/16 04:53 ABG pCO2 39 mmHg (35-45) 08/17/16 04:53 ABG pO2 74 mmHg (85-104) L 08/17/16 04:53 ABG O2 Saturation 95 % (95-98) 08/17/16 04:53 PT/INR, D-dimer PT 22.2 Seconds (9.4-12.1) H 08/17/16 00:11 Abnormal lab findings: Abnormal lab results RBC 3.18 M/mcL (3.82-4.97) L 08/19/16 10:03 Hgb 9.3 g/dL (11.5-15.4) L 08/19/16 10:03 Hct 29.9 % (35.3-44.9) L 08/19/16 10:03 MCHC 31.1 g/dL (31.6-35.5) L 08/19/16 10:03 RDW 16.3 % (11.5-14.5) H 08/19/16 10:03 PT 22.2 Seconds (9.4-12.1) H 08/17/16 00:11 APTT 78.2 Seconds (26.0-36.0) H 08/19/16 05:29 ABG pO2 74 mmHg (85-104) L 08/17/16 04:53 Sodium 131 mEq/L (136-145) L 08/19/16 10:03 Potassium 4.6 mEq/L (3.5-4.5) H 08/19/16 10:03 BUN 40 mg/dL (7-20) H D 08/19/16 10:03 Creatinine 5.19 mg/dL (0.57-1.11) H D 08/19/16 10:03 Est GFR ( Amer) 10 (> 60) L 08/19/16 10:03 Est GFR (Non-Af Amer) 8 (> 60) L 08/19/16 10:03 Glucose 129 mg/dL (70-99) H 08/19/16 10:03 POC Glucose 178 (58-89) H 08/18/16 23:40 Calcium 11.2 mg/dL (8.6-10.8) H D 08/19/16 10:03 Direct Bilirubin 1.2 mg/dL (0.0-0.5) H 08/17/16 00:11 Alkaline Phosphatase 200 Units/L (38-126) H 08/19/16 10:03 Troponin I 0.05 ng/mL (0-0.03) H* 08/17/16 08:05 B-Natriuretic Peptide 630 pg/mL (0-100) H 08/16/16 19:27 Albumin 2.0 g/dL (3.5-5.0) L 08/19/16 10:03 Globulin 4.5 g/dL (2.4-3.5) H 08/19/16 10:03 Albumin/Globulin Ratio 0.4 (1.1-2.2) L 08/19/16 10:03 - Clinical Findings Intake & Output: Intake & Output 08/19/16 08/19/16 08/19/16 07:59 15:59 23:59 Intake Total 571 / 571 1220 / 1220 Output Total 50 / 50 2900 / 2900 Balance 521 / 521 -1680 / -1680 Weight 97.2 kg - Attending Attestation I examined this patient and my medical decision-making was reviewed with the ART SPECIALIST/PA/Advanced Practice Nurse/Resident Physician. I agree with the documented findings, disposition and treatment plan as described except to the extent set forth below. Patient seen and examined. Labs, radiology, chart personally reviewed. Agree with resident's history and physical, assessment, plan with following comments: COMPUTER SYSTEMS INFORMATION DIRECTOR: Patient follows commands, Pulmonary: Acceptable oxygenation and ventilation. Changed vent to VC +, patient then was changed to pressure support and she tolerated trial. Will continue to wean off. Cardiovascular: stable. If blood culture positive, then will need KIERA. GI: Nutrition per dietary and GI prophylaxis per routine Heme: DVT prophylaxis per routine ID: Continue antibiotics and plan to de-escalation. Agree with ID recommendations. Renal; Discussed with Dr. Shrestha Endorcine: blood glucose is monitored Lines: all lines checked and no evidence of infections Skin: skin care to prevent pressure ulcers per nursing routine care
[2016-08-19] MEDS: Meropenem 1,000 MG in 0.9 % Sodium Chloride Mini Bag 100 ML IVPB SCH (14:42)
[2016-08-19] MEDS: *HR* OxyCODONE Immed Rel 5 MG TABLET PO PRN ×2 (14:42→19:49)
[2016-08-19] MEDS: *HR* Heparin 5,000 UNIT/ML VIAL SQ SCH ×2 (14:43→19:50)
--- NOTE | 2016-08-19 15:43 | IR Procedure Note ---
Date of procedure: 08/19/16 Consent Obtained: Verbal consent Timeout: Correct patient and procedure verified, Correct site verified, Time out performed, Skin prep completed Indications: infected lines Procedure Performed: removal of 2 tunneled lines Site/Technique: rt chest Results/Findings: Adequate removal in one piece Estimated blood loss (cc): 0 Complications: None; Tolerated procedure well Post Procedure Treatment Plan: monitor
--- NOTE | 2016-08-19 16:20 | OB/GYN Consult Note ---
Date of Encounter: 08/19/16 Time of Encounter: 16:13 Assessment and Plan (1) Vaginal bleeding, abnormal Current Visit: Yes Status: Acute Recommend transvaginal ultrasound. Pending ultrasound results, recommend surgical intervention when medically stable: hysteroscopy and D&C with endometrial sampling. If medically stable for surgery, please notify as can add on this coming . Continue following hemoglobin and hematocrit. Agree with current medical management. We appreciate this consultation. Please notify when medically stable for surgical intervention. (2) Severe sepsis Current Visit: Yes Status: Acute (3) Bacteremia Current Visit: Yes Status: Acute (4) Chronic respiratory failure Current Visit: Yes Status: Chronic Qualifiers: Respiratory failure complication: hypoxia Qualified Code(s): J96.11 - Chronic respiratory failure with hypoxia (5) DVT prophylaxis Current Visit: Yes Status: Acute (6) Acute encephalopathy Current Visit: Yes Status: Resolved (7) History of heart valve replacement with mechanical valve Current Visit: Yes Status: Chronic History of Present Illness Consult date: 08/19/16 Requesting physician: Navi Sanz Reason for consult: other (abnormal vaginal bleeding) Chief complaint: abnormal lab value History of present illness: Ms. Lundy, a 61yo female, presented to the emergency department 2 days ago from [facility] with concern for hypercalcemia. She was subsequently admitted to the ICU with dx of severe sepsis, bacteremia, acute encephalopathy, ESRD, chronic respiratory failure, a. fib, chronic anticoagulation for hx aortic and mitral mechanical valve replacement. Reason for consult: abnormal vaginal bleeding. Patient has chronic tracheotomy in place. She is on the ventilator and unable to speak. She does not know sign language and prefers hand motions and others to read her lips. She appears to struggle with writing. Patient is . Patient reports a 10 year history of intermittent vaginal bleeding, not previously evaluated by STAFF ELECTRICAL ENGINEER. Patient had regular menses prior to her colectomy in December after which she was amenorrheic. Patient states she can feel the discharge when sitting up. Nursing describes a pad not fully soaked with brown blood without clots present. No history of cancer. No gynecologic surgical history. Most recent surgery was hemicolectomy with colostomy placement 2/2 bowel perforation. No unusual weakness, light headedness, paleness. No abdominal pain or pelvic pain. Past Med Surg Social Fam HX - Past Medical History Medical history: atrial fibrillation, COPD, coronary artery disease, diabetes, dialysis, GERD, hyperlipidemia, hypertension, peripheral artery disease, renal disease, thyroid disease, valvular heart disease Psychiatric history: depression - Past Surgical History Surgical History: colostomy, other (Tissue AVR/MVR 2013 with redo in 2016 at [facility] ), tracheostomy - Social History Smoking Status: Never smoker Smokeless Tobacco Status: No Alcohol use: none Drug use: none - Family History Mother History Unknown: Yes Father History Unknown: Yes Medications and Allergies Alprazolam [Xanax 0.25 MG Tablet] 0.25 mg PO Q6H PRN 08/16/16 [History] Atorvastatin Calcium [Lipitor] 20 mg PO HS 08/16/16 [History] Calcitonin-[place], Synthetic [Miacalcin] 400 unit SQ Q12H 08/16/16 [History] Cyanocobalamin (Vitamin B-12) [Vitamin B-12] 100 mcg PO DAILY 08/16/16 [History] Ertapenem Sodium [Invanz] 500 mg IV DAILY 08/16/16 [History] Famotidine [Heartburn Prevention] 20 mg PO Q12H 08/16/16 [History] Folic Acid 1 mg PO DAILY 08/16/16 [History] Ipratropium/Albuterol Neb [Duoneb] 3 ml IH Q4H PRN 08/16/16 [History] Ipratropium/Albuterol Neb [Duoneb] 3 ml IH Q6H 08/16/16 [History] Isosorbide DInitrate [Isosorbide Dinitrate] 5 mg PO Q12H 08/16/16 [History] Levothyroxine [Synthroid] 150 mcg PO QAM 08/16/16 [History] Magnesium Oxide [Mag-Ox] 400 mg PO Q12H 08/16/16 [History] Metoprolol [Lopressor] 25 mg PO DAILY 08/16/16 [History] Midodrine [ProAmatine] 15 mg PO DAILY 08/16/16 [History] Multivitamin [Multi-Day Vitamins] 1 each PO DAILY 08/16/16 [History] Ondansetron HCl [Zofran] 4 mg PO Q4H PRN 08/16/16 [History] Oxycodone HCl 10 mg PO Q3H PRN 08/16/16 [History] Sertraline [Zoloft] 75 mg PO DAILY 08/16/16 [History] Terbinafine HCl [Lamisil] 1 appl TP BID 08/16/16 [History] Zolpidem [Ambien] 5 mg PO HS 08/16/16 [History] Allergies codeine Allergy (Verified 08/16/16 19:07) Hives Hydromorphone Allergy (Verified 08/16/16 19:09) Hives Iodinated Contrast Media - Oral and Allergy (Verified 08/16/16 19:10) Hives Penicillins Allergy (Verified 08/16/16 19:09) Hives povidone-iodine Allergy (Verified 08/16/16 19:10) Hives Review of Systems All Systems: reviewed and no additional remarkable complaints except as stated Exam - Vital Signs Vital signs: Initial Vital Signs Temp Pulse Resp BP Pulse Ox 99.7 F H 114 22 79/53 94 L 08/16/16 18:00 08/16/16 18:00 08/16/16 18:00 08/16/16 18:00 08/16/16 18:00 - Constitutional Constitutional: well nourished, no acute distress, average body habitus, other ( deconditioned. Appears older than stated age.) - HEENT HEENT: Normocephaly, Mucus Membranes Dry - Neck Neck exam: normal inspection - Cardiovascular Cardiovascular exam: RRR, +S1, +S2 - Abdomen Abdomen: Present: bowel sounds normal, non tender. Absent: gravid, guarding noted, mass - Uterus Uterus exam: Present: normal size. Absent: enlarged, tender Results Result Diagrams: 08/19/16 10:03 08/19/16 10:03 Abnormal lab results RBC 3.18 M/mcL (3.82-4.97) L 08/19/16 10:03 Hgb 9.3 g/dL (11.5-15.4) L 08/19/16 10:03 Hct 29.9 % (35.3-44.9) L 08/19/16 10:03 MCHC 31.1 g/dL (31.6-35.5) L 08/19/16 10:03 RDW 16.3 % (11.5-14.5) H 08/19/16 10:03 PT 22.2 Seconds (9.4-12.1) H 08/17/16 00:11 APTT 78.2 Seconds (26.0-36.0) H 08/19/16 05:29 ABG pO2 74 mmHg (85-104) L 08/17/16 04:53 Sodium 131 mEq/L (136-145) L 08/19/16 10:03 Potassium 4.6 mEq/L (3.5-4.5) H 08/19/16 10:03 BUN 40 mg/dL (7-20) H D 08/19/16 10:03 Creatinine 5.19 mg/dL (0.57-1.11) H D 08/19/16 10:03 Est GFR ( Amer) 10 (> 60) L 08/19/16 10:03 Est GFR (Non-Af Amer) 8 (> 60) L 08/19/16 10:03 Glucose 129 mg/dL (70-99) H 08/19/16 10:03 POC Glucose 178 (58-89) H 08/18/16 23:40 Calcium 11.2 mg/dL (8.6-10.8) H D 08/19/16 10:03 Direct Bilirubin 1.2 mg/dL (0.0-0.5) H 08/17/16 00:11 Alkaline Phosphatase 200 Units/L (38-126) H 08/19/16 10:03 Troponin I 0.05 ng/mL (0-0.03) H* 08/17/16 08:05 B-Natriuretic Peptide 630 pg/mL (0-100) H 08/16/16 19:27 Albumin 2.0 g/dL (3.5-5.0) L 08/19/16 10:03 Globulin 4.5 g/dL (2.4-3.5) H 08/19/16 10:03 Albumin/Globulin Ratio 0.4 (1.1-2.2) L 08/19/16 10:03 All other labs normal. CT scan - abdomen: report reviewed CT scan - pelvis: report reviewed Consult Discharge Plan - Plan Referrals: NO,PCP [Primary Care Provider] -
[2016-08-19] MEDS: *HR* LORazepam 1 MG TABLET PO SCH ×2 (17:03→19:50)
[2016-08-19] MEDS ORDERED: Haloperidol Lactate 5 MG/ML VIAL IVP PRN (20:06)
[2016-08-19] MEDS ORDERED: Haloperidol Lactate 5 MG/ML VIAL ONE (20:12)
[2016-08-20] MEDS: *HR* LORazepam 2 MG/ML VIAL IVP PRN ×2 (03:42→19:44)
[2016-08-20 04:13] LABS: Basophils % 0.2 %; Eosinophils % 0.3 %; Hematocrit 29.6 % (35.3-44.9); Hemoglobin 8.8 g/dL (11.5-15.4); Immature Granulocytes % 1.5 % (0-4); Lymphocytes # 1.1 K/mcL (0.6-4.6); Lymphocytes % 18.9 %; Mean Corpuscular HGB Conc 29.7 g/dL (31.6-35.5); Mean Corpuscular Hemoglobin 27.8 pg (28.0-33.3); Mean Corpuscular Volume 93.4 fL (83.0-100.0); Mean Platelet Volume 10.4 fL (9.4-12.4); Monocytes # 0.6 K/mcL (0.0-1.3); Monocytes % 10.2 %; Neutrophils # 4.1 K/mcL (1.6-8.9); Platelet Count 203 K/mcL (140-400); Red Blood Count 3.17 M/mcL (3.82-4.97); Red Cell Distribution Width 16.3 % (11.5-14.5); Segmented Neutrophils % 68.9 %
[2016-08-20 04:25] LABS: Albumin 2.1 g/dL (3.5-5.0); Albumin/Globulin Ratio 0.5 (1.1-2.2); Calcium 10.5 mg/dL (8.6-10.8); Globulin 4.3 g/dL (2.4-3.5); INR 1.8; Potassium 4.1 mEq/L (3.5-4.5); Prothrombin Time 19.2 Seconds (9.4-12.1); Total Protein 6.4 g/dL (6.0-8.3)
[2016-08-20] MEDS: *HR* Heparin 5,000 UNIT/ML VIAL SQ SCH ×3 (05:55→20:17)
--- NOTE | 2016-08-20 08:22 | Nephrology Progress Note ---
Date of Encounter: 08/20/16 Time of Encounter: 08:20 - Assessment and Plan (1) ESRD (end stage renal disease) on dialysis Current Visit: Yes Status: Chronic If the patient's repeat blood cultures remain negative we can replace a new tunneled dialysis catheter tomorrow and then the patient can have her usual dialysis. If her calcium remains elevated we will dialyze her on a low calcium bath. (2) Bacteremia Current Visit: Yes Status: Acute (3) Chronic respiratory failure Current Visit: Yes Status: Chronic Qualifiers: Respiratory failure complication: hypoxia Qualified Code(s): J96.11 - Chronic respiratory failure with hypoxia (4) History of heart valve replacement with mechanical valve Current Visit: Yes Status: Chronic Subjective Principal diagnosis: Severe sepsis Interval history: Patient is alert and attempting to communicate. She had dialysis yesterday. Her tunneled dialysis catheters have been removed. She has mild hypercalcemia. The nurse reports that the patient is refusing various aspects of her care. Objective - Vital Signs Vital signs: Vital Signs Temp Pulse Resp BP Pulse Ox 08/20/16 07:35 15 105/54 94 L 08/20/16 07:00 69 15 101/58 96 08/20/16 06:04 15 100/64 96 08/20/16 06:00 64 14 100/64 96 08/20/16 05:00 67 12 98/59 96 08/20/16 04:53 97.2 F L 08/20/16 04:00 71 13 104/66 100 08/20/16 03:56 17 107/66 94 L 08/20/16 03:00 64 14 104/57 95 08/20/16 02:27 14 97/55 94 L 08/20/16 02:00 59 19 97/55 99 08/20/16 01:00 59 19 91/57 96 08/20/16 00:16 96.9 F L 08/20/16 00:14 21 86/53 955 H 08/20/16 00:00 59 13 86/53 97 08/19/16 23:00 59 20 80/43 96 08/19/16 22:00 59 14 86/62 97 08/19/16 21:00 59 16 79/50 98 08/19/16 20:00 98 20 146/96 97 08/19/16 19:57 25 134/107 94 L 08/19/16 19:00 64 21 93/58 96 08/19/16 18:10 14 94/77 99 08/19/16 18:00 72 13 88/49 100 08/19/16 17:00 74 14 94/77 99 08/19/16 16:32 24 97 08/19/16 16:00 70 24 91/69 97 08/19/16 15:00 79 18 90/60 97 08/19/16 14:24 97.6 F 18 106/63 08/19/16 14:00 73 16 100/58 98 08/19/16 13:45 104/61 08/19/16 13:30 98/75 08/19/16 13:15 97/61 08/19/16 13:00 77 16 102/63 94 L 08/19/16 12:45 107/68 08/19/16 12:30 104/80 08/19/16 12:15 105/66 08/19/16 12:04 97.6 F 08/19/16 12:00 66 17 101/67 95 08/19/16 11:45 103/67 08/19/16 11:30 100/67 08/19/16 11:15 113/63 08/19/16 11:00 97.6 F 60 14 113/63 98 08/19/16 10:45 101/61 08/19/16 10:30 96.2 F L 20 107/69 08/19/16 10:00 60 16 103/69 97 08/19/16 09:10 103/65 08/19/16 09:00 57 14 103/65 98 Intake and Output 08/19/16 08/20/16 08/20/16 23:59 07:59 15:59 Output Total 300 / 300 275 / 275 Balance -300 / -300 -275 / -275 Output: Stool 300 / 300 275 / 275 Other: Stool Color Brown Green Weight 94.302 kg Patient Weight 08/20/16 23:59 Weight 94.302 kg - General Appearance Exam: Patient is alert. She is attempting to communicate. She is in no acute distress. Lungs coarse breath sounds. Heart irregular rate and rhythm. Abdomen is benign. Colostomy is present. There is no peripheral edema. The tunneled dialysis catheters been removed. - Lab 08/20/16 03:53 08/20/16 03:53 Most recent lab results ABG pH 7.40 pH Units (7.32-7.45) 08/17/16 04:53 ABG pCO2 39 mmHg (35-45) 08/17/16 04:53 ABG pO2 74 mmHg (85-104) L 08/17/16 04:53 ABG HCO3 24.2 mEQ/L (21-27) 08/17/16 04:53 ABG O2 Saturation 95 % (95-98) 08/17/16 04:53 Calcium 10.5 mg/dL (8.6-10.8) 08/20/16 03:53 Phosphorus 2.6 mg/dL (2.3-4.7) 08/16/16 19:27 Magnesium 1.8 mg/dL (1.6-2.6) 08/17/16 02:14 - VTE Reasons for not Prescribing Prophylaxis: Not indicated-Anticoagulated or INR therapeutic Consult Discharge Plan - Plan Referrals: NO,PCP [Primary Care Provider] -
--- NOTE | 2016-08-20 08:32 | Pulmonology Progress Note ---
<Navi Sanz - Last Filed: 08/20/16 11:02> Date of Encounter: 08/20/16 Time of Encounter: 08:27 Assessment and Plan (1) Severe sepsis Current Visit: Yes Status: Acute 61-year-old female presented to ER with positive blood cultures from her ECF on August 13 which pain back positive for Proteus mirabilis and gram-positive cocci (obtained from tunneled PICC). She was started on Invanz and vancomycin at her ECF. On presentation patient was tachycardic and hypotensive, and confused. Patient was continued on vancomycin, started on meropenem and Flagyl. Severe sepsis only Patient is alert and oriented, tachycardia and hypotension has resolved. Patient refuses care including drawing peripheral blood cultures which are needed to identify if patient still has bacteremia and can have permacath placed for dialysis. -peripheral Blood cultures on 08/13 show P. mirabilis and blood cultures of tunneled PICC line show GPC, likely anarobe -Repeat peripheral blood cultures were taken in ER on admission which are negative preliminarily. -Sputum cultures are positive for gram negative radha. awaiting sensitivities -d/c vanc and meropenem and start unasyn. (2) Bacteremia Current Visit: Yes Status: Acute polymicrobia: peripheral Blood cultures on 08/13 show P. mirabilis and blood cultures of tunneled PICC line show GPC, likely anarobe may be 2nd to tunneled PICC, perma cath, pneumonia (gram - radha), CT abdomen shows evidence of possible diverticulitis, bladder wall thickening consistent with cystitis There is concern for endocarditis due to patient having history of mitral valve and aortic valve replacement. TTE was done showing EF of 70% however all 4 valves were not visualized due to patient being in afib. Study was inconclusive. perma cath, PICC line were removed but patient refused repeat peripheral blood cultures -I personally spoke to the patient and she does not want blood cultures to be taken -we may need to consult palliative for future goals of care if patient continues to refuse care. Tried to contact family but was not able to get a hold of anyone. -d/c vanc and meropenem and start unasyn. 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 Discussed with ID that we will only treat if active disease manifests. (4) Acute encephalopathy Current Visit: Yes Status: Resolved 2nd bactermia/sepsis Patient presented confused. She is currently awake alert and conversing. (5) ESRD (end stage renal disease) on dialysis Current Visit: Yes Status: Chronic hx of ESRD dialysis dependent. Will undergo dialysis today. tunneled dialysis catheter removed IF blood cultures are negative for 48 hours patient can have a needed dialysis catheter placed. -however patient refused to have blood cultures drawn. Nephrology on board. (6) Chronic respiratory failure Current Visit: Yes Status: Chronic Patient had a 76 day admission at [facility] following replacement of mitral valve and aortic valve with postoperative complications of respiratory failure, and prolonged use of mechanical ventilation where she ended up needing a tracheostomy. Currently patient is on CPAP. She is tolerating it well. This morning patient was again placed on CPAP and pressure support with goal of weaning off of ventilator. Qualifiers: Respiratory failure complication: hypoxia Qualified Code(s): J96.11 - Chronic respiratory failure with hypoxia (7) DVT prophylaxis Current Visit: Yes Status: Acute heparin SQ (8) History of heart valve replacement with mechanical valve Current Visit: Yes Status: Chronic As stated above patient had history of heart valve replacement including mitral valve and aortic valve in 2011 with tissue MVR and AVR replacement last year. She was discharged from [facility] on anticoagulation of aspirin and sb heparin. According to [facility] discharge note patient was not put on novel oral anticoagulation or warfarin because of complications of postoperative anemia. d/c heparin. continue home aspirin and heparin. hgb stable (9) Vaginal bleeding, abnormal Current Visit: Yes Status: Acute Patient had an episode of vaginal bleeding after admission. She states that this started 10 years ago when she was started on dialysis. She denies any history of vaginal, endometrial, ovarian cancer. She states she has had 10 pregnancies. She has not followed up with her DIVISIONAL HUMAN RESOURCES DIRECTOR since this bleeding was started. We will consult DIVISIONAL HUMAN RESOURCES DIRECTOR for further recommendations. -Transvaginal ultrasound shows mild endometrial thickening of 5mm. -if patient is refusing care she may not want anymore workup done for this. -DIVISIONAL HUMAN RESOURCES DIRECTOR on board. (10) Atrial fibrillation Current Visit: Yes Status: Acute Rate is controlled. s/p AVR and MVR at [facility] patient has had afib. She was d/c on aspirin and heparin as anticogulation Rhythm control with metorlol. Qualifiers: Atrial fibrillation type: chronic Qualified Code(s): I48.2 - Chronic atrial fibrillation (11) Counseling regarding goals of care Current Visit: Yes Status: Acute Patient is refusing care: trach care, bath, blood cultures. It will be difficult to treat her bacteremia and ESRD as we need negative blood cultures for 48 hours before another central venous access can be inserted. She has extensive PMH. Family was contacted by phone without success to update them on patient refusing medical care. We will try to contact again. Subjective Principal diagnosis: Severe sepsis Interval history: overnight patient refused care including suctioning, repeat peripheral blood cultures, bath, trach care, colostomy care. patient is difficult to communicate with due to her tracheostomy. she refuses to communicate by writing. Objective PUL Vital signs: Last Vital Signs Temp 97.2 F L 08/20/16 04:53 Pulse 69 08/20/16 07:00 Resp 15 08/20/16 07:35 BP 105/54 08/20/16 07:35 Pulse Ox 94 L 08/20/16 07:35 General appearance: no acute distress Eyes: nonicteric ENT: oropharynx moist Mallampati (class): 2 Neck: no lymphadenopathy Effort: normal (on CPAP weaning) Auscultation: bilateral: clear Cardiovascular: irregular rhythm (atrial fibrillation) Gastrointestinal: normoactive bowel sounds, soft, non-tender, other (colostomy outputting well) Integumentary: normal (large mid abdominal scar), decubitus ulcer (10 x 10 decubitus ulcer stable from yesterday.) Extremities: no cyanosis, no edema, no clubbing, pulses normal normal mental status anxious (Anxious refuses care ) Ventilator Settings Ventilator Settings: Ventilator Settings, Last 8 Hours Ventilator Mode CPAP Ventilator Mode CPAP Ventilator Mode CPAP Ventilator Mode CPAP Ventilator Mode VC+ Ventilator Mode VC+ Ventilator Mode VC+ Ventilator Mode VC+ Ventilator Tidal Volume 500 Setting Ventilator Tidal Volume 500 Setting Ventilator Tidal Volume 500 Setting Ventilator Tidal Volume 500 Setting Ventilator Respiratory Rate 12 Setting Ventilator Respiratory Rate 12 Setting Ventilator Respiratory Rate 12 Setting Ventilator Respiratory Rate 12 Setting Actual Respiratory Rate 16 Actual Respiratory Rate 15 Actual Respiratory Rate 12 Actual Respiratory Rate 18 Actual Respiratory Rate 14 Positive End Expiratory 5 Pressure Positive End Expiratory 5 Pressure Positive End Expiratory 5 Pressure Positive End Expiratory 5 Pressure Positive End Expiratory 5 Pressure Positive End Expiratory 5 Pressure Peak Inspiratory Airway 16 Pressure Peak Inspiratory Airway 15 Pressure Peak Inspiratory Airway 15 Pressure Peak Inspiratory Airway 15 Pressure Peak Inspiratory Airway 27 Pressure Peak Inspiratory Airway 30 Pressure Peak Inspiratory Airway 26 Pressure Peak Inspiratory Airway 25 Pressure Results - Laboratory Findings CBC and BMP: 08/20/16 03:53 08/20/16 03:53 ABG ABG pH 7.40 pH Units (7.32-7.45) 08/17/16 04:53 ABG pCO2 39 mmHg (35-45) 08/17/16 04:53 ABG pO2 74 mmHg (85-104) L 08/17/16 04:53 ABG O2 Saturation 95 % (95-98) 08/17/16 04:53 PT/INR, D-dimer PT 19.2 Seconds (9.4-12.1) H 08/20/16 03:53 Abnormal lab findings: Abnormal lab results RBC 3.17 M/mcL (3.82-4.97) L 08/20/16 03:53 Hgb 8.8 g/dL (11.5-15.4) L 08/20/16 03:53 Hct 29.6 % (35.3-44.9) L 08/20/16 03:53 MCH 27.8 pg (28.0-33.3) L 08/20/16 03:53 MCHC 29.7 g/dL (31.6-35.5) L 08/20/16 03:53 RDW 16.3 % (11.5-14.5) H 08/20/16 03:53 PT 19.2 Seconds (9.4-12.1) H 08/20/16 03:53 APTT 78.2 Seconds (26.0-36.0) H 08/19/16 05:29 ABG pO2 74 mmHg (85-104) L 08/17/16 04:53 BUN 25 mg/dL (7-20) H D 08/20/16 03:53 Creatinine 3.39 mg/dL (0.57-1.11) H 08/20/16 03:53 Est GFR ( Amer) 17 (> 60) L 08/20/16 03:53 Est GFR (Non-Af Amer) 14 (> 60) L 08/20/16 03:53 POC Glucose 125 (58-89) H 08/19/16 16:41 Direct Bilirubin 1.2 mg/dL (0.0-0.5) H 08/17/16 00:11 Alkaline Phosphatase 229 Units/L (38-126) H 08/20/16 03:53 Troponin I 0.05 ng/mL (0-0.03) H* 08/17/16 08:05 B-Natriuretic Peptide 630 pg/mL (0-100) H 08/16/16 19:27 Albumin 2.1 g/dL (3.5-5.0) L 08/20/16 03:53 Globulin 4.3 g/dL (2.4-3.5) H 08/20/16 03:53 Albumin/Globulin Ratio 0.5 (1.1-2.2) L 08/20/16 03:53 - Clinical Findings Intake & Output: Intake & Output 08/19/16 08/20/16 08/20/16 23:59 07:59 15:59 Output Total 300 / 300 275 / 275 Balance -300 / -300 -275 / -275 Weight 94.302 kg - VTE Reasons for not Prescribing Prophylaxis: Not indicated-Anticoagulated or INR therapeutic Consult Discharge Plan - Plan Referrals: NO,PCP [Primary Care Provider] - <Jonathon Villasenor - Last Filed: 08/20/16 12:38> Objective PUL Vital signs: Last Vital Signs Temp 96.9 F L 08/20/16 08:54 Pulse 75 08/20/16 09:00 Resp 14 08/20/16 10:56 BP 104/73 08/20/16 10:56 Pulse Ox 97 08/20/16 10:56 Ventilator Settings Ventilator Settings: Ventilator Settings, Last 8 Hours Ventilator Mode CPAP Ventilator Mode CPAP Ventilator Mode CPAP Ventilator Mode CPAP Ventilator Mode CPAP Ventilator Mode CPAP Ventilator Mode CPAP Ventilator Mode VC+ Ventilator Tidal Volume 500 Setting Ventilator Respiratory Rate 12 Setting Actual Respiratory Rate 17 Actual Respiratory Rate 16 Actual Respiratory Rate 15 Actual Respiratory Rate 12 Positive End Expiratory 5 Pressure Positive End Expiratory 5 Pressure Positive End Expiratory 5 Pressure Positive End Expiratory 5 Pressure Peak Inspiratory Airway 16 Pressure Peak Inspiratory Airway 15 Pressure Peak Inspiratory Airway 15 Pressure Peak Inspiratory Airway 15 Pressure Peak Inspiratory Airway 27 Pressure Results - Laboratory Findings CBC and BMP: 08/20/16 03:53 08/20/16 03:53 ABG ABG pH 7.40 pH Units (7.32-7.45) 08/17/16 04:53 ABG pCO2 39 mmHg (35-45) 08/17/16 04:53 ABG pO2 74 mmHg (85-104) L 08/17/16 04:53 ABG O2 Saturation 95 % (95-98) 08/17/16 04:53 PT/INR, D-dimer PT 19.2 Seconds (9.4-12.1) H 08/20/16 03:53 Abnormal lab findings: Abnormal lab results RBC 3.17 M/mcL (3.82-4.97) L 08/20/16 03:53 Hgb 8.8 g/dL (11.5-15.4) L 08/20/16 03:53 Hct 29.6 % (35.3-44.9) L 08/20/16 03:53 MCH 27.8 pg (28.0-33.3) L 08/20/16 03:53 MCHC 29.7 g/dL (31.6-35.5) L 08/20/16 03:53 RDW 16.3 % (11.5-14.5) H 08/20/16 03:53 PT 19.2 Seconds (9.4-12.1) H 08/20/16 03:53 APTT 78.2 Seconds (26.0-36.0) H 08/19/16 05:29 ABG pO2 74 mmHg (85-104) L 08/17/16 04:53 BUN 25 mg/dL (7-20) H D 08/20/16 03:53 Creatinine 3.39 mg/dL (0.57-1.11) H 08/20/16 03:53 Est GFR ( Amer) 17 (> 60) L 08/20/16 03:53 Est GFR (Non-Af Amer) 14 (> 60) L 08/20/16 03:53 POC Glucose 125 (58-89) H 08/19/16 16:41 Direct Bilirubin 1.2 mg/dL (0.0-0.5) H 08/17/16 00:11 Alkaline Phosphatase 229 Units/L (38-126) H 08/20/16 03:53 Troponin I 0.05 ng/mL (0-0.03) H* 08/17/16 08:05 B-Natriuretic Peptide 630 pg/mL (0-100) H 08/16/16 19:27 Albumin 2.1 g/dL (3.5-5.0) L 08/20/16 03:53 Globulin 4.3 g/dL (2.4-3.5) H 08/20/16 03:53 Albumin/Globulin Ratio 0.5 (1.1-2.2) L 08/20/16 03:53 Vancomycin Trough 24.5 mcg/mL (10-20) H* 08/20/16 03:54 - Microbiology Findings Microbiology Findings: Microbiology, Last 48 Hours 08/19/16 15:00 Catheter Tip Culture - Preliminary Intravenous or Arterial Cath No growth. - Clinical Findings Intake & Output: Intake & Output 08/19/16 08/20/16 08/20/16 23:59 07:59 15:59 Output Total 300 / 300 275 / 275 125 / 125 Balance -300 / -300 -275 / -275 -125 / -125 Weight 94.302 kg - Attending Attestation I examined this patient and my medical decision-making was reviewed with the ELECTRIC LOCOMOTIVE FIRER/FIREMAN/PA/Advanced Practice Nurse/Resident Physician. I agree with the documented findings, disposition and treatment plan as described except to the extent set forth below. Patient seen and examined. Labs, radiology, chart personally reviewed. 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 I feel she has depression, but difficult to communicate with her. She is not taking her anti-depressant. Pulmonary: Acceptable oxygenation and ventilation. Wean off to TM if possible to use PM valve, hopefully she will be able to communicate. Cardiovascular: stable GI: Nutrition per dietary and GI prophylaxis per routine Heme: DVT prophylaxis per routine ID: Continue antibiotics and plan to de-escalation. Discussed with ID and agree with plan of care. Renal; Nephrology follow up Endorcine: blood glucose is monitored Lines: all lines checked and no evidence of infections Skin: skin care to prevent pressure ulcers per nursing routine care We need to come to discuss plan of care and if patient continue to refuse care, will consider psych consult and palliative care due to her multiple medical problems.
[2016-08-20] MEDS: *HR* LORazepam 1 MG TABLET PO SCH (09:05)
--- NOTE | 2016-08-20 10:21 | Infectious Disease Progress No ---
Date of Encounter: 08/20/16 Time of Encounter: 10:18 - Assessment and Plan (1) Severe sepsis Current Visit: Yes Status: Acute The patient had three SIRS criteria plus encephalopathy on admission. She also had leukocytosis on labs drawn at the [facility]. Likely secondary to bacteremia. Improved. The patient has been afebrile x 24 hours. Tachycardia has resolved. WBC has normalized. Encephalopathy appears improved. Blood cultures drawn 08/13/16 at the [facility] were positive 1/2 sets for P. mirabilis (peripheral). Blood culture drawn from the patient's tunneled PICC line positive for GPC, likely anaerobe given the prolonged time it has taken to grow. Still awaiting final ID. Repeat blood cultures drawn 08/16/16 in the ED are NGTD (drawn peripherally). Order submitted for blood cultures to be drawn yesterday after line removal. Patient refused to allow staff to draw labs. (2) Bacteremia Current Visit: Yes Status: Acute Causative organism P. mirabilis and GPC (likely anaerobic). Source unclear --> pneumonia vs. tunneled PICC line or Permacath infection vs. other. Patient anuric. Possible GI or lung source. Blood cultures drawn 08/13/16 at the [facility] were positive 1/2 sets for P. mirabilis (drawn peripherally). Blood culture drawn from the tunneled PICC was positive for GPC, likely anaerobic given the prolonged time it has taken to grow. Still awaiting final ID. Repeat blood cultures (drawn peripherally) 08/16/16 are NGTD. No cultures were drawn from the tunneled PICC line in the ED. Received Invanz and Vancomycin in the ED (started on 08/15/16 per [facility] staff). Review of the records from [facility] reveals the tunneled PICC line and Permacath were placed at [facility] in April. PICC line and Perma-cath removed 08/19/16. Blood cultures were ordered to be drawn after lines were removed. Patient refused. Line tips were sent for culture--> pending. Avoid re-insertion of any central access (PICC, CVC, or perma-cath) until blood cultures are negative x 48 hours. Discontinue Meropenem. Start Unasyn 3 grams IV Q24H (dosed for HD). Give after HD on dialysis days. Will cover Proteus and anaerobic bacteria. Discontinue Vancomycin. Duration of treatment depends on the clinical picture./Monitor renal function and for drug toxicity and dose-adjust antibiotics. (3) Acute encephalopathy Current Visit: Yes Status: Resolved Etiology likely secondary to sepsis. Concern for possible underlying mental illness given the patient's abrupt change in her mental status over the last 24 hours. Unsure of the patient's baseline. Management per the primary team. 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 (6) ESRD (end stage renal disease) on dialysis Current Visit: Yes Status: Chronic Nephrology consulted and following. Perma-cath removed 08/19/16. (7) Chronic respiratory failure Current Visit: Yes Status: Chronic Status post tracheostomy in 2016. Continue vent support as outline by the primary team. 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 No evidence of active disease. Avoid treatment unless evidence of active disease manifests. - Subjective Interval history: Patient seen and examined. Overnight events noted. Discussed with nursing. Patient became very agitated, paranoid, and combative yesterday afternoon into the night. She refuses a physical exam this morning. Refused medications last night. Refuses to answer my questions this morning. Infect Dis PN-Objective Data - Labs CBC & Chem 7: 08/20/16 03:53 08/20/16 03:53 Labs: Laboratory Results - last 24 hr 08/19/16 08/19/16 08/19/16 04:24 07:17 10:03 WBC RBC Hgb Hct MCV MCH MCHC RDW Plt Count MPV Immature Gran % Seg Neutrophils % Lymphocytes % Monocytes % Eosinophils % Basophils % Neutrophils # Lymphocytes # Monocytes # Eosinophils # Basophils # PT INR Sodium 131 L Potassium 4.6 H Chloride 100 Carbon Dioxide 20 BUN 40 H D Creatinine 5.19 H D Est GFR ( Amer) 10 L Est GFR (Non-Af Amer) 8 L BUN/Creatinine Ratio 8 Glucose 129 H POC Glucose 141 H 137 H Calculated Osmolality 283 Calcium 11.2 H D Total Bilirubin 1.1 AST 22 ALT 13 Alkaline Phosphatase 200 H Serum Total Protein 6.5 Albumin 2.0 L Globulin 4.5 H Albumin/Globulin Ratio 0.4 L Vancomycin Trough 08/19/16 08/19/16 08/19/16 11:36 16:35 16:40 WBC RBC Hgb Hct MCV MCH MCHC RDW Plt Count MPV Immature Gran % Seg Neutrophils % Lymphocytes % Monocytes % Eosinophils % Basophils % Neutrophils # Lymphocytes # Monocytes # Eosinophils # Basophils # PT INR Sodium Potassium Chloride Carbon Dioxide BUN Creatinine Est GFR ( Amer) Est GFR (Non-Af Amer) BUN/Creatinine Ratio Glucose POC Glucose 114 H 114 H 114 H Calculated Osmolality Calcium Total Bilirubin AST ALT Alkaline Phosphatase Serum Total Protein Albumin Globulin Albumin/Globulin Ratio Vancomycin Trough 08/19/16 08/20/16 08/20/16 16:41 03:53 03:53 WBC 6.0 RBC 3.17 L Hgb 8.8 L Hct 29.6 L MCV 93.4 MCH 27.8 L MCHC 29.7 L RDW 16.3 H Plt Count 203 MPV 10.4 Immature Gran % 1.5 Seg Neutrophils % 68.9 Lymphocytes % 18.9 Monocytes % 10.2 Eosinophils % 0.3 Basophils % 0.2 Neutrophils # 4.1 Lymphocytes # 1.1 Monocytes # 0.6 Eosinophils # 0.0 Basophils # 0.0 PT INR Sodium 138 D Potassium 4.1 Chloride 104 Carbon Dioxide 25 BUN 25 H D Creatinine 3.39 H Est GFR ( Amer) 17 L Est GFR (Non-Af Amer) 14 L BUN/Creatinine Ratio 7 Glucose 75 POC Glucose 125 H Calculated Osmolality 289 Calcium 10.5 Total Bilirubin 1.0 AST 31 ALT 13 Alkaline Phosphatase 229 H Serum Total Protein 6.4 Albumin 2.1 L Globulin 4.3 H Albumin/Globulin Ratio 0.5 L Vancomycin Trough 08/20/16 08/20/16 03:53 03:54 WBC RBC Hgb Hct MCV MCH MCHC RDW Plt Count MPV Immature Gran % Seg Neutrophils % Lymphocytes % Monocytes % Eosinophils % Basophils % Neutrophils # Lymphocytes # Monocytes # Eosinophils # Basophils # PT 19.2 H INR 1.8 Sodium Potassium Chloride Carbon Dioxide BUN Creatinine Est GFR ( Amer) Est GFR (Non-Af Amer) BUN/Creatinine Ratio Glucose POC Glucose Calculated Osmolality Calcium Total Bilirubin AST ALT Alkaline Phosphatase Serum Total Protein Albumin Globulin Albumin/Globulin Ratio Vancomycin Trough 24.5 H* Cultures: Cultures 08/17/16 00:00 Sputum Culture - Final Sputum Acinetobacter haemolyt MDRO 08/16/16 19:27 Blood Culture - Preliminary Peripheral Venipuncture No growth. 08/16/16 20:18 Blood Culture - Preliminary Peripheral Venipuncture No growth. - Impressions Impressions Insertion Tunneled Catheter 08/19/16 00:00 IMPRESSION: Successful removal of two tunneled catheters. D/ /19/2016 16:11:24 Ruthann Boss MD / omi Interpreting Provider: Ruthann Boss MD Transvaginal US 08/19/16 14:25 IMPRESSION: Mild endometrial stripe thickening. Ovaries not seen Possible filling defects in the bladder. Correlate with urinalysis. D/ / Samir Marsh MD / Samir Marsh MD Interpreting Provider: Samir Marsh MD Exam - Constitutional Vitals: Temp Pulse Resp BP Pulse Ox 96.9 F L 75 14 104/73 96 08/20/16 08:54 08/20/16 09:00 08/20/16 09:00 08/20/16 09:00 08/20/16 09:00 General appearance: average body habitus, no acute distress, no cooperative - Head Head exam: Present: atraumatic, normal inspection, normocephalic - ENT ENT exam: Present: mucous membranes dry - Neck Additional comments: Tracheostomy midline with O2 via the vent. Dark green crusted drainage noted to the tracheostomy cannula. - Neurological Exam Neurological exam: Present: alert - Skin Skin exam: Present: dry, intact, normal color, warm - VTE Reasons for not Prescribing Prophylaxis: Not indicated-Anticoagulated or INR therapeutic Consult Discharge Plan - Plan Referrals: NO,PCP [Primary Care Provider] -
--- NOTE | 2016-08-20 11:57 | Event Note ---
<Navi Sanz - Last Filed: 08/20/16 11:47> Date of Encounter: 08/20/16 Time of Encounter: 11:47 Patient's spouse and daughter were called did not picker/puller the phone. Patients aunt xu was called. She stated that Patients daughter is POA and today she and the daughter will go to insurance underwriter to maker her 2nd POA. Aunt says they cannot come in til Friday. does not drive. For some reason it is not safe for daughter to drive alone for 3 hours. Aunt was explained the situation at hand that patient is refusing all medical care including dialysis. She also refused to get blood cultures redrawn which were necessary to determine if patient is bacteremic and if blood cultures were negative for 48hrs another dialysis catheter can be placed. Patient is full code. W/o dialysis patient may have electrolyte abnormalities and cardiac complications. I tried to discuss with the patient her code status. However, patient seems to be having visual hallucinations. Unsure if she can make her own decisions. <Jonathon Villasenor - Last Filed: 08/20/16 12:49> This is very difficult situation with patient been full code and she refuses care/treatment. Need family to help us to take care of patient. Will wait for the daughter.
[2016-08-20] MEDS: MetroNIDAZOLE 500 MG/100 ML 500 MG/100 ML BAG IVPB SCH (17:31)
[2016-08-20] MEDS: Chlorhexidine Rinse 15 ML MOUTHWASH MM SCH (20:17)
[2016-08-21] MEDS ORDERED: *HR* Dextrose 50 % in Water (Syg) 50 ML SYRINGE ONE (00:13)
[2016-08-21] MEDS: MetroNIDAZOLE 500 MG/100 ML 500 MG/100 ML BAG IVPB SCH ×4 (00:18→23:43)
[2016-08-21] MEDS ORDERED: Dextrose Gel 15 GM PO PRN ×2 (00:47)
[2016-08-21] MEDS: *HR* Dextrose 50 % in Water (Syg) 50 ML SYRINGE IVP PRN ×2 (04:07→07:44)
[2016-08-21 04:53] LABS: Basophils % 0.2 %; Eosinophils # 0.2 K/mcL (0.0-0.6); Eosinophils % 2.9 %; Hematocrit 27.9 % (35.3-44.9); Hemoglobin 8.3 g/dL (11.5-15.4); Immature Granulocytes % 0.9 % (0-4); Lymphocytes # 1.1 K/mcL (0.6-4.6); Lymphocytes % 18.8 %; Mean Corpuscular HGB Conc 29.7 g/dL (31.6-35.5); Mean Corpuscular Hemoglobin 28.3 pg (28.0-33.3); Mean Corpuscular Volume 95.2 fL (83.0-100.0); Mean Platelet Volume 10.3 fL (9.4-12.4); Monocytes # 0.4 K/mcL (0.0-1.3); Monocytes % 7.9 %; Neutrophils # 3.9 K/mcL (1.6-8.9); Platelet Count 185 K/mcL (140-400); Red Blood Count 2.93 M/mcL (3.82-4.97); Red Cell Distribution Width 16.4 % (11.5-14.5); Segmented Neutrophils % 69.3 %
[2016-08-21 04:55] LABS: INR 1.8; Prothrombin Time 19.5 Seconds (9.4-12.1)
[2016-08-21 05:06] LABS: Calcium 10.6 mg/dL (8.6-10.8); Potassium 3.6 mEq/L (3.5-4.5)
[2016-08-21] MEDS: *HR* Heparin 5,000 UNIT/ML VIAL SQ SCH ×3 (05:55→23:43)
[2016-08-21] MEDS: Chlorhexidine Rinse 15 ML MOUTHWASH MM SCH (07:46)
[2016-08-21] MEDS: Pantoprazole 40 MG VIAL IVP SCH (07:46)
--- NOTE | 2016-08-21 08:47 | Nephrology Progress Note ---
Date of Encounter: 08/21/16 Time of Encounter: 08:45 - Assessment and Plan (1) ESRD (end stage renal disease) on dialysis Current Visit: Yes Status: Chronic The patient's blood cultures from August 16 remain negative. Catheter tip cultures are negative. Therefore we will request a consultation from interventional radiology to place a new tunneled dialysis catheter. Following that patient will have her usual dialysis. (2) Bacteremia Current Visit: Yes Status: Acute (3) Chronic respiratory failure Current Visit: Yes Status: Chronic Qualifiers: Respiratory failure complication: hypoxia Qualified Code(s): J96.11 - Chronic respiratory failure with hypoxia (4) History of heart valve replacement with mechanical valve Current Visit: Yes Status: Chronic Subjective Principal diagnosis: Severe sepsis Interval history: Patient appears to be resting comfortably. She stable on the ventilator. She indicates no complaints. Blood cultures from August 16 remain negative. Catheter tip cultures are negative. Objective - Vital Signs Vital signs: Vital Signs Temp Pulse Resp BP Pulse Ox 08/21/16 07:48 14 88/53 95 08/21/16 07:26 98.9 F 08/21/16 06:20 14 93/53 95 08/21/16 06:00 74 14 93/53 95 08/21/16 05:00 75 15 83/50 95 08/21/16 04:27 15 95 08/21/16 04:23 99.7 F H 08/21/16 04:15 78 13 97/57 96 08/21/16 03:00 68 12 94/50 96 08/21/16 02:15 12 80/47 97 08/21/16 02:00 59 12 80/47 96 08/21/16 01:00 79 12 95/64 95 08/21/16 00:22 14 93/71 96 08/21/16 00:15 78 18 93/71 97 08/21/16 00:13 98.9 F 08/20/16 23:00 79 14 93/59 96 08/20/16 22:28 25 100/57 96 08/20/16 22:00 78 12 100/57 98 08/20/16 21:08 81 12 87/54 96 08/20/16 20:11 18 91/68 97 08/20/16 20:00 97.7 F 112 20 91/68 97 08/20/16 19:00 98 18 116/64 08/20/16 18:29 18 103/60 97 08/20/16 18:00 89 16 116/64 08/20/16 17:00 90 18 103/60 96 08/20/16 16:03 16 109/66 96 08/20/16 16:00 75 16 101/56 100 08/20/16 15:00 76 16 91/65 96 08/20/16 14:00 76 16 100/53 94 L 08/20/16 13:00 78 16 98/59 96 08/20/16 12:00 96.8 F L 73 16 94/76 96 08/20/16 10:56 14 104/73 97 08/20/16 09:00 75 14 104/73 96 08/20/16 08:54 96.9 F L Intake and Output 08/20/16 08/21/16 08/21/16 23:59 07:59 15:59 Intake Total 100 / 100 100 / 100 Output Total 90 / 90 100 / 100 Balance 10 / 10 0 / 0 Intake: IV Fluids 100 / 100 100 / 100 Flagyl 500 MG/100 ML 500 100 / 100 100 / 100 mg In 100 ml @ 100 mls/hr IVPB Q8HR [facility] Rx#: [id number] Oral 0 / 0 Output: Stool 90 / 90 50 / 50 Gastric Drainage 50 / 50 Other: Stool Color Green Weight 93.531 kg Blood Glucose* 66 50 Patient Weight 08/21/16 23:59 Weight 93.531 kg - General Appearance Exam: Patient is resting comfortably. She is in no acute distress. Lung sounds otherwise clear. Heart irregular rate and rhythm consistent with atrial fibrillation. Abdomen is benign. A colostomy is present. There is no lower extremity swelling. - Lab 08/21/16 04:36 08/21/16 04:36 Most recent lab results ABG pH 7.40 pH Units (7.32-7.45) 08/17/16 04:53 ABG pCO2 39 mmHg (35-45) 08/17/16 04:53 ABG pO2 74 mmHg (85-104) L 08/17/16 04:53 ABG HCO3 24.2 mEQ/L (21-27) 08/17/16 04:53 ABG O2 Saturation 95 % (95-98) 08/17/16 04:53 Calcium 10.6 mg/dL (8.6-10.8) 08/21/16 04:36 Phosphorus 2.6 mg/dL (2.3-4.7) 08/16/16 19:27 Magnesium 1.8 mg/dL (1.6-2.6) 08/17/16 02:14 - VTE Reasons for not Prescribing Prophylaxis: Not indicated-Anticoagulated or INR therapeutic Consult Discharge Plan - Plan Referrals: NO,PCP [Primary Care Provider] -
[2016-08-21] MEDS ORDERED: 0.9 % Sodium Chloride 2,000 ML ONE (09:27)
--- NOTE | 2016-08-21 10:42 | Pulmonology Progress Note ---
<Navi Sanz - Last Filed: 08/21/16 10:37> Date of Encounter: 08/21/16 Time of Encounter: 10:38 Assessment and Plan (1) Severe sepsis Current Visit: Yes Status: Resolved 61-year-old female presented to ER with positive blood cultures from her ECF on August 13 which pain back positive for Proteus mirabilis and gram-positive cocci (obtained from tunneled PICC). She was started on Invanz and vancomycin at her ECF. On presentation patient was tachycardic and hypotensive, and confused. Patient was continued on vancomycin, started on meropenem and Flagyl. Severe sepsis only Patient is alert and oriented, tachycardia and hypotension has resolved. -peripheral Blood cultures on 08/13 show P. mirabilis and blood cultures of tunneled PICC line show GPC, likely anarobe -Repeat peripheral blood cultures were taken in ER on admission which are for the last 48 hours. Culture of catheter tips are preliminary normal. -Sputum cultures are positive for [id number] acetobacter -Continue metronidazole and ceftriaxone (2) Bacteremia Current Visit: Yes Status: Acute polymicrobia: peripheral Blood cultures on 08/13 show P. mirabilis and blood cultures of tunneled PICC line show GPC, likely anarobe may be 2nd to tunneled PICC, perma cath, pneumonia (gram - radha), CT abdomen shows evidence of possible diverticulitis, bladder wall thickening consistent with cystitis There is concern for endocarditis due to patient having history of mitral valve and aortic valve replacement. TTE was done showing EF of 70% however all 4 valves were not visualized due to patient being in afib. Study was inconclusive. perma cath, PICC line were removed -48 hour peripheral blood cultures negative. Catheter tip cultures negative. -continue ceftriaxone and flagyl -will have dialysis catheter placed by IR today and possible dialysis tomorrow. (3) Counseling regarding goals of care Current Visit: Yes Status: Acute Patient is refusing care: trach care, bath, blood cultures. Patient's daughter is power of deputy prosecuting attorney. Patient's aunt is obtaining secondary power of deputy prosecuting attorney status. does not want to be any part of patient's healthcare. Family will come visit on Friday. Patient is alert and awake and oriented 3. She refuses care but it is not changing her CODE STATUS. She remains full code. Patient tried to pull out her tracheostomy last night. Patient states that she sees dying people in the room. We will obtain a psychiatry consult to evaluate for capacity. We will also consult palliative for further recommendations. 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 Discussed with ID that we will only treat if active disease manifests. (5) Acute encephalopathy Current Visit: Yes Status: Resolved 2nd bactermia/sepsis Patient presented confused. She is currently awake alert and conversing. (6) ESRD (end stage renal disease) on dialysis Current Visit: Yes Status: Chronic hx of ESRD dialysis dependent. Will have new dialysis catheter placed and undergo dialysis. However there is a high possibility patient will refuse dialysis. (7) Chronic respiratory failure Current Visit: Yes Status: Chronic Patient had a 76 day admission at [facility] following replacement of mitral valve and aortic valve with postoperative complications of respiratory failure, and prolonged use of mechanical ventilation where she ended up needing a tracheostomy. Currently patient is on CPAP. She is tolerating it well. Patient on CPAP and pressure support with goal of weaning off of ventilator. However patient refuses to be weaned off ventilator. Patient cannot pull out her tracheostomy yesterday. Qualifiers: Respiratory failure complication: hypoxia Qualified Code(s): J96.11 - Chronic respiratory failure with hypoxia (8) DVT prophylaxis Current Visit: Yes Status: Acute heparin SQ (9) History of heart valve replacement with mechanical valve Current Visit: Yes Status: Chronic As stated above patient had history of heart valve replacement including mitral valve and aortic valve in 2011 with tissue MVR and AVR replacement last year. She was discharged from [facility] on anticoagulation of aspirin and sb heparin. According to [facility] discharge note patient was not put on novel oral anticoagulation or warfarin because of complications of postoperative anemia. d/c heparin. continue home aspirin and heparin. hgb stable (10) Vaginal bleeding, abnormal Current Visit: Yes Status: Acute Patient had an episode of vaginal bleeding after admission. She states that this started 10 years ago when she was started on dialysis. She denies any history of vaginal, endometrial, ovarian cancer. She states she has had 10 pregnancies. She has not followed up with her SALES SUPPORT COORDINATOR since this bleeding was started. We will consult SALES SUPPORT COORDINATOR for further recommendations. -Transvaginal ultrasound shows mild endometrial thickening of 5mm. -if patient is refusing care she may not want anymore workup done for this. -SALES SUPPORT COORDINATOR on board. (11) Atrial fibrillation Current Visit: Yes Status: Acute Rate is controlled. s/p AVR and MVR at [facility] patient has had afib. She was d/c on aspirin and heparin as anticogulation Rhythm control with metorlol. Qualifiers: Atrial fibrillation type: chronic Qualified Code(s): I48.2 - Chronic atrial fibrillation Subjective Principal diagnosis: Severe sepsis Interval history: Patient's family was here last night and patient told family that she is ready to . She continues to refuse her diet and medications. Objective PUL Vital signs: Last Vital Signs Temp 98.9 F 08/21/16 08:30 Pulse 59 08/21/16 10:00 Resp 13 08/21/16 10:00 BP 104/59 08/21/16 10:00 Pulse Ox 97 08/21/16 10:00 General appearance: no acute distress, asleep Eyes: nonicteric Effort: normal, other (Tracheostomy) Auscultation: bilateral: clear Cardiovascular: irregular rhythm (Atrial fibrillation) Gastrointestinal: normoactive bowel sounds, soft, non-tender, other (Colostomy outputting well) Integumentary: normal Extremities: no cyanosis, no edema, no clubbing Musculoskeletal: no deformities normal mental status (Patient alert oriented 3) other (Patient states that there are people behind her that are dying) Ventilator Settings Ventilator Settings: Ventilator Settings, Last 8 Hours Ventilator Mode VC+ Ventilator Mode VC+ Ventilator Mode VC+ Ventilator Mode VC+ Ventilator Mode VC+ Ventilator Mode VC+ Ventilator Mode VC+ Ventilator Mode VC+ Ventilator Mode VC+ Ventilator Mode VC+ Ventilator Mode VC+ Ventilator Tidal Volume 500 Setting Ventilator Tidal Volume 500 Setting Ventilator Tidal Volume 500 Setting Ventilator Tidal Volume 500 Setting Ventilator Tidal Volume 500 Setting Ventilator Tidal Volume 500 Setting Ventilator Tidal Volume 500 Setting Ventilator Tidal Volume 500 Setting Ventilator Tidal Volume 500 Setting Ventilator Tidal Volume 500 Setting Ventilator Tidal Volume 500 Setting Ventilator Respiratory Rate 12 Setting Ventilator Respiratory Rate 12 Setting Ventilator Respiratory Rate 12 Setting Ventilator Respiratory Rate 12 Setting Ventilator Respiratory Rate 12 Setting Ventilator Respiratory Rate 12 Setting Ventilator Respiratory Rate 12 Setting Ventilator Respiratory Rate 12 Setting Ventilator Respiratory Rate 12 Setting Ventilator Respiratory Rate 12 Setting Ventilator Respiratory Rate 12 Setting Actual Respiratory Rate 13 Actual Respiratory Rate 13 Actual Respiratory Rate 13 Actual Respiratory Rate 18 Actual Respiratory Rate 13 Actual Respiratory Rate 14 Actual Respiratory Rate 15 Positive End Expiratory 5 Pressure Positive End Expiratory 5 Pressure Positive End Expiratory 5 Pressure Positive End Expiratory 5 Pressure Positive End Expiratory 5 Pressure Positive End Expiratory 5 Pressure Positive End Expiratory 5 Pressure Positive End Expiratory 5 Pressure Positive End Expiratory 5 Pressure Positive End Expiratory 5 Pressure Positive End Expiratory 5 Pressure Peak Inspiratory Airway 41 Pressure Peak Inspiratory Airway 41 Pressure Peak Inspiratory Airway 41 Pressure Peak Inspiratory Airway 41 Pressure Peak Inspiratory Airway 41 Pressure Peak Inspiratory Airway 37 Pressure Peak Inspiratory Airway 31 Pressure Results - Laboratory Findings CBC and BMP: 08/21/16 04:36 08/21/16 04:36 ABG ABG pH 7.40 pH Units (7.32-7.45) 08/17/16 04:53 ABG pCO2 39 mmHg (35-45) 08/17/16 04:53 ABG pO2 74 mmHg (85-104) L 08/17/16 04:53 ABG O2 Saturation 95 % (95-98) 08/17/16 04:53 PT/INR, D-dimer PT 19.5 Seconds (9.4-12.1) H 08/21/16 04:36 Abnormal lab findings: Abnormal lab results RBC 2.93 M/mcL (3.82-4.97) L 08/21/16 04:36 Hgb 8.3 g/dL (11.5-15.4) L 08/21/16 04:36 Hct 27.9 % (35.3-44.9) L 08/21/16 04:36 MCHC 29.7 g/dL (31.6-35.5) L 08/21/16 04:36 RDW 16.4 % (11.5-14.5) H 08/21/16 04:36 PT 19.5 Seconds (9.4-12.1) H 08/21/16 04:36 APTT 78.2 Seconds (26.0-36.0) H 08/19/16 05:29 ABG pO2 74 mmHg (85-104) L 08/17/16 04:53 BUN 30 mg/dL (7-20) H 08/21/16 04:36 Creatinine 4.38 mg/dL (0.57-1.11) H 08/21/16 04:36 Est GFR ( Amer) 13 (> 60) L 08/21/16 04:36 Est GFR (Non-Af Amer) 10 (> 60) L 08/21/16 04:36 Glucose 114 mg/dL (70-99) H 08/21/16 04:36 POC Glucose 52 (58-89) L 08/21/16 00:11 Direct Bilirubin 1.2 mg/dL (0.0-0.5) H 08/17/16 00:11 Alkaline Phosphatase 229 Units/L (38-126) H 08/20/16 03:53 Troponin I 0.05 ng/mL (0-0.03) H* 08/17/16 08:05 B-Natriuretic Peptide 630 pg/mL (0-100) H 08/16/16 19:27 Albumin 2.1 g/dL (3.5-5.0) L 08/20/16 03:53 Globulin 4.3 g/dL (2.4-3.5) H 08/20/16 03:53 Albumin/Globulin Ratio 0.5 (1.1-2.2) L 08/20/16 03:53 Vancomycin Trough 24.5 mcg/mL (10-20) H* 08/20/16 03:54 - Microbiology Findings Microbiology Findings: Microbiology, Last 48 Hours 08/19/16 15:00 Catheter Tip Culture - Preliminary Intravenous or Arterial Cath No growth. 08/19/16 15:00 Catheter Tip Culture - Preliminary Intravenous or Arterial Cath No growth. - Clinical Findings Intake & Output: Intake & Output 08/20/16 08/21/16 08/21/16 23:59 07:59 15:59 Intake Total 100 / 100 100 / 100 0 / 0 Output Total 90 / 90 100 / 100 Balance 10 / 10 0 / 0 0 / 0 Weight 93.531 kg - VTE Reasons for not Prescribing Prophylaxis: Not indicated-Anticoagulated or INR therapeutic Consult Discharge Plan - Plan Referrals: NO,PCP [Primary Care Provider] - <Jonathon Villasenor - Last Filed: 08/21/16 16:51> Objective PUL Vital signs: Last Vital Signs Temp 97.3 F L 08/21/16 15:15 Pulse 71 08/21/16 16:19 Resp 16 08/21/16 16:19 BP 114/71 08/21/16 16:30 Pulse Ox 98 08/21/16 16:19 Ventilator Settings Ventilator Settings: Ventilator Settings, Last 8 Hours Ventilator Mode A/C Ventilator Mode VC+ Ventilator Mode VC+ Ventilator Mode VC+ Ventilator Mode VC+ Ventilator Mode VC+ Ventilator Mode VC+ Ventilator Mode VC+ Ventilator Mode VC+ Ventilator Tidal Volume 500 Setting Ventilator Tidal Volume 500 Setting Ventilator Tidal Volume 500 Setting Ventilator Tidal Volume 500 Setting Ventilator Tidal Volume 500 Setting Ventilator Tidal Volume 500 Setting Ventilator Tidal Volume 500 Setting Ventilator Tidal Volume 500 Setting Ventilator Respiratory Rate 12 Setting Ventilator Respiratory Rate 12 Setting Ventilator Respiratory Rate 12 Setting Ventilator Respiratory Rate 12 Setting Ventilator Respiratory Rate 12 Setting Ventilator Respiratory Rate 12 Setting Ventilator Respiratory Rate 12 Setting Ventilator Respiratory Rate 12 Setting Ventilator Respiratory Rate 12 Setting Actual Respiratory Rate 16 Actual Respiratory Rate 13 Actual Respiratory Rate 13 Actual Respiratory Rate 13 Actual Respiratory Rate 13 Actual Respiratory Rate 13 Actual Respiratory Rate 13 Actual Respiratory Rate 13 Actual Respiratory Rate 13 Positive End Expiratory 5 Pressure Positive End Expiratory 5 Pressure Positive End Expiratory 5 Pressure Positive End Expiratory 5 Pressure Positive End Expiratory 5 Pressure Positive End Expiratory 5 Pressure Positive End Expiratory 5 Pressure Positive End Expiratory 5 Pressure Positive End Expiratory 5 Pressure Peak Inspiratory Airway 41 Pressure Peak Inspiratory Airway 41 Pressure Peak Inspiratory Airway 41 Pressure Peak Inspiratory Airway 41 Pressure Peak Inspiratory Airway 41 Pressure Peak Inspiratory Airway 41 Pressure Peak Inspiratory Airway 41 Pressure Peak Inspiratory Airway 41 Pressure Results - Laboratory Findings CBC and BMP: 08/21/16 11:10 08/21/16 11:10 ABG ABG pH 7.40 pH Units (7.32-7.45) 08/17/16 04:53 ABG pCO2 39 mmHg (35-45) 08/17/16 04:53 ABG pO2 74 mmHg (85-104) L 08/17/16 04:53 ABG O2 Saturation 95 % (95-98) 08/17/16 04:53 PT/INR, D-dimer PT 19.5 Seconds (9.4-12.1) H 08/21/16 04:36 Abnormal lab findings: Abnormal lab results RBC 3.14 M/mcL (3.82-4.97) L 08/21/16 11:10 Hgb 8.9 g/dL (11.5-15.4) L 08/21/16 11:10 Hct 29.4 % (35.3-44.9) L 08/21/16 11:10 MCHC 30.3 g/dL (31.6-35.5) L 08/21/16 11:10 RDW 16.4 % (11.5-14.5) H 08/21/16 11:10 PT 19.5 Seconds (9.4-12.1) H 08/21/16 04:36 APTT 78.2 Seconds (26.0-36.0) H 08/19/16 05:29 ABG pO2 74 mmHg (85-104) L 08/17/16 04:53 BUN 32 mg/dL (7-20) H 08/21/16 11:10 Creatinine 4.53 mg/dL (0.57-1.11) H 08/21/16 11:10 Est GFR ( Amer) 12 (> 60) L 08/21/16 11:10 Est GFR (Non-Af Amer) 10 (> 60) L 08/21/16 11:10 Glucose 58 mg/dL (70-99) L 08/21/16 11:10 Direct Bilirubin 1.2 mg/dL (0.0-0.5) H 08/17/16 00:11 Alkaline Phosphatase 229 Units/L (38-126) H 08/20/16 03:53 Troponin I 0.05 ng/mL (0-0.03) H* 08/17/16 08:05 B-Natriuretic Peptide 630 pg/mL (0-100) H 08/16/16 19:27 Albumin 2.1 g/dL (3.5-5.0) L 08/20/16 03:53 Globulin 4.3 g/dL (2.4-3.5) H 08/20/16 03:53 Albumin/Globulin Ratio 0.5 (1.1-2.2) L 08/20/16 03:53 Vancomycin Trough 24.5 mcg/mL (10-20) H* 08/20/16 03:54 - Microbiology Findings Microbiology Findings: Microbiology, Last 48 Hours 08/19/16 15:00 Catheter Tip Culture - Preliminary Intravenous or Arterial Cath No growth. 08/19/16 15:00 Catheter Tip Culture - Preliminary Intravenous or Arterial Cath No growth. - Clinical Findings Intake & Output: Intake & Output 08/21/16 08/21/16 08/21/16 07:59 15:59 23:59 Intake Total 100 / 100 700 / 700 120 / 120 Output Total 100 / 100 Balance 0 / 0 700 / 700 120 / 120 Weight 93.531 kg 93.531 kg - Attending Attestation I examined this patient and my medical decision-making was reviewed with the INTERNAL MEDICINE NURSE PRACTITIONER/PA/Advanced Practice Nurse/Resident Physician. I agree with the documented findings, disposition and treatment plan as described except to the extent set forth below. Patient seen and examined. Labs, radiology, chart personally reviewed. 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 Psych consult to help management and decision capacity. Pulmonary: Acceptable oxygenation and ventilation. Trial of SBT again tomorrow. Cardiovascular: stable GI: Nutrition per dietary and GI prophylaxis per routine Heme: DVT prophylaxis per routine ID: Continue antibiotics and plan to de-escalation Renal; HD Endorcine: blood glucose is monitored Lines: all lines checked and no evidence of infections Skin: skin care to prevent pressure ulcers per nursing routine care If patient tolerate SBT and transition to TM, will transfer patient to 2 [address]
--- NOTE | 2016-08-21 11:00 | Infectious Disease Progress No ---
Date of Encounter: 08/21/16 Time of Encounter: 10:57 - Assessment and Plan (1) Severe sepsis Current Visit: Yes Status: Resolved The patient had three SIRS criteria plus encephalopathy on admission. She also had leukocytosis on labs drawn at the [facility]. Likely secondary to bacteremia. Improved. The patient has been afebrile x 48 hours. Tachycardia has resolved. WBC has normalized. Encephalopathy appears improved. Blood cultures drawn 08/13/16 at the [facility] were positive 1/2 sets for P. mirabilis (peripheral). Blood culture drawn from the patient's tunneled PICC line positive for GPC, likely anaerobe given the prolonged time it has taken to grow. Still awaiting final ID. Repeat blood cultures drawn 08/16/16 in the ED are NGTD (drawn peripherally). Order submitted for blood cultures to be drawn 08/19/16 after line removal. Patient refused to allow staff to draw labs. She states she is agreeable to having labs drawn at this time. Lab notified and orders entered. (2) Bacteremia Current Visit: Yes Status: Acute Causative organism P. mirabilis and GPC (likely anaerobic). Source unclear --> pneumonia vs. tunneled PICC line or Permacath infection vs. other. Patient anuric. Possible GI or lung source. Blood cultures drawn 08/13/16 at the [facility] were positive 1/2 sets for P. mirabilis (drawn peripherally). Blood culture drawn from the tunneled PICC was positive for GPC, likely anaerobic given the prolonged time it has taken to grow. Still awaiting final ID. Repeat blood cultures (drawn peripherally) 08/16/16 are NGTD. No cultures were drawn from the tunneled PICC line in the ED. Received Invanz and Vancomycin in the ED (started on 08/15/16 per [facility] staff). Review of the records from [facility] reveals the tunneled PICC line and Permacath were placed at [facility] in April. PICC line and Perma-cath removed 08/19/16. Blood cultures were ordered to be drawn after lines were removed. Patient refused. Line tips were sent for culture and are negative. Avoid re-insertion of any central access (PICC, CVC, or perma-cath) until blood cultures are negative x 48 hours. Continue Unasyn 3 grams IV Q24H (dosed for HD). Give after HD on dialysis days. Will cover Proteus and anaerobic bacteria. Duration of treatment depends on the clinical picture. Monitor renal function and for drug toxicity and dose-adjust antibiotics. (3) Acute encephalopathy Current Visit: Yes Status: Resolved Etiology likely secondary to sepsis. Concern for possible underlying mental illness given the patient's abrupt change in her mental status over the last 24 hours. She is agreeable to having labs drawn this morning and was compliant with a physical exam. Unsure of the patient's baseline. Management per the primary team. 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 (6) ESRD (end stage renal disease) on dialysis Current Visit: Yes Status: Chronic Nephrology consulted and following. Perma-cath removed 08/19/16. (7) Chronic respiratory failure Current Visit: Yes Status: Chronic Status post tracheostomy in 2016. Continue vent support as outline by the primary team. 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 No evidence of active disease. Avoid treatment unless evidence of active disease manifests. - Subjective Interval history: Patient seen and examined. Overnight events noted. Discussed with nursing. Patient continues to refuse some aspects of care, but she is compliant with a physical exam this morning and agrees to have labs done. She also states she agrees to having dialysis catheter placed this morning. She denies fevers or chills. Denies chest pain or shortness of breath. She does report a productive cough. Denies nausea, vomiting, or abdominal pain. States she did eat breakfast this morning. Denies pain at this time. Infect Dis PN-Objective Data - Labs CBC & Chem 7: 08/21/16 04:36 08/21/16 04:36 Labs: Laboratory Results - last 24 hr 08/20/16 08/20/16 08/20/16 07:56 11:31 19:49 WBC RBC Hgb Hct MCV MCH MCHC RDW Plt Count MPV Immature Gran % Seg Neutrophils % Lymphocytes % Monocytes % Eosinophils % Basophils % Neutrophils # Lymphocytes # Monocytes # Eosinophils # Basophils # PT INR Sodium Potassium Chloride Carbon Dioxide BUN Creatinine Est GFR ( Amer) Est GFR (Non-Af Amer) BUN/Creatinine Ratio Glucose POC Glucose 67 61 66 Calculated Osmolality Calcium 08/21/16 08/21/16 08/21/16 00:11 04:36 04:36 WBC 5.6 RBC 2.93 L Hgb 8.3 L Hct 27.9 L MCV 95.2 MCH 28.3 MCHC 29.7 L RDW 16.4 H Plt Count 185 MPV 10.3 Immature Gran % 0.9 Seg Neutrophils % 69.3 Lymphocytes % 18.8 Monocytes % 7.9 Eosinophils % 2.9 Basophils % 0.2 Neutrophils # 3.9 Lymphocytes # 1.1 Monocytes # 0.4 Eosinophils # 0.2 Basophils # 0.0 PT 19.5 H INR 1.8 Sodium Potassium Chloride Carbon Dioxide BUN Creatinine Est GFR ( Amer) Est GFR (Non-Af Amer) BUN/Creatinine Ratio Glucose POC Glucose 52 L Calculated Osmolality Calcium 08/21/16 04:36 WBC RBC Hgb Hct MCV MCH MCHC RDW Plt Count MPV Immature Gran % Seg Neutrophils % Lymphocytes % Monocytes % Eosinophils % Basophils % Neutrophils # Lymphocytes # Monocytes # Eosinophils # Basophils # PT INR Sodium 136 Potassium 3.6 Chloride 105 Carbon Dioxide 22 BUN 30 H Creatinine 4.38 H Est GFR ( Amer) 13 L Est GFR (Non-Af Amer) 10 L BUN/Creatinine Ratio 7 Glucose 114 H POC Glucose Calculated Osmolality 289 Calcium 10.6 Cultures: Cultures 08/19/16 15:00 Catheter Tip Culture - Preliminary Intravenous or Arterial Cath No growth. 08/19/16 15:00 Catheter Tip Culture - Preliminary Intravenous or Arterial Cath No growth. - Impressions Impressions Insertion Tunneled Catheter 08/19/16 00:00 IMPRESSION: Successful removal of two tunneled catheters. D/ : / 08/19/2016 16:11:24 Ruthann Boss MD / omi Interpreting Provider: Ruthann Boss MD Exam - Constitutional Vitals: Temp Pulse Resp BP Pulse Ox 98.9 F 59 13 104/59 97 08/21/16 08:30 08/21/16 10:00 08/21/16 10:43 08/21/16 10:43 08/21/16 10:43 General appearance: average body habitus, cooperative, no acute distress - Head Head exam: Present: atraumatic, normal inspection, normocephalic - Eye Eye exam: Present: EOMI, normal appearance, PERRL Pupils: Present: normal accommodation - ENT ENT exam: Present: mucous membranes moist - Neck Neck exam: Present: normal inspection Additional comments: Tracheostomy midline with no drainage noted. O2 via ventilator with FiO2 at 28%. - Respiratory Respiratory exam: Present: CTAB. Absent: rales, respiratory distress, rhonchi, wheezes - Cardiovascular Cardiovascular exam: Present: irregular rhythm. Absent: tachycardia - GI/Abdominal GI/Abdominal exam: Present: normal bowel sounds, soft. Absent: distended, tenderness Additional comments: Ileostomy noted to the RLQ with collection appliance intact. Moderate amount of dark green liquid stool noted. - Extremities Exam Extremities exam: Present: normal inspection. Absent: joint swelling, pedal edema, tenderness - Neurological Exam Neurological exam: Present: alert, oriented X3, no focal deficits, strengths equal and symetr throughout - Psychiatric Psychiatric exam: Present: normal affect, normal mood - Skin Skin exam: Present: dry, intact, normal color, warm - Additional findings Additional findings: Dressings to the right upper chest x2 C/D/I. - VTE Reasons for not Prescribing Prophylaxis: Not indicated-Anticoagulated or INR therapeutic Consult Discharge Plan - Plan Referrals: NO,PCP [Primary Care Provider] -
[2016-08-21 11:18] LABS: Basophils % 0.1 %; Eosinophils # 0.2 K/mcL (0.0-0.6); Eosinophils % 2.3 %; Hematocrit 29.4 % (35.3-44.9); Hemoglobin 8.9 g/dL (11.5-15.4); Immature Granulocytes % 0.8 % (0-4); Lymphocytes # 1.3 K/mcL (0.6-4.6); Lymphocytes % 16.5 %; Mean Corpuscular HGB Conc 30.3 g/dL (31.6-35.5); Mean Corpuscular Hemoglobin 28.3 pg (28.0-33.3); Mean Corpuscular Volume 93.6 fL (83.0-100.0); Mean Platelet Volume 9.9 fL (9.4-12.4); Monocytes # 0.7 K/mcL (0.0-1.3); Monocytes % 8.7 %; Neutrophils # 5.5 K/mcL (1.6-8.9); Platelet Count 195 K/mcL (140-400); Red Blood Count 3.14 M/mcL (3.82-4.97); Red Cell Distribution Width 16.4 % (11.5-14.5); Segmented Neutrophils % 71.6 %
[2016-08-21 11:31] LABS: Calcium 10.6 mg/dL (8.6-10.8); Potassium 3.9 mEq/L (3.5-4.5)
[2016-08-21] MEDS ORDERED: *HR* Heparin 5,000 UNIT/ML VIAL ONE (12:39)
--- NOTE | 2016-08-21 13:24 | IR Procedure Note ---
Date of procedure: 08/21/16 Consent Obtained: Verbal consent Timeout: Correct patient and procedure verified, Correct site verified, Time out performed, Skin prep completed Indications: renal failure Procedure Performed: temp HDC Site/Technique: rt IJ access Results/Findings: adequate placement Estimated blood loss (cc): 0 Complications: None; Tolerated procedure well Post Procedure Treatment Plan: CXR then use
[2016-08-21] MEDS: *HR* Heparin 5,000 UNIT/ML VIAL ONE (14:36)
--- NOTE | 2016-08-21 14:47 | Palliative - Consult Note ---
Date of Encounter: 08/21/16 Time of Encounter: 13:00 - Assessment and Plan (1) Code status needs review Current Visit: Yes Status: Acute Assessment and plan: Patient alert and agrees to participate in consult. Community Service Representativejocelyn Flores attended. Patient reports living at [facility] but desires to transition to another facility. ECF forms indicate that patient desires full code status and upon discussion. Discussion related to CPR, defibrillation, and meds. Patient is alert and confirms her desire to be FULL CODE. Patient agrees to have dialysis, meds, and vent support as needed. I discussed calling her daughter Nieves to let her know the patients wishes. She verbalized understanding. Patient is FULL CODE. (2) Counseling regarding goals of care Current Visit: Yes Status: Acute Assessment and plan: Patient currently resides in [place] but desires to be transferred to different facility closer to home. I called Nieves #[phone]. 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 I verbalized understanding and informed the ICU staff of this desire. Nieves reports that patient has plans in place to be transferred closer to her home once a new facility called [facility] in [place], [place]. I discussed this potential placement with Octavio Peguero and he will follow-up with DC to [facility]. Patient desires to be close to family and feels this is very important to her getting better. (3) Bacteremia Current Visit: Yes Status: Acute (4) ESRD (end stage renal disease) on dialysis Current Visit: Yes Status: Chronic Assessment and plan: per Nephrology (5) Chronic respiratory failure Current Visit: Yes Status: Chronic Assessment and plan: Pulmonary following Qualifiers: Respiratory failure complication: hypoxia Qualified Code(s): J96.11 - Chronic respiratory failure with hypoxia Palliative-CN HPI - Data of Consult Patient: new to practice Consult date: 08/21/16 Requesting Physician: Navi Sanz Primary Care Provider: PCP NO - Consult Narrative Palliative Care/Comfort Measures: Palliative care Reason for consult: Code Status Clarification History of present illness: Ms. Lundy is a 61 year old female admitted from [facility] with sepsis and severe bacteremia. Patient has chronic tracheostomy tube from having respiratory distress at [facility] after having MVR and AVR replacement last year. The patient is nonverbal but can lip speak and whisper. The patient has ESRD and is dialysis dependent. The patient has refused dialysis since admission and became combative last night pulling out IV lines. This palliative care consult is for code status clarification. Upon this consult, the patient is lying in bed, alert. She is receiving mechanical ventilation via tracheostomy. Vent settings are TV 500, FiO2 28%, rate 12, and a Peep of 5. She is calm and in no distress and agrees to talk. Community Service Representativechalo Flores is attending the meeting. A review of her lab indicates that she has positive sputum for multi-resistant acetobacter and is receiving antibiotic therapy. Chronic respiratory failure. In addition, the patient has had an episode of vaginal bleeding with an [employer] consult. CC: Yuri Ventura MD Past Med Surg Social Fam HX - Past Medical History Source: old records reviewed, obtained from family Medical history: atrial fibrillation, COPD, coronary artery disease, diabetes, dialysis, GERD, hyperlipidemia, hypertension, peripheral artery disease, renal disease, thyroid disease, valvular heart disease Psychiatric history: depression - Past Surgical History Surgical History: colostomy, other (Tissue AVR/MVR 2013 with redo in 2016 at [facility] ), tracheostomy - Social History Smoking Status: Never smoker Smokeless Tobacco Status: No Alcohol use: none Drug use: none Occupational status: unemployed Current living situation: [facility] Activity Level: Bed bound Recent Out of Country Travel Within the Last 8 Weeks: No Exposure or Possible Exposure to Illness During Travel: No - Family History Mother History Unknown: Yes Father History Unknown: Yes Medications and Allergies Alprazolam [Xanax 0.25 MG Tablet] 0.25 mg PO Q6H PRN 08/16/16 [History] Atorvastatin Calcium [Lipitor] 20 mg PO HS 08/16/16 [History] Calcitonin-[place], Synthetic [Miacalcin] 400 unit SQ Q12H 08/16/16 [History] Cyanocobalamin (Vitamin B-12) [Vitamin B-12] 100 mcg PO DAILY 08/16/16 [History] Ertapenem Sodium [Invanz] 500 mg IV DAILY 08/16/16 [History] Famotidine [Heartburn Prevention] 20 mg PO Q12H 08/16/16 [History] Folic Acid 1 mg PO DAILY 08/16/16 [History] Ipratropium/Albuterol Neb [Duoneb] 3 ml IH Q4H PRN 08/16/16 [History] Ipratropium/Albuterol Neb [Duoneb] 3 ml IH Q6H 08/16/16 [History] Isosorbide DInitrate [Isosorbide Dinitrate] 5 mg PO Q12H 08/16/16 [History] Levothyroxine [Synthroid] 150 mcg PO QAM 08/16/16 [History] Magnesium Oxide [Mag-Ox] 400 mg PO Q12H 08/16/16 [History] Metoprolol [Lopressor] 25 mg PO DAILY 08/16/16 [History] Midodrine [ProAmatine] 15 mg PO DAILY 08/16/16 [History] Multivitamin [Multi-Day Vitamins] 1 each PO DAILY 08/16/16 [History] Ondansetron HCl [Zofran] 4 mg PO Q4H PRN 08/16/16 [History] Oxycodone HCl 10 mg PO Q3H PRN 08/16/16 [History] Sertraline [Zoloft] 75 mg PO DAILY 08/16/16 [History] Terbinafine HCl [Lamisil] 1 appl TP BID 08/16/16 [History] Zolpidem [Ambien] 5 mg PO HS 08/16/16 [History] Allergies codeine Allergy (Verified 08/16/16 19:07) Hives Hydromorphone Allergy (Verified 08/16/16 19:09) Hives Iodinated Contrast Media - Oral and Allergy (Verified 08/16/16 19:10) Hives Penicillins Allergy (Verified 08/16/16 19:09) Hives povidone-iodine Allergy (Verified 08/16/16 19:10) Hives Review of systems: Patient with tracheostomy tube for chronic vent dependency. SOB. - Constitutional Constitutional ROS PAL: as per HPI - EENT Eyes: requires corrective lenses (glasses on) - Cardiovascular Cardiovascular ROS: as per HPI - Respiratory Respiratory: as per HPI - Gastrointestinal Gastrointestinal: as per HPI (Colostomy draining liquid brown stool. ) - Genitourinary Palliative ROS female: abnormal vaginal bleeding - Musculoskeletal Musculoskeletal ROS IM: muscle weakness - Integumentary ROS Integumentary: skin ulcer (coccyx wound) - Neurological Neurological ROS: as per HPI Palliative Care-Exam - Constitutional Vitals: Temp Pulse Resp BP Pulse Ox 98.0 F 78 16 119/74 95 08/21/16 12:00 08/21/16 12:00 08/21/16 12:00 08/21/16 12:00 08/21/16 12:00 General appearance: Present: average body habitus, cooperative, no acute distress - Head Head Exam: Present: atraumatic - Eye Eye exam: Present: PERRL - ENT ENT exam: Present: mucous membranes moist - Expanded ENT Exam Mouth Exam: Present: moist - Neck Neck exam: Present: normal inspection - Respiratory Respiratory exam: Present: decreased breath sounds Additional comments: Tracheostomy to vent. - Expanded Respiratory Exam Location: decreased breath sounds: Left, Right, Lower - Cardiovascular Cardiovascular exam: Present: clicks, +S1, +S2 - Expanded Cardiovascular Exam Peripheral pulses: 1+: Femoral (L) PM, Femoral (R) PM, Posterior Tibialis (L), Posterior Tibialis (R), 2+: Carotid (L) PM, Carotid (R) PM, Radial (L), Radial ( R), Dorsalis Pedis (L) PM, Dorsalis Pedis (R) PM - GI/Abdominal Exam GI/Abdominal exam: Present: normal bowel sounds (Colostomy intact to drainage bag, loose brown stool), soft additional comments: light brownish, red vaginal bleeding - Rectal Rectal exam: Present: deferred - Catheter Type: Urethral (Dill) - Extremities Exam Extremities exam: Present: full ROM - Neurological Exam Neurological exam: Present: alert - Expanded Neurological Exam Patient oriented to: Present: person, place, time - Skin Skin exam: Present: warm Additional comments: Coccy wound with dressing. Wound care following. Internal Medicine - CN: Reslt - Labs CBC & Chem 7: 08/21/16 11:10 08/21/16 11:10 Labs: Short CBC 08/21/16 08/21/16 Range/Units 04:36 11:10 WBC 5.6 7.7 (4.3-11.1) K/mcL Hgb 8.3 L 8.9 L (11.5-15.4) g/dL Hct 27.9 L 29.4 L (35.3-44.9) % Plt Count 185 195 (140-400) K/mcL Neutrophils # 3.9 5.5 (1.6-8.9) K/mcL BMP 08/21/16 08/21/16 04:36 11:10 Sodium 136 136 Potassium 3.6 3.9 Chloride 105 105 Carbon Dioxide 22 22 BUN 30 H 32 H Creatinine 4.38 H 4.53 H Glucose 114 H 58 L Calcium 10.6 10.6 - ABG Interpretation ABG results: ABG ABG pH 7.40 pH Units (7.32-7.45) 08/17/16 04:53 ABG pCO2 39 mmHg (35-45) 08/17/16 04:53 ABG pO2 74 mmHg (85-104) L 08/17/16 04:53 ABG O2 Saturation 95 % (95-98) 08/17/16 04:53 PT/INR, D-dimer PT 19.5 Seconds (9.4-12.1) H 08/21/16 04:36 - Impressions Impressions Insertion Tunneled Catheter 08/19/16 00:00 IMPRESSION: Successful removal of two tunneled catheters. D/ / 08/19/2016 16:11:24 Ruthann Boss MD / [email or web address] Interpreting Provider: Ruthann Boss MD Chest X-Ray 08/21/16 13:03 IMPRESSION: Right internal jugular central venous catheter tip projects over the cavoatrial junction. No pneumothorax. D/ : / 08/21/2016 13:27:45 Licha Hayes MD / [email or web address] Interpreting Provider: Licha Hayes MD Consult Discharge Plan - Plan Referrals: NO,PCP [Primary Care Provider] - Palliative Quality Palliative Quality: Screen for Code Status: Yes, Screen for Goals of Care: Yes, Screen for Pain: Yes, If Pain Regimen Started, Initiate Bowel Regimen: Yes, Screen for Nausea/Vomitting: Yes
--- NOTE | 2016-08-21 15:35 | Event Note ---
Date of Encounter: 08/21/16 Time of Encounter: 15:15 Patient participated in consult and has clarified her desires to be FULL CODE as per her ECF forms. Goals of care established and ECF discharge being followed up on by Octavio Fernandes. Palliative care team will sign-off as status has been clarified. Than you for the consult.
--- NOTE | 2016-08-21 16:03 | Consult Note ---
Date of Encounter: 08/21/16 Time of Encounter: 15:30 Assessment & Recommendation (1) Encephalopathy Current visit: Yes Status: Acute Assessment & Recommendation: After reviewing notes and discussion of patient case with medical team I recommend: 1. Continue medical stabilization 2. Capacity evaluation can be done when patient is completely stable if necessary 3. Advanced directive, power of district attorney for healthcare and guardianship issues need to be addressed . 4. There are no acute psychiatric conditions that require inpatient treatment at this time 5. As discussed patient dose of Zoloft can be increased to 100 mg daily Thank you for your consultation. History of Present Illness Patient: new to practice Requesting Physician: Yuri Ventura MD Reason for consult: capacity, hallucination History of present illness: Ms. Lundy is a 61 year old female with a complex medical history including sepsis, bacteremia, ESRD and thoracostomy. Psychiatric consultation was requested to evaluate capacity to make decisions regarding her DNR status. Review of the records indicates patient is in a state of delirium and encephalopathy due to multiple etiologies metabolic, toxic, renal. Patient could not be interviewed because of lethargy and she was having her dialysis. I had a discussion with the medical receptionist taking care the patient and I shared with him that capacity assessment can be done at a later time when patient is more alert however at this time patient seemed to be cooperative and accepting dialysis lab work and has been eating in a limited fashion and a resident indicated she may be discharged to her custodial after stabilization. CC: Yuri Ventura MD Past Med Surg Social Fam HX - Past Medical History Medical history: atrial fibrillation, COPD, coronary artery disease, diabetes, dialysis, GERD, hyperlipidemia, hypertension, peripheral artery disease, renal disease, thyroid disease, valvular heart disease - Past Surgical History Surgical History: colostomy, other (Tissue AVR/MVR 2013 with redo in 2016 at [facility] ), tracheostomy - Social History Smoking Status: Never smoker Smokeless Tobacco Status: No Alcohol use: none Drug use: none - Family History Mother History Unknown: Yes Father History Unknown: Yes Medications & Allergies Alprazolam [Xanax 0.25 MG Tablet] 0.25 mg PO Q6H PRN 08/16/16 [History] Atorvastatin Calcium [Lipitor] 20 mg PO HS 08/16/16 [History] Calcitonin-[place], Synthetic [Miacalcin] 400 unit SQ Q12H 08/16/16 [History] Cyanocobalamin (Vitamin B-12) [Vitamin B-12] 100 mcg PO DAILY 08/16/16 [History] Ertapenem Sodium [Invanz] 500 mg IV DAILY 08/16/16 [History] Famotidine [Heartburn Prevention] 20 mg PO Q12H 08/16/16 [History] Folic Acid 1 mg PO DAILY 08/16/16 [History] Ipratropium/Albuterol Neb [Duoneb] 3 ml IH Q4H PRN 08/16/16 [History] Ipratropium/Albuterol Neb [Duoneb] 3 ml IH Q6H 08/16/16 [History] Isosorbide DInitrate [Isosorbide Dinitrate] 5 mg PO Q12H 08/16/16 [History] Levothyroxine [Synthroid] 150 mcg PO QAM 08/16/16 [History] Magnesium Oxide [Mag-Ox] 400 mg PO Q12H 08/16/16 [History] Metoprolol [Lopressor] 25 mg PO DAILY 08/16/16 [History] Midodrine [ProAmatine] 15 mg PO DAILY 08/16/16 [History] Multivitamin [Multi-Day Vitamins] 1 each PO DAILY 08/16/16 [History] Ondansetron HCl [Zofran] 4 mg PO Q4H PRN 08/16/16 [History] Oxycodone HCl 10 mg PO Q3H PRN 08/16/16 [History] Sertraline [Zoloft] 75 mg PO DAILY 08/16/16 [History] Terbinafine HCl [Lamisil] 1 appl TP BID 08/16/16 [History] Zolpidem [Ambien] 5 mg PO HS 08/16/16 [History] Allergies codeine Allergy (Verified 08/16/16 19:07) Hives Hydromorphone Allergy (Verified 08/16/16 19:09) Hives Iodinated Contrast Media - Oral and Allergy (Verified 08/16/16 19:10) Hives Penicillins Allergy (Verified 08/16/16 19:09) Hives povidone-iodine Allergy (Verified 08/16/16 19:10) Hives Mental Status Exam Additional observations: Patient could not be interviewed she presented as a thin elderly white female lying in bed sleeping, and lethargic she was having her dialysis and unable to respond to participate in the evaluation. Results - Vital Signs Vital signs: Temp Pulse Resp BP Pulse Ox 97.3 F L 58 16 104/55 95 08/21/16 15:15 08/21/16 15:00 08/21/16 15:00 08/21/16 15:45 08/21/16 15:00 - Labs Labs: Laboratory Last Values WBC 7.7 K/mcL (4.3-11.1) 08/21/16 11:10 RBC 3.14 M/mcL (3.82-4.97) L 08/21/16 11:10 Hgb 8.9 g/dL (11.5-15.4) L 08/21/16 11:10 Hct 29.4 % (35.3-44.9) L 08/21/16 11:10 MCV 93.6 fL (83.0-100.0) 08/21/16 11:10 MCH 28.3 pg (28.0-33.3) 08/21/16 11:10 MCHC 30.3 g/dL (31.6-35.5) L 08/21/16 11:10 RDW 16.4 % (11.5-14.5) H 08/21/16 11:10 Plt Count 195 K/mcL (140-400) 08/21/16 11:10 MPV 9.9 fL (9.4-12.4) 08/21/16 11:10 Immature Gran % 0.8 % (0-4) 08/21/16 11:10 Seg Neutrophils % 71.6 % 08/21/16 11:10 Lymphocytes % 16.5 % 08/21/16 11:10 Monocytes % 8.7 % 08/21/16 11:10 Eosinophils % 2.3 % 08/21/16 11:10 Basophils % 0.1 % 08/21/16 11:10 Neutrophils # 5.5 K/mcL (1.6-8.9) 08/21/16 11:10 Lymphocytes # 1.3 K/mcL (0.6-4.6) 08/21/16 11:10 Monocytes # 0.7 K/mcL (0.0-1.3) 08/21/16 11:10 Eosinophils # 0.2 K/mcL (0.0-0.6) 08/21/16 11:10 Basophils # 0.0 K/mcL (0.0-0.2) 08/21/16 11:10 PT 19.5 Seconds (9.4-12.1) H 08/21/16 04:36 INR 1.8 08/21/16 04:36 APTT 78.2 Seconds (26.0-36.0) H 08/19/16 05:29 Heparin Anti-Xa, Unfract 0.37 IU/mL (0.30-0.70) 08/17/16 12:29 ABG pH 7.40 pH Units (7.32-7.45) 08/17/16 04:53 ABG pCO2 39 mmHg (35-45) 08/17/16 04:53 ABG pO2 74 mmHg (85-104) L 08/17/16 04:53 ABG HCO3 24.2 mEQ/L (21-27) 08/17/16 04:53 ABG Total CO2 25.4 mEq/L (20-26) 08/17/16 04:53 ABG O2 Saturation 95 % (95-98) 08/17/16 04:53 ABG Base Excess -0.5 mEq/L (-2.0 to 3.0) 08/17/16 04:53 Blood Gas Modality VCT 08/17/16 04:53 Inspired O2 28 % 08/17/16 04:53 Sodium 136 mEq/L (136-145) 08/21/16 11:10 Potassium 3.9 mEq/L (3.5-4.5) 08/21/16 11:10 Chloride 105 mEq/L (98-109) 08/21/16 11:10 Carbon Dioxide 22 mEq/L (19-29) 08/21/16 11:10 BUN 32 mg/dL (7-20) H 08/21/16 11:10 Creatinine 4.53 mg/dL (0.57-1.11) H 08/21/16 11:10 Est GFR ( Amer) 12 (> 60) L 08/21/16 11:10 Est GFR (Non-Af Amer) 10 (> 60) L 08/21/16 11:10 BUN/Creatinine Ratio 7 (6-26) 08/21/16 11:10 Glucose 58 mg/dL (70-99) L 08/21/16 11:10 POC Glucose 68 (58-89) 08/21/16 15:17 Calculated Osmolality 287 (280-300) 08/21/16 11:10 Lactic Acid 1.1 mmol/L (0.5-2.2) 08/16/16 19:27 Calcium 10.6 mg/dL (8.6-10.8) 08/21/16 11:10 Phosphorus 2.6 mg/dL (2.3-4.7) 08/16/16 19:27 Magnesium 1.8 mg/dL (1.6-2.6) 08/17/16 02:14 Total Bilirubin 1.0 mg/dL (0.2-1.2) 08/20/16 03:53 Direct Bilirubin 1.2 mg/dL (0.0-0.5) H 08/17/16 00:11 Indirect Bilirubin 0.7 mg/dL (0.0-1.2) 08/17/16 00:11 AST 31 Units/L (5-34) 08/20/16 03:53 ALT 13 Units/L (0-55) 08/20/16 03:53 Alkaline Phosphatase 229 Units/L (38-126) H 08/20/16 03:53 Troponin I 0.05 ng/mL (0-0.03) H* 08/17/16 08:05 B-Natriuretic Peptide 630 pg/mL (0-100) H 08/16/16 19:27 Serum Total Protein 6.4 g/dL (6.0-8.3) 08/20/16 03:53 Albumin 2.1 g/dL (3.5-5.0) L 08/20/16 03:53 Globulin 4.3 g/dL (2.4-3.5) H 08/20/16 03:53 Albumin/Globulin Ratio 0.5 (1.1-2.2) L 08/20/16 03:53 Lipase 67 Units/L (8-78) 08/16/16 19:27 Stl C. cayetanensis PCR Not detected (Not detect) 08/16/16 18:30 Stool Rotavirus A PCR Not detected (Not detect) 08/16/16 18:30 Stl Adenov F 40/41 PCR Not detected (Not detect) 08/16/16 18:30 Stool Astrovirus (PCR) Not detected (Not detect) 08/16/16 18:30 Stool Campylobacter PCR Not detected (Not detect) 08/16/16 18:30 Stl C. diff Tox A/B PCR Not detected (Not detect) 08/16/16 18:30 Stool Cryptosporidium PCR Not detected (Not detect) 08/16/16 18:30 Stl Sh Tox Pr E STEC PCR Not detected (Not detect) 08/16/16 18:30 Stool E coli O157 PCR Not detected (Not detect) 08/16/16 18:30 Stl Enterotoxigenic E PCR Not detected (Not detect) 08/16/16 18:30 Stool EPEC (PCR) Not detected (Not detect) 08/16/16 18:30 Stool EAEC (PCR) Not detected (Not detect) 08/16/16 18:30 Stl E. histolytica PCR Not detected (Not detect) 08/16/16 18:30 Stool Giardia Lamblia PCR Not detected (Not detect) 08/16/16 18:30 Stool Salmonella PCR Not detected (Not detect) 08/16/16 18:30 Stool Sapovirus (PCR) Not detected (Not detect) 08/16/16 18:30 Stl P. shigelloides PCR Not detected (Not detect) 08/16/16 18:30 Stl Shigella/EIEC PCR Not detected (Not detect) 08/16/16 18:30 St Y.enterocolitica PCR Not detected (Not detect) 08/16/16 18:30 Stool Vibrio (PCR) Not detected (Not detect) 08/16/16 18:30 Stl Vibrio cholerae PCR Not detected (Not detect) 08/16/16 18:30 Stl Norovirus GI/GII PCR Not detected (Not detect) 08/16/16 18:30 Stl GI Panel (PCR) Com See below 08/16/16 18:30 Vancomycin Trough 24.5 mcg/mL (10-20) H* 08/20/16 03:54 Random Vancomycin 24.8 mcg/mL 08/19/16 05:29 Hep Bs Antigen Nonreactive (Nonreactive) 08/17/16 00:11 Hep Bs Antibody 7.95 mIU/mL 08/17/16 00:11 Specimen Rejected Volume 08/19/16 04:15 Blood Type O POSITIVE 08/21/16 12:10 Antibody Screen NEGATIVE 08/21/16 12:10 - Impressions Impressions Insertion Tunneled Catheter 08/19/16 00:00 IMPRESSION: Successful removal of two tunneled catheters. D/ / 08/19/2016 16:11:24 Ruthann Boss MD / [email or web address] Interpreting Provider: Ruthann Boss MD Guidance Needle Placement Ultrasound 08/21/16 00:00 IMPRESSION: Successful ultrasound guided non-tunneled right jugular hemodialysis catheter placement. D/ / Ruthann Boss MD / Ruthann Boss MD Interpreting Provider: Ruthann Boss MD Insertion Non-Tunneled Catheter 08/21/16 00:00 IMPRESSION: Successful ultrasound guided non-tunneled right jugular hemodialysis catheter placement. D/ / Ruthann Boss MD / Ruthann Boss MD Interpreting Provider: Ruthann Boss MD Chest X-Ray 08/21/16 13:03 IMPRESSION: Right internal jugular central venous catheter tip projects over the cavoatrial junction. No pneumothorax. D/ / 08/21/2016 13:27:45 Licha Hayes MD / [email or web address] Interpreting Provider: Licha Hayes MD Consult Discharge Plan - Plan Referrals: NO,PCP [Primary Care Provider] -
[2016-08-21] MEDS: *HR* LORazepam 2 MG/ML VIAL IVP PRN (23:43)
[2016-08-22 04:44] LABS: INR 1.6; Prothrombin Time 17.1 Seconds (9.4-12.1)
[2016-08-22 04:48] LABS: Basophils % 0.4 %; Eosinophils # 0.3 K/mcL (0.0-0.6); Eosinophils % 3.1 %; Hematocrit 30.2 % (35.3-44.9); Hemoglobin 8.9 g/dL (11.5-15.4); Immature Granulocytes % 0.7 % (0-4); Lymphocytes # 1.2 K/mcL (0.6-4.6); Lymphocytes % 13.8 %; Mean Corpuscular HGB Conc 29.5 g/dL (31.6-35.5); Mean Corpuscular Hemoglobin 27.7 pg (28.0-33.3); Mean Corpuscular Volume 94.1 fL (83.0-100.0); Mean Platelet Volume 9.9 fL (9.4-12.4); Monocytes # 0.6 K/mcL (0.0-1.3); Monocytes % 7.2 %; Neutrophils # 6.3 K/mcL (1.6-8.9); Platelet Count 210 K/mcL (140-400); Red Blood Count 3.21 M/mcL (3.82-4.97); Red Cell Distribution Width 16.5 % (11.5-14.5); Segmented Neutrophils % 74.8 %
[2016-08-22 04:58] LABS: Calcium 9.5 mg/dL (8.6-10.8); Potassium 4.2 mEq/L (3.5-4.5)
[2016-08-22] MEDS: *HR* Dextrose 50 % in Water (Syg) 50 ML SYRINGE IVP PRN (05:09)
[2016-08-22] MEDS: *HR* Heparin 5,000 UNIT/ML VIAL SQ SCH ×3 (05:09→23:36)
--- NOTE | 2016-08-22 06:50 | Pulmonology Progress Note ---
Addendum entered and electronically signed by Navi Sanz DO 11:16: Ceftriaxone and flagyl day 3. continue for total of 14 days. Original Note: <Navi Sanz - Last Filed: 08/22/16 08:12> Date of Encounter: 08/22/16 Time of Encounter: 06:44 Assessment and Plan (1) Severe sepsis Current Visit: Yes Status: Resolved 61-year-old female presented to ER with positive blood cultures from her ECF on August 13 which pain back positive for Proteus mirabilis and gram-positive cocci (obtained from tunneled PICC). She was started on Invanz and vancomycin at her ECF. On presentation patient was tachycardic and hypotensive, and confused. Patient was continued on vancomycin, started on meropenem and Flagyl. Severe sepsis only Patient is alert and oriented, tachycardia and hypotension has resolved. -peripheral Blood cultures on 08/13 show P. mirabilis and blood cultures of tunneled PICC line show GPC, likely anarobe -Repeat peripheral blood cultures were taken in ER on admission which are for the last 48 hours. Culture of catheter tips are preliminary normal. -Sputum cultures are positive for [id number] acetobacter -Continue metronidazole and ceftriaxone day 3 Patient on CPAP trial. Plan to transition to trach mask. Possible transfer out today. (2) Bacteremia Current Visit: Yes Status: Acute polymicrobia: peripheral Blood cultures on 08/13 show P. mirabilis and blood cultures of tunneled PICC line show GPC, likely anarobe may be 2nd to tunneled PICC, perma cath, pneumonia (gram - radha), CT abdomen shows evidence of possible diverticulitis, bladder wall thickening consistent with cystitis There is concern for endocarditis due to patient having history of mitral valve and aortic valve replacement. TTE was done showing EF of 70% however all 4 valves were not visualized due to patient being in afib. Study was inconclusive. perma cath, PICC line were removed -48 hour peripheral blood cultures negative. Catheter tip cultures negative. -continue ceftriaxone and flagyl day 2 -will have dialysis catheter placed by IR today and possible dialysis tomorrow. (3) Major depression Current Visit: Yes Status: Acute hx of major depression. Patient is on zoloft 75mg daily. over past 48 hours patient has been depressed and having crying spells. The situation in the past several days where patient was not accepting medical care may have been recurrent episode of major depression. Psychiatry agrees to increase dose of zoloft to 100mg dialy. Qualifiers: Major depression recurrence: recurrent Active/Remission status: currently active Major depression episode severity: severe Psychotic features: without psychotic features Qualified Code(s): F33.2 - Major depressive disorder, recurrent severe without psychotic features (4) Counseling regarding goals of care Current Visit: Yes Status: Acute Patient was refusing care: trach care, bath, blood cultures however she has made a turn around in the last 24 hours. Patient is accepting all care pleasant. However she is depressed and has crying spells due to her medical conditions. She states she would like to go home. We will try to wean patient off ventilator. Currently on CPAP and transfer out to . Palliative talked to patient yesterday and patient states she still wants to be FULL CODE. 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 Discussed with ID that we will only treat if active disease manifests. (6) Acute encephalopathy Current Visit: Yes Status: Resolved 2nd bactermia/sepsis Patient presented confused. She is currently awake alert and conversing. (7) ESRD (end stage renal disease) on dialysis Current Visit: Yes Status: Chronic hx of ESRD dialysis dependent. underwent dialysis yesterday with no complications. Patient has Temp dialysis catheter in right IJ. (8) Chronic respiratory failure Current Visit: Yes Status: Chronic Patient had a 76 day admission at [facility] following replacement of mitral valve and aortic valve with postoperative complications of respiratory failure, and prolonged use of mechanical ventilation where she ended up needing a tracheostomy. Currently patient is on CPAP. She is tolerating it well. Patient on CPAP and pressure support with goal of weaning off of ventilator. Qualifiers: Respiratory failure complication: hypoxia Qualified Code(s): J96.11 - Chronic respiratory failure with hypoxia (9) DVT prophylaxis Current Visit: Yes Status: Acute heparin SQ (10) History of heart valve replacement with mechanical valve Current Visit: Yes Status: Chronic As stated above patient had history of heart valve replacement including mitral valve and aortic valve in 2011 with tissue MVR and AVR replacement last year. She was discharged from [facility] on anticoagulation of aspirin and sb heparin. According to [facility] discharge note patient was not put on novel oral anticoagulation or warfarin because of complications of postoperative anemia. d/c heparin. continue home aspirin and heparin. hgb stable (11) Vaginal bleeding, abnormal Current Visit: Yes Status: Acute Patient had an episode of vaginal bleeding after admission. She states that this started 10 years ago when she was started on dialysis. She denies any history of vaginal, endometrial, ovarian cancer. She states she has had 10 pregnancies. She has not followed up with her OIL TESTER since this bleeding was started. We will consult OIL TESTER for further recommendations. -Transvaginal ultrasound shows mild endometrial thickening of 5mm. -will try outpatient follow up with P[employer] (12) Atrial fibrillation Current Visit: Yes Status: Acute Rate is controlled. s/p AVR and MVR at [facility] patient has had afib. She was d/c on aspirin and heparin as anticogulation Rhythm control with metoprlol. Qualifiers: Atrial fibrillation type: chronic Qualified Code(s): I48.2 - Chronic atrial fibrillation Subjective Principal diagnosis: Severe sepsis Interval history: Patient has made a considerable turn around. She is accepting all treatment. Underwent dialysis. Currently she is on CPAP. She has crying spells and is depressed due to her multiple medical conditions. Objective PUL Vital signs: Last Vital Signs Temp 99.8 F H 08/22/16 05:09 Pulse 69 08/22/16 06:08 Resp 15 08/22/16 06:08 BP 97/55 08/22/16 06:08 Pulse Ox 93 L 08/22/16 06:08 General appearance: no acute distress Eyes: nonicteric ENT: oropharynx moist Neck: no lymphadenopathy Effort: mildly labored (RR-30 on cpap) Auscultation: bilateral: clear Cardiovascular: irregular rhythm (afib) Gastrointestinal: normoactive bowel sounds, soft, other (colostomy outputting well) Integumentary: decubitus ulcer, other (10x10 stage 1) Extremities: no cyanosis, no edema, no clubbing normal mental status mood appropriate Ventilator Settings Ventilator Settings: Ventilator Settings, Last 8 Hours Ventilator Mode A/C Ventilator Mode A/C Ventilator Mode A/C Ventilator Mode A/C Ventilator Mode A/C Ventilator Mode A/C Ventilator Mode A/C Ventilator Mode A/C Ventilator Mode A/C Ventilator Mode A/C Ventilator Tidal Volume 500 Setting Ventilator Tidal Volume 500 Setting Ventilator Tidal Volume 500 Setting Ventilator Tidal Volume 500 Setting Ventilator Tidal Volume 500 Setting Ventilator Tidal Volume 500 Setting Ventilator Tidal Volume 500 Setting Ventilator Tidal Volume 500 Setting Ventilator Tidal Volume 500 Setting Ventilator Tidal Volume 500 Setting Ventilator Respiratory Rate 12 Setting Ventilator Respiratory Rate 12 Setting Ventilator Respiratory Rate 12 Setting Ventilator Respiratory Rate 12 Setting Ventilator Respiratory Rate 12 Setting Ventilator Respiratory Rate 12 Setting Ventilator Respiratory Rate 12 Setting Ventilator Respiratory Rate 12 Setting Ventilator Respiratory Rate 12 Setting Ventilator Respiratory Rate 12 Setting Actual Respiratory Rate 13 Actual Respiratory Rate 16 Actual Respiratory Rate 24 Positive End Expiratory 5 Pressure Positive End Expiratory 5 Pressure Positive End Expiratory 5 Pressure Positive End Expiratory 5 Pressure Positive End Expiratory 5 Pressure Positive End Expiratory 5 Pressure Positive End Expiratory 5 Pressure Positive End Expiratory 5 Pressure Positive End Expiratory 5 Pressure Positive End Expiratory 5 Pressure Peak Inspiratory Airway 28 Pressure Peak Inspiratory Airway 28 Pressure Peak Inspiratory Airway 32 Pressure Results - Laboratory Findings CBC and BMP: 08/22/16 04:13 08/22/16 04:13 ABG ABG pH 7.40 pH Units (7.32-7.45) 08/17/16 04:53 ABG pCO2 39 mmHg (35-45) 08/17/16 04:53 ABG pO2 74 mmHg (85-104) L 08/17/16 04:53 ABG O2 Saturation 95 % (95-98) 08/17/16 04:53 PT/INR, D-dimer PT 17.1 Seconds (9.4-12.1) H 08/22/16 04:13 Abnormal lab findings: Abnormal lab results RBC 3.21 M/mcL (3.82-4.97) L 08/22/16 04:13 Hgb 8.9 g/dL (11.5-15.4) L 08/22/16 04:13 Hct 30.2 % (35.3-44.9) L 08/22/16 04:13 MCH 27.7 pg (28.0-33.3) L 08/22/16 04:13 MCHC 29.5 g/dL (31.6-35.5) L 08/22/16 04:13 RDW 16.5 % (11.5-14.5) H 08/22/16 04:13 PT 17.1 Seconds (9.4-12.1) H 08/22/16 04:13 APTT 78.2 Seconds (26.0-36.0) H 08/19/16 05:29 ABG pO2 74 mmHg (85-104) L 08/17/16 04:53 Creatinine 2.66 mg/dL (0.57-1.11) H 08/22/16 04:13 Est GFR ( Amer) 22 (> 60) L 08/22/16 04:13 Est GFR (Non-Af Amer) 18 (> 60) L 08/22/16 04:13 BUN/Creatinine Ratio 5 (6-26) L 08/22/16 04:13 Glucose 58 mg/dL (70-99) L 08/22/16 04:13 Direct Bilirubin 1.2 mg/dL (0.0-0.5) H 08/17/16 00:11 Alkaline Phosphatase 229 Units/L (38-126) H 08/20/16 03:53 Troponin I 0.05 ng/mL (0-0.03) H* 08/17/16 08:05 B-Natriuretic Peptide 630 pg/mL (0-100) H 08/16/16 19:27 Albumin 2.1 g/dL (3.5-5.0) L 08/20/16 03:53 Globulin 4.3 g/dL (2.4-3.5) H 08/20/16 03:53 Albumin/Globulin Ratio 0.5 (1.1-2.2) L 08/20/16 03:53 Vancomycin Trough 24.5 mcg/mL (10-20) H* 08/20/16 03:54 - Microbiology Findings Microbiology Findings: Microbiology, Last 48 Hours 08/19/16 15:00 Catheter Tip Culture - Preliminary Intravenous or Arterial Cath No growth. 08/19/16 15:00 Catheter Tip Culture - Preliminary Intravenous or Arterial Cath No growth. - Clinical Findings Intake & Output: Intake & Output 08/21/16 08/21/16 08/22/16 15:59 23:59 07:59 Intake Total 700 / 700 220 / 220 150 / 150 Output Total 100 / 100 175 / 175 Balance 700 / 700 120 / 120 -25 / -25 Weight 93.531 kg 93.3 kg - VTE Reasons for not Prescribing Prophylaxis: Not indicated-Anticoagulated or INR therapeutic Consult Discharge Plan - Plan Referrals: NO,PCP [Primary Care Provider] - <Jonathon Villasenor - Last Filed: 08/22/16 15:55> Objective PUL Vital signs: Last Vital Signs Temp 98.9 F 08/22/16 12:00 Pulse 79 08/22/16 14:00 Resp 12 08/22/16 15:17 BP 93/62 08/22/16 15:17 Pulse Ox 97 08/22/16 15:17 Ventilator Settings Ventilator Settings: Ventilator Settings, Last 8 Hours Ventilator Mode VC+ Ventilator Mode VC+ Ventilator Mode CPAP Ventilator Mode CPAP Ventilator Tidal Volume 500 Setting Ventilator Tidal Volume 500 Setting Ventilator Respiratory Rate 12 Setting Ventilator Respiratory Rate 12 Setting Actual Respiratory Rate 12 Actual Respiratory Rate 12 Actual Respiratory Rate 27 Actual Respiratory Rate 27 Positive End Expiratory 5 Pressure Positive End Expiratory 5 Pressure Positive End Expiratory 5 Pressure Positive End Expiratory 5 Pressure Peak Inspiratory Airway 27 Pressure Peak Inspiratory Airway 26 Pressure Peak Inspiratory Airway 16 Pressure Peak Inspiratory Airway 16 Pressure Results - Laboratory Findings CBC and BMP: 08/22/16 04:13 08/22/16 04:13 ABG ABG pH 7.40 pH Units (7.32-7.45) 08/17/16 04:53 ABG pCO2 39 mmHg (35-45) 08/17/16 04:53 ABG pO2 74 mmHg (85-104) L 08/17/16 04:53 ABG O2 Saturation 95 % (95-98) 08/17/16 04:53 PT/INR, D-dimer PT 17.1 Seconds (9.4-12.1) H 08/22/16 04:13 Abnormal lab findings: Abnormal lab results RBC 3.21 M/mcL (3.82-4.97) L 08/22/16 04:13 Hgb 8.9 g/dL (11.5-15.4) L 08/22/16 04:13 Hct 30.2 % (35.3-44.9) L 08/22/16 04:13 MCH 27.7 pg (28.0-33.3) L 08/22/16 04:13 MCHC 29.5 g/dL (31.6-35.5) L 08/22/16 04:13 RDW 16.5 % (11.5-14.5) H 08/22/16 04:13 PT 17.1 Seconds (9.4-12.1) H 08/22/16 04:13 APTT 78.2 Seconds (26.0-36.0) H 08/19/16 05:29 ABG pO2 74 mmHg (85-104) L 08/17/16 04:53 Creatinine 2.66 mg/dL (0.57-1.11) H 08/22/16 04:13 Est GFR ( Amer) 22 (> 60) L 08/22/16 04:13 Est GFR (Non-Af Amer) 18 (> 60) L 08/22/16 04:13 BUN/Creatinine Ratio 5 (6-26) L 08/22/16 04:13 Glucose 58 mg/dL (70-99) L 08/22/16 04:13 Direct Bilirubin 1.2 mg/dL (0.0-0.5) H 08/17/16 00:11 Alkaline Phosphatase 229 Units/L (38-126) H 08/20/16 03:53 Troponin I 0.05 ng/mL (0-0.03) H* 08/17/16 08:05 B-Natriuretic Peptide 630 pg/mL (0-100) H 08/16/16 19:27 Albumin 2.1 g/dL (3.5-5.0) L 08/20/16 03:53 Globulin 4.3 g/dL (2.4-3.5) H 08/20/16 03:53 Albumin/Globulin Ratio 0.5 (1.1-2.2) L 08/20/16 03:53 Vancomycin Trough 24.5 mcg/mL (10-20) H* 08/20/16 03:54 - Microbiology Findings Microbiology Findings: Microbiology, Last 48 Hours 08/19/16 15:00 Catheter Tip Culture - Final Intravenous or Arterial Cath No growth. 08/21/16 12:10 Blood Culture - Preliminary Peripheral Venipuncture No growth. - Clinical Findings Intake & Output: Intake & Output 08/21/16 08/22/16 08/22/16 23:59 07:59 15:59 Intake Total 220 / 220 150 / 150 240 / 240 Output Total 100 / 100 175 / 175 100 / 100 Balance 120 / 120 -25 / -25 140 / 140 Weight 93.3 kg - Attending Attestation I examined this patient and my medical decision-making was reviewed with the ADMINISTRATIVE OFFICER/PA/Advanced Practice Nurse/Resident Physician. I agree with the documented findings, disposition and treatment plan as described except to the extent set forth below. Patient seen and examined. Labs, radiology, chart personally reviewed. Agree with resident's history and physical, assessment, plan with following comments: MEAT SCRUBBER: Patient follows commands, Pulmonary: Acceptable oxygenation and ventilation patient weaned off to trach mask and needs speech to use PM valve communication and to use them that night and when necessary Cardiovascular: stable GI: Nutrition per dietary and GI prophylaxis per routine Heme: DVT prophylaxis per routine ID: Continue antibiotics and plan to de-escalation Renal; hemodialysis Endorcine: blood glucose is monitored Lines: all lines checked and no evidence of infections Skin: skin care to prevent pressure ulcers per nursing routine care Overall prognosis is poor and transferred to the floor [address]
[2016-08-22] MEDS: MetroNIDAZOLE 500 MG/100 ML 500 MG/100 ML BAG IVPB SCH ×3 (09:04→23:35)
[2016-08-22] MEDS: Pantoprazole 40 MG VIAL IVP SCH (09:04)
--- NOTE | 2016-08-22 10:05 | Infectious Disease Progress No ---
Date of Encounter: 08/22/16 Time of Encounter: 10:03 - Assessment and Plan (1) Severe sepsis Current Visit: Yes Status: Resolved The patient had three SIRS criteria plus encephalopathy on admission. She also had leukocytosis on labs drawn at the [facility]. Likely secondary to bacteremia. Improved. The patient has been afebrile x 48 hours. Tachycardia has resolved. WBC has normalized. Encephalopathy appears improved. Blood cultures drawn 08/13/16 at the [facility] were positive 1/2 sets for P. mirabilis (peripheral). Blood culture drawn from the patient's tunneled PICC line positive for GPC, likely anaerobe given the prolonged time it has taken to grow. Still awaiting final ID. Repeat blood cultures drawn 08/16/16 in the ED are NGTD (drawn peripherally). / Order submitted for blood cultures to be drawn 08/19/16 after line removal. Patient refused to allow staff to draw labs. She agreed to have labs drawn --> pending. (2) Bacteremia Current Visit: Yes Status: Acute Causative organism P. mirabilis and GPC (likely anaerobic). Source unclear --> pneumonia vs. tunneled PICC line or Permacath infection vs. other. Patient anuric. Possible GI or lung source. Blood cultures drawn 08/13/16 at the [facility] were positive 1/2 sets for P. mirabilis (drawn peripherally). Blood culture drawn from the tunneled PICC was positive for GPC, likely anaerobic given the prolonged time it has taken to grow. Still awaiting final ID. Repeat blood cultures (drawn peripherally) 08/16/16 are negative. No cultures were drawn from the tunneled PICC line in the ED. Received Invanz and Vancomycin in the ED (started on 08/15/16 per F staff). Review of the records from [facility] reveals the tunneled PICC line and Permacath were placed at [facility] in April. PICC line and Perma-cath removed 08/19/16. Blood cultures were ordered to be drawn after lines were removed. Patient refused, but then agreed to have them drawn 08/21/16 AM--> pending. Line tips were sent for culture and are negative. Continue Rocephin 2 grams IV daily. Give after HD on dialysis days. Will cover Proteus. Continue Flagyl 500mg IV TID for anaerobic coverage. Duration of treatment depends on the clinical picture. Monitor renal function and for drug toxicity and dose-adjust antibiotics. (3) Acute encephalopathy Current Visit: Yes Status: Resolved Etiology likely secondary to sepsis. Concern for possible underlying mental illness given the patient's abrupt change in her mental status over the last 24 hours. Improved. The patient has become more compliant with her treatment regimen. Psych consulted to determine mental capacity. Await their findings. Unsure of the patient's baseline. Management per the primary team. 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 (6) ESRD (end stage renal disease) on dialysis Current Visit: Yes Status: Chronic Nephrology consulted and following. Perma-cath removed 08/19/16. TDC placed to the right IJ 08/21/16. (7) Chronic respiratory failure Current Visit: Yes Status: Chronic Status post tracheostomy in 2016. Off vent. O2 via trach mask. Management per the pulmonology team. 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 No evidence of active disease. Avoid treatment unless evidence of active disease manifests. 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 Pelvic ultrasound showed endometrial thickening. Management per the HOT METAL CAR OPERATOR team. - Subjective Interval history: Patient seen and examined. No acute events noted overnight. Patient more compliant with prescribed regimen. Accepting of assessments, medications, and interventions. She denies fevers or chills. Denies chest pain or shortness of breath or cough. Reports pain "all over" today. She does report a productive cough. Denies nausea, vomiting, or abdominal pain. States she does not have much of an appetite and per nursing only drank some juice this morning. Denies oral thrush. Infect Dis PN-Objective Data - Labs CBC & Chem 7: 08/22/16 04:13 08/22/16 04:13 Labs: Laboratory Results - last 24 hr 08/21/16 08/21/1617 01:01 03:56 07:32 WBC RBC Hgb Hct MCV MCH MCHC RDW Plt Count MPV Immature Gran % Seg Neutrophils % Lymphocytes % Monocytes % Eosinophils % Basophils % Neutrophils # Lymphocytes # Monocytes # Eosinophils # Basophils # PT INR Sodium Potassium Chloride Carbon Dioxide BUN Creatinine Est GFR ( Amer) Est GFR (Non-Af Amer) BUN/Creatinine Ratio Glucose POC Glucose 66 54 L 50 L Calculated Osmolality Calcium Blood Type Antibody Screen 08/21/16 08/21/16 08/21/16 11:10 11:10 11:50 WBC 7.7 RBC 3.14 L Hgb 8.9 L Hct 29.4 L MCV 93.6 MCH 28.3 MCHC 30.3 L RDW 16.4 H Plt Count 195 MPV 9.9 Immature Gran % 0.8 Seg Neutrophils % 71.6 Lymphocytes % 16.5 Monocytes % 8.7 Eosinophils % 2.3 Basophils % 0.1 Neutrophils # 5.5 Lymphocytes # 1.3 Monocytes # 0.7 Eosinophils # 0.2 Basophils # 0.0 PT INR Sodium 136 Potassium 3.9 Chloride 105 Carbon Dioxide 22 BUN 32 H Creatinine 4.53 H Est GFR ( Amer) 12 L Est GFR (Non-Af Amer) 10 L BUN/Creatinine Ratio 7 Glucose 58 L POC Glucose 60 Calculated Osmolality 287 Calcium 10.6 Blood Type Antibody Screen 08/21/16 08/21/16 08/21/16 12:10 15:17 19:37 WBC RBC Hgb Hct MCV MCH MCHC RDW Plt Count MPV Immature Gran % Seg Neutrophils % Lymphocytes % Monocytes % Eosinophils % Basophils % Neutrophils # Lymphocytes # Monocytes # Eosinophils # Basophils # PT INR Sodium Potassium Chloride Carbon Dioxide BUN Creatinine Est GFR ( Amer) Est GFR (Non-Af Amer) BUN/Creatinine Ratio Glucose POC Glucose 68 67 Calculated Osmolality Calcium Blood Type O POSITIVE Antibody Screen NEGATIVE 08/22/16 08/22/16 08/22/16 00:07 04:13 04:13 WBC 8.5 RBC 3.21 L Hgb 8.9 L Hct 30.2 L MCV 94.1 MCH 27.7 L MCHC 29.5 L RDW 16.5 H Plt Count 210 MPV 9.9 Immature Gran % 0.7 Seg Neutrophils % 74.8 Lymphocytes % 13.8 Monocytes % 7.2 Eosinophils % 3.1 Basophils % 0.4 Neutrophils # 6.3 Lymphocytes # 1.2 Monocytes # 0.6 Eosinophils # 0.3 Basophils # 0.0 PT 17.1 H INR 1.6 Sodium Potassium Chloride Carbon Dioxide BUN Creatinine Est GFR ( Amer) Est GFR (Non-Af Amer) BUN/Creatinine Ratio Glucose POC Glucose 63 Calculated Osmolality Calcium Blood Type Antibody Screen 08/22/16 04:13 WBC RBC Hgb Hct MCV MCH MCHC RDW Plt Count MPV Immature Gran % Seg Neutrophils % Lymphocytes % Monocytes % Eosinophils % Basophils % Neutrophils # Lymphocytes # Monocytes # Eosinophils # Basophils # PT INR Sodium 141 Potassium 4.2 Chloride 106 Carbon Dioxide 26 BUN 13 D Creatinine 2.66 H Est GFR ( Amer) 22 L Est GFR (Non-Af Amer) 18 L BUN/Creatinine Ratio 5 L Glucose 58 L POC Glucose Calculated Osmolality 290 Calcium 9.5 Blood Type Antibody Screen Cultures: Cultures 08/21/16 12:10 Blood Culture - Preliminary Peripheral Venipuncture No growth. 08/19/16 15:00 Catheter Tip Culture - Preliminary Intravenous or Arterial Cath No growth. 08/19/16 15:00 Catheter Tip Culture - Preliminary Intravenous or Arterial Cath No growth. - Impressions Impressions Guidance Needle Placement Ultrasound 08/21/16 00:00 IMPRESSION: Successful ultrasound guided non-tunneled right jugular hemodialysis catheter placement. D/ / Ruthann Boss MD / Ruthann Boss MD Interpreting Provider: Ruthann Boss MD Insertion Non-Tunneled Catheter 08/21/16 00:00 IMPRESSION: Successful ultrasound guided non-tunneled right jugular hemodialysis catheter placement. D/ / Ruthann Boss MD / Ruthann Boss MD Interpreting Provider: Ruthann Boss MD Chest X-Ray 08/21/16 13:03 IMPRESSION: Right internal jugular central venous catheter tip projects over the cavoatrial junction. No pneumothorax. D/ / 08/21/2016 13:27:45 Licha Hayes MD / [email or web address] Interpreting Provider: Licha Hayes MD Exam - Constitutional Vitals: Temp Pulse Resp BP Pulse Ox 98.3 F 87 17 102/64 97 08/22/16 08:17 08/22/16 09:15 08/22/16 09:15 08/22/16 09:15 08/22/16 09:50 General appearance: average body habitus, cooperative, no acute distress - Head Head exam: Present: atraumatic, normal inspection, normocephalic - Eye Eye exam: Present: EOMI, normal appearance, PERRL Pupils: Present: normal accommodation - ENT ENT exam: Present: mucous membranes dry - Neck Neck exam: Present: normal inspection Additional comments: Tracheostomy midline with O2 via trach mask. Small amount of clear sputum noted from trach. TDC noted to the right neck with transparent dressing C/D/I. - Respiratory Respiratory exam: Present: rhonchi (Coarse, throughout). Absent: rales, respiratory distress, wheezes - Cardiovascular Cardiovascular exam: Present: RRR, +S1, +S2 - GI/Abdominal GI/Abdominal exam: Present: normal bowel sounds, soft, tenderness (generalized) . Absent: distended Additional comments: Ileostomy noted to the RLQ with small amount of dark brown liquid stool. - Extremities Exam Extremities exam: Present: normal inspection. Absent: joint swelling, pedal edema, tenderness - Neurological Exam Neurological exam: Present: alert, oriented X3, no focal deficits - Psychiatric Psychiatric exam: Present: normal affect, normal mood - Skin Skin exam: Present: dry, intact, normal color, warm - Additional findings Additional findings: Small amount of vaginal bleeding noted. - VTE Reasons for not Prescribing Prophylaxis: Not indicated-Anticoagulated or INR therapeutic Consult Discharge Plan - Plan Referrals: NO,PCP [Primary Care Provider] -
--- NOTE | 2016-08-22 10:23 | Nephrology Progress Note ---
Date of Encounter: 08/22/16 Time of Encounter: 09:30 - Assessment and Plan (1) ESRD (end stage renal disease) on dialysis Current Visit: Yes Status: Chronic Had new tunneled dialysis catheter placed yesterday by IR, followed with HD. No HD today. Subjective Principal diagnosis: Severe sepsis Interval history: Trach> vent. Alert. Crying, obviously upset. Nursing staff states patient desires to be DNRCC, but patients family intervening with patient wishes saying she is confused. Objective - Vital Signs Vital signs: Vital Signs Temp Pulse Resp BP Pulse Ox 08/22/16 09:50 97 08/22/16 09:15 87 17 102/64 96 08/22/16 08:17 98.3 F 08/22/16 08:00 96 17 115/74 95 08/22/16 07:51 23 118/75 95 08/22/16 07:00 110 17 148/91 95 08/22/16 06:08 69 15 97/55 93 L 08/22/16 05:29 15 93 L 08/22/16 05:09 99.8 F H 08/22/16 04:20 80 12 115/73 95 08/22/16 03:20 16 95 08/22/16 03:00 84 15 122/88 95 08/22/16 02:11 74 15 93/64 97 08/22/16 01:00 82 14 98/65 96 08/22/16 00:36 100.1 F H 08/22/16 00:00 92 14 107/64 94 L 08/21/16 23:31 18 93 L 08/21/16 23:00 74 14 91/58 95 08/21/16 22:00 81 13 95/60 95 08/21/16 21:19 13 94 L 08/21/16 21:10 80 21 103/71 93 L 08/21/16 20:53 81 08/21/16 20:30 98.4 F 08/21/16 20:00 67 22 89/55 94 L 08/21/16 19:15 63 18 82/42 94 L 08/21/16 18:26 20 98 08/21/16 18:05 98.3 F 20 99/51 08/21/16 18:00 80 20 91/45 98 08/21/16 17:45 100/61 08/21/16 17:30 97/52 08/21/16 17:15 104/58 08/21/16 17:00 72 16 99/57 98 08/21/16 16:45 101/66 08/21/16 16:30 114/71 08/21/16 16:19 71 16 98/50 98 08/21/16 16:15 105/77 08/21/16 16:00 98/50 08/21/16 15:45 104/55 08/21/16 15:30 106/67 08/21/16 15:15 97.3 F L 08/21/16 15:12 106/63 08/21/16 15:00 58 16 101/55 95 08/21/16 14:45 115/81 08/21/16 14:30 98.9 F 22 109/73 08/21/16 14:20 16 172/88 95 08/21/16 14:00 68 16 105/59 95 08/21/16 13:00 79 16 109/63 95 08/21/16 12:00 98.0 F 78 16 119/74 95 08/21/16 11:00 75 13 108/66 97 08/21/16 10:43 13 104/59 97 Intake and Output 08/21/16 08/22/16 08/22/16 23:59 07:59 15:59 Intake Total 220 / 220 150 / 150 240 / 240 Output Total 100 / 100 175 / 175 Balance 120 / 120 -25 / -25 240 / 240 Intake: IV Fluids 100 / 100 100 / 100 Flagyl 500 MG/100 ML 500 100 / 100 100 / 100 mg In 100 ml @ 100 mls/hr IVPB Q8HR [facility] Rx#: [id number] Oral 120 / 120 50 / 50 240 / 240 Output: Urine 0 / 0 Stool 100 / 100 175 / 175 Total Dialysis Output 0 / 0 Other: Meal Breakfast Percent of Meal Consumed 0% Weight 93.3 kg Blood Glucose* 67 76 Hemodialysis Net Fluid 1000 Removed (mL) Patient Weight 08/22/16 23:59 Weight 93.3 kg - General Appearance General appearance: Present: chronically ill, frail EENT: Present: mucous membranes moist Neck: Present: no JVD Respiratory: Present: rhonchi Cardiology: Present: no edema, irregular rhythm Gastrointestinal: Present: hypoactive bowel sounds, no tenderness Integumentary: Present: warm and dry Psychiatric: Present: mood/affect appropriate, cooperative - Lab 08/22/16 04:13 08/22/16 04:13 Most recent lab results ABG pH 7.40 pH Units (7.32-7.45) 08/17/16 04:53 ABG pCO2 39 mmHg (35-45) 08/17/16 04:53 ABG pO2 74 mmHg (85-104) L 08/17/16 04:53 ABG HCO3 24.2 mEQ/L (21-27) 08/17/16 04:53 ABG O2 Saturation 95 % (95-98) 08/17/16 04:53 Calcium 9.5 mg/dL (8.6-10.8) 08/22/16 04:13 Phosphorus 2.6 mg/dL (2.3-4.7) 08/16/16 19:27 Magnesium 1.8 mg/dL (1.6-2.6) 08/17/16 02:14 - VTE Reasons for not Prescribing Prophylaxis: Not indicated-Anticoagulated or INR therapeutic Consult Discharge Plan - Plan Referrals: NO,PCP [Primary Care Provider] -
[2016-08-22] MEDS ORDERED: Acetaminophen 325 MG TABLET PO PRN (14:02)
[2016-08-22] MEDS ORDERED: *HR* Alteplase (Cathflo) 2 MG VIAL IVP PRN (14:02)
[2016-08-22] MEDS ORDERED: Haloperidol Lactate 5 MG/ML VIAL IVP PRN (14:02)
[2016-08-22] MEDS ORDERED: *HR* LORazepam 2 MG/ML VIAL IVP PRN (14:02)
[2016-08-22] MEDS ORDERED: *HR* Dextrose 50 % in Water (Syg) 50 ML SYRINGE IVP PRN (14:02)
[2016-08-22] MEDS ORDERED: Naloxone 0.4 MG/ML INJ IVP PRN (14:02)
[2016-08-22] MEDS ORDERED: Dextrose Gel 15 GM PO PRN ×2 (14:02)
[2016-08-22] MEDS ORDERED: Ipratropium/Albuterol Neb 3 ML IH PRN (14:02)
[2016-08-22] MEDS ORDERED: Ondansetron 4 MG/2 ML VIAL IVP PRN (14:02)
[2016-08-22] MEDS: *HR* OxyCODONE Immed Rel 5 MG TABLET PO PRN (21:19)
[2016-08-23 04:23] LABS: Basophils % 0.3 %; Eosinophils # 0.3 K/mcL (0.0-0.6); Eosinophils % 3.4 %; Hemoglobin 8.5 g/dL (11.5-15.4); Immature Granulocytes % 0.9 % (0-4); Lymphocytes # 1.3 K/mcL (0.6-4.6); Lymphocytes % 16.8 %; Mean Corpuscular HGB Conc 29.3 g/dL (31.6-35.5); Mean Corpuscular Hemoglobin 27.7 pg (28.0-33.3); Mean Corpuscular Volume 94.5 fL (83.0-100.0); Mean Platelet Volume 9.9 fL (9.4-12.4); Monocytes # 0.6 K/mcL (0.0-1.3); Monocytes % 7.2 %; Neutrophils # 5.6 K/mcL (1.6-8.9); Platelet Count 189 K/mcL (140-400); Red Blood Count 3.07 M/mcL (3.82-4.97); Red Cell Distribution Width 16.6 % (11.5-14.5); Segmented Neutrophils % 71.4 %
[2016-08-23 04:52] LABS: Calcium 10.2 mg/dL (8.6-10.8); Potassium 4.4 mEq/L (3.5-4.5)
[2016-08-23] MEDS: *HR* Heparin 5,000 UNIT/ML VIAL SQ SCH ×2 (05:33→14:38)
[2016-08-23] MEDS: MetroNIDAZOLE 500 MG/100 ML 500 MG/100 ML BAG IVPB SCH ×2 (08:03→15:02)
--- NOTE | 2016-08-23 08:29 | Nephrology Progress Note ---
Date of Encounter: 08/23/16 Time of Encounter: 08:05 - Assessment and Plan (1) ESRD (end stage renal disease) on dialysis Current Visit: Yes Status: Chronic HD today. Orders given. Subjective Principal diagnosis: Severe sepsis Interval history: Trach> vent. Alert. Smiling today. Objective - Vital Signs Vital signs: Vital Signs Temp Pulse Resp BP Pulse Ox 08/23/16 08:20 97.8 F 08/23/16 07:48 12 98 08/23/16 05:06 98.6 F 08/23/16 04:17 12 98 08/23/16 04:10 76 12 113/69 97 08/23/16 02:00 77 12 101/63 97 08/23/16 00:27 98.6 F 08/23/16 00:15 75 12 104/68 98 08/22/16 23:35 12 94 L 08/22/16 23:30 76 08/22/16 20:07 16 100 08/22/16 20:00 99.0 F 77 23 105/66 96 08/22/16 18:13 77 12 93/66 97 08/22/16 17:35 13 100/63 91 L 08/22/16 16:02 99/65 08/22/16 16:01 98.7 F 08/22/16 16:00 98.7 F 68 12 99/65 97 08/22/16 15:17 12 93/62 97 08/22/16 14:00 79 20 84/59 97 08/22/16 13:05 12 96/61 93 L 08/22/16 13:00 94 20 110/66 94 L 08/22/16 12:00 98.9 F 95 20 132/80 93 L 08/22/16 11:59 98.9 F 08/22/16 11:00 95 20 118/83 93 L 08/22/16 10:00 96 20 129/87 94 L 08/22/16 09:50 97 08/22/16 09:15 87 17 102/64 96 Intake and Output 08/22/16 08/23/16 08/23/16 23:59 07:59 15:59 Intake Total 130 / 130 100 / 100 Output Total 50 / 50 425 / 425 250 / 250 Balance 80 / 80 -325 / -325 -250 / -250 Intake: IV Fluids 100 / 100 100 / 100 Flagyl 500 MG/100 ML 500 100 / 100 100 / 100 mg In 100 ml @ 100 mls/hr IVPB Q8HR [facility] Rx#: [id number] Oral 30 / 30 Output: Stool 50 / 50 425 / 425 250 / 250 Other: Meal snack Percent of Meal Consumed 100% Weight 93.2 kg Blood Glucose* 68 59 66 Patient Weight 08/23/16 23:59 Weight 93.2 kg - General Appearance General appearance: Present: chronically ill EENT: Present: mucous membranes moist Neck: Present: no JVD Respiratory: Present: rhonchi Cardiology: Present: no edema, irregular rhythm Gastrointestinal: Present: normoactive bowel sounds, no tenderness Integumentary: Present: warm and dry Psychiatric: Present: mood/affect appropriate, cooperative - Lab 08/23/16 04:07 08/23/16 04:07 Most recent lab results ABG pH 7.40 pH Units (7.32-7.45) 08/17/16 04:53 ABG pCO2 39 mmHg (35-45) 08/17/16 04:53 ABG pO2 74 mmHg (85-104) L 08/17/16 04:53 ABG HCO3 24.2 mEQ/L (21-27) 08/17/16 04:53 ABG O2 Saturation 95 % (95-98) 08/17/16 04:53 Calcium 10.2 mg/dL (8.6-10.8) 08/23/16 04:07 Phosphorus 2.6 mg/dL (2.3-4.7) 08/16/16 19:27 Magnesium 1.8 mg/dL (1.6-2.6) 08/17/16 02:14 - VTE Reasons for not Prescribing Prophylaxis: Not indicated-Anticoagulated or INR therapeutic Consult Discharge Plan - Plan Referrals: NO,PCP [Primary Care Provider] -
[2016-08-23] MEDS ORDERED: Pantoprazole 40 MG VIAL IVP SCH (09:00)
[2016-08-23] MEDS ORDERED: 0.9 % Sodium Chloride 250 ML IVC PRN (09:46)
[2016-08-23] MEDS ORDERED: *HR* Heparin 10,000 UNIT/10 ML VIAL IV PRN (09:46)
[2016-08-23] MEDS ORDERED: 0.9 % Sodium Chloride 1,000 ML PRIME SCH (10:00)
[2016-08-23] MEDS: ALPRAZolam 0.5 MG TABLET PO PRN ×2 (10:23→19:28)
[2016-08-23] MEDS ORDERED: Aspirin Enteric Coated 81 MG Tablet PO SCH (10:45)
--- NOTE | 2016-08-23 11:55 | Discharge Summary ---
<Navi Sanz - Last Filed: 08/23/16 13:29> Date of Encounter: 08/23/16 Time of Encounter: 11:47 - Discharge Diagnosis (1) Severe sepsis Priority: Primary Status: Resolved (2) Bacteremia Priority: Secondary Status: Acute (3) Major depression Priority: Secondary Status: Acute Qualifiers: Major depression recurrence: recurrent Active/Remission status: currently active Major depression episode severity: severe Psychotic features: without psychotic features Qualified Code(s): F33.2 - Major depressive disorder, recurrent severe without psychotic features (4) Counseling regarding goals of care Priority: Secondary Status: Acute (5) 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 Priority: Secondary Status: Chronic (6) Acute encephalopathy Priority: Secondary Status: Resolved (7) ESRD (end stage renal disease) on dialysis Priority: Secondary Status: Chronic (8) Chronic respiratory failure Priority: Secondary Status: Chronic Qualifiers: Respiratory failure complication: hypoxia Qualified Code(s): J96.11 - Chronic respiratory failure with hypoxia (9) DVT prophylaxis Priority: Secondary Status: Acute (10) History of heart valve replacement with mechanical valve Priority: Secondary Status: Chronic (11) Vaginal bleeding, abnormal Priority: Secondary Status: Acute (12) Atrial fibrillation Priority: Secondary Status: Acute Qualifiers: Atrial fibrillation type: chronic Qualified Code(s): I48.2 - Chronic atrial fibrillation - Discharge Medications Prescriptions: Aspirin Enteric Coated [Aspirin EC] 81 mg PO DAILY #30 tablet. Cefdinir [Omnicef] 300 mg PO BID #28 capsule MetroNIDAZOLE [Flagyl] 500 mg PO TID #42 tablet Sertraline [Zoloft] 100 mg PO DAILY #30 tablet Home Medications: Alprazolam [Xanax 0.25 MG Tablet] 0.25 mg PO Q6H PRN 08/16/16 [History] Atorvastatin Calcium [Lipitor] 20 mg PO HS 08/16/16 [History] Calcitonin-Langford, Synthetic [Miacalcin] 400 unit SQ Q12H 08/16/16 [History] Cyanocobalamin (Vitamin B-12) [Vitamin B-12] 100 mcg PO DAILY 08/16/16 [History] Famotidine [Heartburn Prevention] 20 mg PO Q12H 08/16/16 [History] Folic Acid 1 mg PO DAILY 08/16/16 [History] Ipratropium/Albuterol Neb [Duoneb] 3 ml IH Q4H PRN 08/16/16 [History] Ipratropium/Albuterol Neb [Duoneb] 3 ml IH Q6H 08/16/16 [History] Isosorbide DInitrate [Isosorbide Dinitrate] 5 mg PO Q12H 08/16/16 [History] Levothyroxine [Synthroid] 150 mcg PO QAM 08/16/16 [History] Magnesium Oxide [Mag-Ox] 400 mg PO Q12H 08/16/16 [History] Metoprolol [Lopressor] 25 mg PO DAILY 08/16/16 [History] Multivitamin [Multi-Day Vitamins] 1 each PO DAILY 08/16/16 [History] Ondansetron HCl [Zofran] 4 mg PO Q4H PRN 08/16/16 [History] Oxycodone HCl 10 mg PO Q3H PRN 08/16/16 [History] Terbinafine HCl [Lamisil] 1 appl TP BID 08/16/16 [History] Zolpidem [Ambien] 5 mg PO HS 08/16/16 [History] Aspirin Enteric Coated [Aspirin EC] 81 mg PO DAILY #30 tablet. 08/23/16 [Rx] Cefdinir [Omnicef] 300 mg PO BID #28 capsule 08/23/16 [Rx] MetroNIDAZOLE [Flagyl] 500 mg PO TID #42 tablet 08/23/16 [Rx] Sertraline [Zoloft] 100 mg PO DAILY #30 tablet 08/23/16 [Rx] Allergies/Adverse Reactions: Allergies codeine Allergy (Verified 08/16/16 19:07) Hives Hydromorphone Allergy (Verified 08/16/16 19:09) Hives Iodinated Contrast Media - Oral and Allergy (Verified 08/16/16 19:10) Hives Penicillins Allergy (Verified 08/16/16 19:09) Hives povidone-iodine Allergy (Verified 08/16/16 19:10) Hives Labs on day of discharge: Labs from last 24 hours 08/23/16 08/23/16 08/22/16 04:07 04:07 23:54 WBC 7.9 RBC 3.07 L Hgb 8.5 L Hct 29.0 L MCV 94.5 MCH 27.7 L MCHC 29.3 L RDW 16.6 H Plt Count 189 MPV 9.9 Immature Gran % 0.9 Seg Neutrophils % 71.4 Lymphocytes % 16.8 Monocytes % 7.2 Eosinophils % 3.4 Basophils % 0.3 Neutrophils # 5.6 Lymphocytes # 1.3 Monocytes # 0.6 Eosinophils # 0.3 Basophils # 0.0 Sodium 142 Potassium 4.4 Chloride 107 Carbon Dioxide 26 BUN 17 Creatinine 3.73 H Est GFR ( Amer) 15 L Est GFR (Non-Af Amer) 12 L BUN/Creatinine Ratio 5 L Glucose 60 L POC Glucose 67 Calculated Osmolality 293 Calcium 10.2 08/22/16 08/22/16 08/22/16 19:44 15:31 15:29 WBC RBC Hgb Hct MCV MCH MCHC RDW Plt Count MPV Immature Gran % Seg Neutrophils % Lymphocytes % Monocytes % Eosinophils % Basophils % Neutrophils # Lymphocytes # Monocytes # Eosinophils # Basophils # Sodium Potassium Chloride Carbon Dioxide BUN Creatinine Est GFR ( Amer) Est GFR (Non-Af Amer) BUN/Creatinine Ratio Glucose POC Glucose 68 73 65 Calculated Osmolality Calcium 08/22/16 08/22/16 08/22/16 11:03 06:07 04:38 WBC RBC Hgb Hct MCV MCH MCHC RDW Plt Count MPV Immature Gran % Seg Neutrophils % Lymphocytes % Monocytes % Eosinophils % Basophils % Neutrophils # Lymphocytes # Monocytes # Eosinophils # Basophils # Sodium Potassium Chloride Carbon Dioxide BUN Creatinine Est GFR ( Amer) Est GFR (Non-Af Amer) BUN/Creatinine Ratio Glucose POC Glucose 89 75 62 Calculated Osmolality Calcium Preliminary micro results at discharge 08/21/16 11:10 Blood Culture - Preliminary Peripheral Venipuncture No growth. 08/21/16 11:10 Blood Culture - Preliminary Peripheral Venipuncture No growth. 08/21/16 12:10 Blood Culture - Preliminary Peripheral Venipuncture No growth. - Impressions ITS Impressions Chest X-Ray 08/17/16 08:50 IMPRESSION: Mild vascular congestion. Moderate asymmetric airspace disease left lower lobe and possible effusion, changed. D/ / Dionicio Woods MD / Dionicio Woods MD Interpreting Provider: Dionicio Woods MD Insertion Tunneled Catheter 08/19/16 00:00 IMPRESSION: Successful removal of two tunneled catheters. D/ / 08/19/2016 16:11:24 Ruthann Boss MD / omi Interpreting Provider: Ruthann Boss MD Abdomen/Pelvis CT 08/19/16 08:45 IMPRESSION: 1. No evidence for abscess formation. 2. Pulmonary edema with pleural effusions suggests congestive heart failure. 3. Coronary artery disease. 4. Mild aneurysmal dilation of the ascending aorta at 4.7 cm. 5. Bilateral lower lobe atelectasis or pneumonia. 6. Nutmeg liver can be caused by Budd-Chiari syndrome or right heart failure. 7. Splenomegaly. 8. Cholelithiasis or biliary sludge. No definite evidence for acute cholecystitis is identified. 9. Subtotal colectomy with sigmoid diverticulosis. Diverticulitis cannot be entirely excluded due to the presence of inflammation in the pelvis. 10. Bladder wall thickening is consistent with cystitis. 11. Diffuse osteosclerosis likely represents renal osteodystrophy. D/ / Rui Cunningham MD / Rui Cunningham MD Interpreting Provider: Rui Cunningham MD Chest CT 08/19/16 08:45 IMPRESSION: 1. No evidence for abscess formation. 2. Pulmonary edema with pleural effusions suggests congestive heart failure. 3. Coronary artery disease. 4. Mild aneurysmal dilation of the ascending aorta at 4.7 cm. 5. Bilateral lower lobe atelectasis or pneumonia. 6. Nutmeg liver can be caused by Budd-Chiari syndrome or right heart failure. 7. Splenomegaly. 8. Cholelithiasis or biliary sludge. No definite evidence for acute cholecystitis is identified. 9. Subtotal colectomy with sigmoid diverticulosis. Diverticulitis cannot be entirely excluded due to the presence of inflammation in the pelvis. 10. Bladder wall thickening is consistent with cystitis. 11. Diffuse osteosclerosis likely represents renal osteodystrophy. D/ / Rui Cunningham MD / Rui Cunningham MD Interpreting Provider: Rui Cunningham MD Transvaginal US 08/19/16 14:25 IMPRESSION: Mild endometrial stripe thickening. Ovaries not seen Possible filling defects in the bladder. Correlate with urinalysis. D/ / Samir Marsh MD / Samir Marsh MD Interpreting Provider: Samir Marsh MD Guidance Needle Placement Ultrasound 08/21/16 00:00 IMPRESSION: Successful ultrasound guided non-tunneled right jugular hemodialysis catheter placement. D/ / Ruthann Boss MD / Ruthann Boss MD Interpreting Provider: Ruthann Boss MD Insertion Non-Tunneled Catheter 08/21/16 00:00 IMPRESSION: Successful ultrasound guided non-tunneled right jugular hemodialysis catheter placement. D/ / Ruthann Boss MD / Ruthann Boss MD Interpreting Provider: Ruthann Boss MD Chest X-Ray 08/21/16 13:03 IMPRESSION: Right internal jugular central venous catheter tip projects over the cavoatrial junction. No pneumothorax. D/ / 08/21/2016 13:27:45 Licha Hayes MD / bcarter Interpreting Provider: Licha Hayes MD Date of admission: 08/17/16 00:45 Primary care physician: PCP NO Consults: 08/17/16 08:33 Consult to Nephrology [CONS] Routine Consulting Provider: Kidney & HTN Spclst LEENA Reason for Consult: ESRD, bacteremia Call Completed: No 08/17/16 08:49 Consult to Infectious Diseases [CONS] Routine Consulting Provider: Infectious Disease Minnie Reason for Consult: Bacteremia, mechanical heart valve, end-stage renal disease with tunneled catheter Call Completed: No 08/19/16 09:00 Consult to Dialysis [CONS] ONCE 08/19/16 14:22 Consult to CAN DRAGGER [CONS] Routine Consulting Provider: HAT DESIGNER Minnie Reason for Consult: blody vaginal discharge Call Completed: Yes 08/21/16 08:25 Consult to Psychiatry [CONS] Routine Consulting Provider: Psychiatry Minnie Reason for Consult: Need evaluation of mental status and capacity. Patient was admitted for sepsis from bacteremia. She has a tracheostomy and has ESRD. Patient in the past 24-48 hours started refusing care. She started having visual hallucinations of people dying. It is very difficult to communicate with her due to having a tracheostomy. Call Completed: Yes 08/21/16 09:00 Consult to Dialysis [CONS] ONCE 08/21/16 10:54 Consult to Palliative Care [CONS] Routine Comment: Consulting Provider: Palliative Care Minnie 08/22/16 11:11 Consult to Speech Therapy [CONS] Routine Comment: Evaluate, develop and implement POC Reason for Consult: patient needs a passimier. chronic trach. on trach mask Time Notified: 11:13 Call Completed: No 08/23/16 10:00 Consult to Dialysis [CONS] ONCE 08/23/16 11:14 Consult to Interventional Radiology [CONS] Routine Consulting Provider: Radiology Interventional Cols Reason for Consult: Patient has TDC needs a new tunneled dialysis catheter. Call Completed: Yes Discharging clinician: Navi Sanz Anticipated date of discharge: 08/23/16 - Patient Status Disposition: Transfer SNF Condition: Fair Functional capacity at discharge: wheelchair bound Overall status at discharge: patient is progressing back to baseline - Discharge Instructions Follow Up With: NO,PCP [Primary Care Provider] - Lonodn Devi MD [Partnered Physician] - (mild endometrial thickening on pelvic US and vaginal bleeding. ) - Diet and Activity Activity: wear oxygen at all times, other (trach collor: on O2 28%) Diet: other (renal diet, mechanically altered diet ground meat, ensure with lunch and dinner) - Hospital Course Hospital course: [place] 61F with history of end-stage renal disease, chronic respiratory failure with tracheostomy, tissue aortic valve and mitral valve replacement, status post cecal perforation went underwent right hemicolectomy and has a ileostomy. Patient presented from ECF with encephalopathy, positive blood cultures for Proteus and gram-positive cocci possibly anaerobic in origin. She was originally started on invanz at her ECF. She met criteria for sepsis due to presentation with tachycardia and hypotension. Source was thought to be from dialysis catheter, PICC line, pneumonia. Pateint was started on vancomycin, meropenem, Flagyl. Infectious diseases consultation for recommendations. Sputum culture grew out usars-gann-[id number] acinetobacter which was considered to be conlonization as patient did not exhibit any clinical evidence of pneumonia. Standard precautions were put in place. Patient was transitioned to meropenem for coverage of Proteus and gram-positive cocci anaerobic. Patients PICC line and dialysis catheter was removed and new blood cultures were taken. Peripheral and catether tip cultures negative. She under went dialysis after placement of THD which was then removed after 2nd set of blood cultures were negative and a new tunneled dialysis catheter was placed by IR. She was then transitioned to ceftriaxone IV and metronidazole IV. At discharge patient is on cefdinir and metronidazole PO which she will take for additional 14 days. Patient also had vaginal discharge and gynecology was consulted for further evaluation. Transvaginal US shows 5mm endometrial thickening. She should follow up outpatient with prepress supervisor for further evaluation. Outpatient appointment will be setup before discharge. On day 3 of admission patient became agitated and started refusing all care. She refused tracheostomy care, medications, dialysis, baths. Family was contacted to update them on patient saturation. However family could not visit patient due to work and lived 3 hours from facility. This continued for 48 hours. Patient was awake and alert for the entire time, however stated she was "seeing people dying in the room". Psych was consulted and said patient has capacity. This may be exacerbation of major depression. We increased dose of sertraline to 100mg daily. Patient mental status improved and her agitation resolved. She started accepting medical care including dialysis. Palliative also saw patient determined would like to be full code. Patients power of banking attorney is her daughter and aunt. Furthermore, patient was weaned off ventilator and is on trach color with passy- mason. She requires O2 of 5L. Patient has hx of extensive stay at [facility] last year which is summarized below for her records: Last year patient had a extended admission at [facility]. Has hx of AVR and MVR in 2011. She was admitted to [facility] on 01/22/16 open heart surgery service for severe dyspnea and exertion secondary to aortic valve stenosis. 01/31/2016 patient underwent redo sternotomy, aortic root enlargement with pericardial patch, tissue AVR, and tissue MVR. Post operative the patient went into cardiogenic shock, respiratory insufficiency requiring prolonged mechanical ventilation and had a tracheostomy done on 02/14, new onset atrial fibrillation. On 03/03/16 patient was found to have pneumatosis and bowel perforation on CT abdomen and pelvis. Surgical intervention found ischemic colitis and cecal perforation. She underwent right hemicolectomy and abthera was placed. On 03/05/16 patient returned to the OR for washout, mucous fistula, and ileostomy. Postoperative course was complicated by respiratory failure, CRRT need, ileus, spetic shock, anemia limiting anticoagulation and a flutter. Patient was discharged to an LTACH for ongoing vent weaning. Her atrial fibrillation was controlled on digoxin and amiodarone and anticoagulated by aspirin and prophylactic heparin. For atrial fibrillation patient is rate controlled on metoprolol and anticoagulated with aspirin. [id number] score is 4 however due to multiple commodities she is not a candidate for warfarin or NOACs. She has hx of anemia, and ESRD. Today patient has good oral intake, vital signs are stable, she is awake and alert. She is having good output via colostomy. She should continue her regular dialysis schedule MWF. Patient is ready for discharge. Patient will be dischared to [place], however plan is then to be transferred from [place] to a F closer to home. - Time Spent with Patient Total time spent providing and/or coordinating discharge services: Physical Examination Vital Signs: Vital Signs, Last 4 Hours Temp Pulse Resp BP Pulse Ox 08/23/16 11:00 21 98 08/23/16 10:00 78 15 118/79 96 08/23/16 08:20 97.8 F 08/23/16 08:00 76 16 121/78 98 08/23/16 07:48 12 98 General appearance: no acute distress, alert Eyes: nonicteric ENT: oropharynx moist Neck: other (tracheostomy ) Effort: normal Auscultation: bilateral: clear Cardiovascular: irregular rhythm (afib ) Gastrointestinal: normoactive bowel sounds, soft, non-tender, other (colostomy bag outputting ) Integumentary: decubitus ulcer (stage 1 well dressed ), other (midline abdominal scar from previous surgery) Extremities: no cyanosis, no edema, no clubbing, pulses normal Musculoskeletal: no deformities Gait: other (bed bound) normal mental status depressed - VTE Reasons for not Prescribing Prophylaxis: Not indicated-Anticoagulated or INR therapeutic <JacklynJonathon Suzy - Last Filed: 08/23/16 16:48> Labs on day of discharge: Labs from last 24 hours 08/23/16 08/23/16 08/22/16 04:07 04:07 23:54 WBC 7.9 RBC 3.07 L Hgb 8.5 L Hct 29.0 L MCV 94.5 MCH 27.7 L MCHC 29.3 L RDW 16.6 H Plt Count 189 MPV 9.9 Immature Gran % 0.9 Seg Neutrophils % 71.4 Lymphocytes % 16.8 Monocytes % 7.2 Eosinophils % 3.4 Basophils % 0.3 Neutrophils # 5.6 Lymphocytes # 1.3 Monocytes # 0.6 Eosinophils # 0.3 Basophils # 0.0 Sodium 142 Potassium 4.4 Chloride 107 Carbon Dioxide 26 BUN 17 Creatinine 3.73 H Est GFR ( Amer) 15 L Est GFR (Non-Af Amer) 12 L BUN/Creatinine Ratio 5 L Glucose 60 L POC Glucose 67 Calculated Osmolality 293 Calcium 10.2 08/22/16 08/22/16 08/22/16 19:44 15:31 15:29 WBC RBC Hgb Hct MCV MCH MCHC RDW Plt Count MPV Immature Gran % Seg Neutrophils % Lymphocytes % Monocytes % Eosinophils % Basophils % Neutrophils # Lymphocytes # Monocytes # Eosinophils # Basophils # Sodium Potassium Chloride Carbon Dioxide BUN Creatinine Est GFR ( Amer) Est GFR (Non-Af Amer) BUN/Creatinine Ratio Glucose POC Glucose 68 73 65 Calculated Osmolality Calcium 08/22/16 08/22/16 08/22/16 11:03 06:07 04:38 WBC RBC Hgb Hct MCV MCH MCHC RDW Plt Count MPV Immature Gran % Seg Neutrophils % Lymphocytes % Monocytes % Eosinophils % Basophils % Neutrophils # Lymphocytes # Monocytes # Eosinophils # Basophils # Sodium Potassium Chloride Carbon Dioxide BUN Creatinine Est GFR ( Amer) Est GFR (Non-Af Amer) BUN/Creatinine Ratio Glucose POC Glucose 89 75 62 Calculated Osmolality Calcium Preliminary micro results at discharge 08/21/16 11:10 Blood Culture - Preliminary Peripheral Venipuncture No growth. 08/21/16 11:10 Blood Culture - Preliminary Peripheral Venipuncture No growth. 08/21/16 12:10 Blood Culture - Preliminary Peripheral Venipuncture No growth. - Impressions ITS Impressions Chest X-Ray 08/17/16 08:50 IMPRESSION: Mild vascular congestion. Moderate asymmetric airspace disease left lower lobe and possible effusion, changed. D/ / Dionicio Woods MD / Dionicio Woods MD Interpreting Provider: Dionicio Woods MD Insertion Tunneled Catheter 08/19/16 00:00 IMPRESSION: Successful removal of two tunneled catheters. D/ / 08/19/2016 16:11:24 Ruthann Boss MD / omi Interpreting Provider: Ruthann Boss MD Abdomen/Pelvis CT 08/19/16 08:45 IMPRESSION: 1. No evidence for abscess formation. 2. Pulmonary edema with pleural effusions suggests congestive heart failure. 3. Coronary artery disease. 4. Mild aneurysmal dilation of the ascending aorta at 4.7 cm. 5. Bilateral lower lobe atelectasis or pneumonia. 6. Nutmeg liver can be caused by Budd-Chiari syndrome or right heart failure. 7. Splenomegaly. 8. Cholelithiasis or biliary sludge. No definite evidence for acute cholecystitis is identified. 9. Subtotal colectomy with sigmoid diverticulosis. Diverticulitis cannot be entirely excluded due to the presence of inflammation in the pelvis. 10. Bladder wall thickening is consistent with cystitis. 11. Diffuse osteosclerosis likely represents renal osteodystrophy. D/ / Rui Cunningham MD / Rui Cunningham MD Interpreting Provider: Rui Cunningham MD Chest CT 08/19/16 08:45 IMPRESSION: 1. No evidence for abscess formation. 2. Pulmonary edema with pleural effusions suggests congestive heart failure. 3. Coronary artery disease. 4. Mild aneurysmal dilation of the ascending aorta at 4.7 cm. 5. Bilateral lower lobe atelectasis or pneumonia. 6. Nutmeg liver can be caused by Budd-Chiari syndrome or right heart failure. 7. Splenomegaly. 8. Cholelithiasis or biliary sludge. No definite evidence for acute cholecystitis is identified. 9. Subtotal colectomy with sigmoid diverticulosis. Diverticulitis cannot be entirely excluded due to the presence of inflammation in the pelvis. 10. Bladder wall thickening is consistent with cystitis. 11. Diffuse osteosclerosis likely represents renal osteodystrophy. D/ / Rui Cunningham MD / Rui Cunningham MD Interpreting Provider: Rui Cunningham MD Transvaginal US 08/19/16 14:25 IMPRESSION: Mild endometrial stripe thickening. Ovaries not seen Possible filling defects in the bladder. Correlate with urinalysis. D/ / Samir Marsh MD / Samir Marsh MD Interpreting Provider: Samir Marsh MD Guidance Needle Placement Ultrasound 08/21/16 00:00 IMPRESSION: Successful ultrasound guided non-tunneled right jugular hemodialysis catheter placement. D/ / Ruthann Boss MD / Ruthann Boss MD Interpreting Provider: Ruthann Boss MD Insertion Non-Tunneled Catheter 08/21/16 00:00 IMPRESSION: Successful ultrasound guided non-tunneled right jugular hemodialysis catheter placement. D/ / Ruthann Boss MD / Ruthann Boss MD Interpreting Provider: Ruthann Boss MD Chest X-Ray 08/21/16 13:03 IMPRESSION: Right internal jugular central venous catheter tip projects over the cavoatrial junction. No pneumothorax. D/ / 08/21/2016 13:27:45 Licha Hayes MD / [email or web address] Interpreting Provider: Licha Hayes MD Guidance Needle Placement Ultrasound 08/23/16 00:00 IMPRESSION: Ultrasound and fluoroscopic guided placement of a tunneled right IJ hemodialysis catheter, which is appropriately positioned and ready for use. D/ / Jacob Singletary MD / Jacob Singletary MD Interpreting Provider: Jacob Singletary MD Insertion Tunneled Catheter 08/23/16 00:00 IMPRESSION: Ultrasound and fluoroscopic guided placement of a tunneled right IJ hemodialysis catheter, which is appropriately positioned and ready for use. D/ / Jacob Singletary MD / Jacob Singletary MD Interpreting Provider: Jacob Singletary MD Date of admission: 08/17/16 00:45 Primary care physician: PCP NO Consults: 08/17/16 08:33 Consult to Nephrology [CONS] Routine Consulting Provider: Kidney & HTN Spct LEENA Reason for Consult: ESRD, bacteremia Call Completed: No 08/17/16 08:49 Consult to Infectious Diseases [CONS] Routine Consulting Provider: Infectious Disease Minnie Reason for Consult: Bacteremia, mechanical heart valve, end-stage renal disease with tunneled catheter Call Completed: No 08/19/16 09:00 Consult to Dialysis [CONS] ONCE 08/19/16 14:22 Consult to CAN DRAGGER [CONS] Routine Consulting Provider: HAT DESIGNER [place] Reason for Consult: blody vaginal discharge Call Completed: Yes 08/21/16 08:25 Consult to Psychiatry [CONS] Routine Consulting Provider: Psychiatry Minnie Reason for Consult: Need evaluation of mental status and capacity. Patient was admitted for sepsis from bacteremia. She has a tracheostomy and has ESRD. Patient in the past 24-48 hours started refusing care. She started having visual hallucinations of people dying. It is very difficult to communicate with her due to having a tracheostomy. Call Completed: Yes 08/21/16 09:00 Consult to Dialysis [CONS] ONCE 08/21/16 10:54 Consult to Palliative Care [CONS] Routine Comment: Consulting Provider: Palliative Care Minnie 08/22/16 11:11 Consult to Speech Therapy [CONS] Routine Comment: Evaluate, develop and implement POC Reason for Consult: patient needs a passimier. chronic trach. on trach mask Time Notified: 11:13 Call Completed: No 08/23/16 10:00 Consult to Dialysis [CONS] ONCE 08/23/16 11:14 Consult to Interventional Radiology [CONS] Routine Consulting Provider: Radiology Interventional Cols Reason for Consult: Patient has TDC needs a new tunneled dialysis catheter. Call Completed: Yes - Hospital Course Hospital course: Ms. Lundy is a 61 year old female - Time Spent with Patient Total time spent providing and/or coordinating discharge services: Physical Examination Vital Signs: Vital Signs, Last 4 Hours Pulse Resp BP Pulse Ox 08/23/16 15:40 131/71 08/23/16 15:23 116 22 124/69 93 L 08/23/16 14:10 115 23 153/75 100 08/23/16 14:04 114 15 118/77 100 08/23/16 13:59 94 20 120/70 100 08/23/16 13:57 91 20 120/70 - Attending Attestation I examined this patient and my medical decision-making was reviewed with the TELEPHONE SERVICE ADVISER/PA/Advanced Practice Nurse/Resident Physician. I agree with the documented findings, disposition and treatment plan as described except to the extent set forth below. Since patient remained stable hemodynamically and it architect follow up in the long-term for dialysis as well as the catheter access for dialysis and patient cannot receive her antibiotics until she completed the course, patient can be discharged to the long-term. 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 Patient has severe depression and she is on treatment for that. She did well with weaning her off from the ventilator for a few hours and then will encourage to try in the long-term.
[2016-08-23] MEDS: *HR* OxyCODONE Immed Rel 5 MG TABLET PO PRN (12:49)
--- NOTE | 2016-08-23 12:50 | Infectious Disease Progress No ---
Date of Encounter: 08/23/16 Time of Encounter: 12:47 - Assessment and Plan (1) Severe sepsis Current Visit: Yes Status: Resolved The patient had three SIRS criteria plus encephalopathy on admission. She also had leukocytosis on labs drawn at the [facility]. Likely secondary to bacteremia. Improved. The patient has been afebrile x 48 hours. Tachycardia has resolved. WBC has normalized. Encephalopathy appears improved. Blood cultures drawn 08/13/16 at the [facility] were positive 1/2 sets for P. mirabilis (peripheral). Blood culture drawn from the patient's tunneled PICC line positive for GPC, likely anaerobe given the prolonged time it has taken to grow. Still awaiting final ID. Repeat blood cultures drawn 08/16/16 in the ED are negative (drawn peripherally) . Order submitted for blood cultures to be drawn 08/19/16 after line removal. Patient refused to allow staff to draw labs. She agreed to have labs drawn --> NGTD. (2) Bacteremia Current Visit: Yes Status: Acute Causative organism P. mirabilis and GPC (likely anaerobic). Source unclear --> pneumonia vs. tunneled PICC line or Permacath infection vs. other. Blood cultures drawn 08/13/16 at the [facility] were positive 1/2 sets for P. mirabilis (drawn peripherally). Blood culture drawn from the tunneled PICC was positive for GPC, likely anaerobic given the prolonged time it has taken to grow. Still awaiting final ID. Repeat blood cultures (drawn peripherally) 08/16/16 are negative. No cultures were drawn from the tunneled PICC line in the ED. Received Invanz and Vancomycin in the ED (started on 08/15/16 per [facility] staff). Review of the records from [facility] reveals the tunneled PICC line and Permacath were placed at [facility] in April. PICC line and Perma-cath removed 08/19/16. Blood cultures were ordered to be drawn after lines were removed. Patient refused, but then agreed to have them drawn 08/21/16 AM--> NGTD. Line tips were sent for culture and are negative. Continue Rocephin 2 grams IV daily. Give after HD on dialysis days. Will cover Proteus. Continue Flagyl 500mg IV TID for anaerobic coverage. Duration of treatment depends on the clinical picture, but likely 14 days from the first set of negative cultures. Can switch to oral Cefdinir and PO flagyl to complete the course of treatment when ready for discharge. Monitor renal function and for drug toxicity and dose-adjust antibiotics. (3) Acute encephalopathy Current Visit: Yes Status: Resolved Etiology likely secondary to sepsis. Concern for possible underlying mental illness given the patient's abrupt change in her mental status over the last 24 hours. Improved. The patient has become more compliant with her treatment regimen. Psych consulted to determine mental capacity. Await their findings. Unsure of the patient's baseline. Management per the primary team. 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 (6) ESRD (end stage renal disease) on dialysis Current Visit: Yes Status: Chronic Nephrology consulted and following. Perma-cath removed 08/19/16. TDC placed to the right IJ 08/21/16. (7) Chronic respiratory failure Current Visit: Yes Status: Chronic Status post tracheostomy in 2016. Off vent. O2 via trach mask. Management per the pulmonology team. 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 No evidence of active disease. Avoid treatment unless evidence of active disease manifests. (9) Vaginal bleeding Current Visit: Yes Status: Acute JUNIOR NETWORK ENGINEER team consulted. Pelvic ultrasound showed endometrial thickening. Management per the JUNIOR NETWORK ENGINEER team. - Subjective Interval history: Patient seen and examined. No acute events noted overnight. Patient more compliant with prescribed regimen. Accepting of assessments, medications, and interventions. She denies fevers or chills. Denies chest pain or shortness of breath or cough. Denies pain at this time. She does report a productive cough with white sputum per nursing. Denies nausea, vomiting, or abdominal pain. States she does not have much of an appetite and per nursing only ate one bite of breakfast. Denies oral thrush. Infect Dis PN-Objective Data - Labs CBC & Chem 7: 08/23/16 04:07 08/23/16 04:07 Labs: Laboratory Results - last 24 hr 08/22/16 08/22/16 08/22/16 04:38 06:07 11:03 WBC RBC Hgb Hct MCV MCH MCHC RDW Plt Count MPV Immature Gran % Seg Neutrophils % Lymphocytes % Monocytes % Eosinophils % Basophils % Neutrophils # Lymphocytes # Monocytes # Eosinophils # Basophils # Sodium Potassium Chloride Carbon Dioxide BUN Creatinine Est GFR ( Amer) Est GFR (Non-Af Amer) BUN/Creatinine Ratio Glucose POC Glucose 62 75 89 Calculated Osmolality Calcium 08/22/16 08/22/16 08/22/16 15:29 15:31 19:44 WBC RBC Hgb Hct MCV MCH MCHC RDW Plt Count MPV Immature Gran % Seg Neutrophils % Lymphocytes % Monocytes % Eosinophils % Basophils % Neutrophils # Lymphocytes # Monocytes # Eosinophils # Basophils # Sodium Potassium Chloride Carbon Dioxide BUN Creatinine Est GFR ( Amer) Est GFR (Non-Af Amer) BUN/Creatinine Ratio Glucose POC Glucose 65 73 68 Calculated Osmolality Calcium 08/22/16 08/23/16 08/23/16 23:54 04:07 04:07 WBC 7.9 RBC 3.07 L Hgb 8.5 L Hct 29.0 L MCV 94.5 MCH 27.7 L MCHC 29.3 L RDW 16.6 H Plt Count 189 MPV 9.9 Immature Gran % 0.9 Seg Neutrophils % 71.4 Lymphocytes % 16.8 Monocytes % 7.2 Eosinophils % 3.4 Basophils % 0.3 Neutrophils # 5.6 Lymphocytes # 1.3 Monocytes # 0.6 Eosinophils # 0.3 Basophils # 0.0 Sodium 142 Potassium 4.4 Chloride 107 Carbon Dioxide 26 BUN 17 Creatinine 3.73 H Est GFR ( Amer) 15 L Est GFR (Non-Af Amer) 12 L BUN/Creatinine Ratio 5 L Glucose 60 L POC Glucose 67 Calculated Osmolality 293 Calcium 10.2 Cultures: Cultures 08/21/16 11:10 Blood Culture - Preliminary Peripheral Venipuncture No growth. 08/21/16 11:10 Blood Culture - Preliminary Peripheral Venipuncture No growth. 08/19/16 15:00 Catheter Tip Culture - Final Intravenous or Arterial Cath No growth. 08/19/16 15:00 Catheter Tip Culture - Final Intravenous or Arterial Cath No growth. 08/21/16 12:10 Blood Culture - Preliminary Peripheral Venipuncture No growth. - Impressions Impressions Guidance Needle Placement Ultrasound 08/21/16 00:00 IMPRESSION: Successful ultrasound guided non-tunneled right jugular hemodialysis catheter placement. D/ / Ruthann Boss MD / Ruthann Boss MD Interpreting Provider: Ruthann Boss MD Insertion Non-Tunneled Catheter 08/21/16 00:00 IMPRESSION: Successful ultrasound guided non-tunneled right jugular hemodialysis catheter placement. D/ / Ruthann Boss MD / Ruthann Boss MD Interpreting Provider: Ruthann Boss MD Chest X-Ray 08/21/16 13:03 IMPRESSION: Right internal jugular central venous catheter tip projects over the cavoatrial junction. No pneumothorax. D/ / 08/21/2016 13:27:45 Licha Hayes MD / dillan Interpreting Provider: Licha Hayes MD Exam - Constitutional Vitals: Temp Pulse Resp BP Pulse Ox 98.0 F 89 20 113/94 95 08/23/16 12:00 08/23/16 12:00 08/23/16 12:00 08/23/16 12:00 08/23/16 12:00 General appearance: average body habitus, cooperative, no acute distress - Head Head exam: Present: atraumatic, normal inspection, normocephalic - Eye Eye exam: Present: EOMI, normal appearance, PERRL Pupils: Present: normal accommodation - ENT ENT exam: Present: mucous membranes moist - Neck Neck exam: Present: normal inspection Additional comments: Tracheostomy midline with O2 via the vent again this morning. Right neck TDC noted with transparent dressing C/D/I. - Respiratory Respiratory exam: Present: CTAB. Absent: rales, respiratory distress, rhonchi, wheezes - Cardiovascular Cardiovascular exam: Present: RRR, +S1, +S2 - GI/Abdominal GI/Abdominal exam: Present: normal bowel sounds, soft, tenderness (LUQ). Absent : distended Additional comments: Ileostomy noted to the RLQ with dark brown liquid stool in collection appliance. - Extremities Exam Extremities exam: Present: normal inspection. Absent: joint swelling, pedal edema, tenderness - Neurological Exam Neurological exam: Present: alert, oriented X3, no focal deficits, strengths equal and symetr throughout - Psychiatric Psychiatric exam: Present: normal affect, normal mood - Skin Skin exam: Present: dry, intact, normal color, warm - VTE Reasons for not Prescribing Prophylaxis: Not indicated-Anticoagulated or INR therapeutic Consult Discharge Plan - Plan Referrals: London Devi MD [Partnered Physician] - (mild endometrial thickening on pelvic US and vaginal bleeding. ) NO,PCP [Primary Care Provider] - Prescriptions: Aspirin Enteric Coated [Aspirin EC] 81 mg PO DAILY #30 tablet. Cefdinir [Omnicef] 300 mg PO BID #28 capsule MetroNIDAZOLE [Flagyl] 500 mg PO TID #42 tablet Sertraline [Zoloft] 100 mg PO DAILY #30 tablet
[2016-08-23] MEDS ORDERED: Heparin 1,000 UNITS/500 mL NS 500 ML ONE (13:08)
--- NOTE | 2016-08-23 13:33 | Physician Discharge Referral ---
ExtendedCare Referral Info Transfer To: [place] Provider in Charge: Dr. 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 Priority: Secondary Status: Chronic (6) Acute encephalopathy Priority: Secondary Status: Resolved (7) ESRD (end stage renal disease) on dialysis Priority: Secondary Status: Chronic (8) Chronic respiratory failure Priority: Secondary Status: Chronic (9) DVT prophylaxis Priority: Secondary Status: Acute (10) History of heart valve replacement with mechanical valve Priority: Secondary Status: Chronic (11) Vaginal bleeding, abnormal Priority: Secondary Status: Acute (12) Atrial fibrillation Priority: Secondary Status: Acute Prognosis: Fair Aware of Diagnosis: Patient, Family Aware of Prognosis: Patient, Family - Transfer Medications Prescriptions: Aspirin Enteric Coated [Aspirin EC] 81 mg PO DAILY #30 tablet. Cefdinir [Omnicef] 300 mg PO BID #28 capsule MetroNIDAZOLE [Flagyl] 500 mg PO TID #42 tablet Sertraline [Zoloft] 100 mg PO DAILY #30 tablet Home Medications: Alprazolam [Xanax 0.25 MG Tablet] 0.25 mg PO Q6H PRN 08/16/16 [History] Atorvastatin Calcium [Lipitor] 20 mg PO HS 08/16/16 [History] Calcitonin-[place], Synthetic [Miacalcin] 400 unit SQ Q12H 08/16/16 [History] Cyanocobalamin (Vitamin B-12) [Vitamin B-12] 100 mcg PO DAILY 08/16/16 [History] Famotidine [Heartburn Prevention] 20 mg PO Q12H 08/16/16 [History] Folic Acid 1 mg PO DAILY 08/16/16 [History] Ipratropium/Albuterol Neb [Duoneb] 3 ml IH Q4H PRN 08/16/16 [History] Ipratropium/Albuterol Neb [Duoneb] 3 ml IH Q6H 08/16/16 [History] Isosorbide DInitrate [Isosorbide Dinitrate] 5 mg PO Q12H 08/16/16 [History] Levothyroxine [Synthroid] 150 mcg PO QAM 08/16/16 [History] Magnesium Oxide [Mag-Ox] 400 mg PO Q12H 08/16/16 [History] Metoprolol [Lopressor] 25 mg PO DAILY 08/16/16 [History] Multivitamin [Multi-Day Vitamins] 1 each PO DAILY 08/16/16 [History] Ondansetron HCl [Zofran] 4 mg PO Q4H PRN 08/16/16 [History] Oxycodone HCl 10 mg PO Q3H PRN 08/16/16 [History] Terbinafine HCl [Lamisil] 1 appl TP BID 08/16/16 [History] Zolpidem [Ambien] 5 mg PO HS 08/16/16 [History] Aspirin Enteric Coated [Aspirin EC] 81 mg PO DAILY #30 tablet. 08/23/16 [Rx] Cefdinir [Omnicef] 300 mg PO BID #28 capsule 08/23/16 [Rx] MetroNIDAZOLE [Flagyl] 500 mg PO TID #42 tablet 08/23/16 [Rx] Sertraline [Zoloft] 100 mg PO DAILY #30 tablet 08/23/16 [Rx] Allergies/Adverse Reactions: Allergies codeine Allergy (Verified 08/16/16 19:07) Hives Hydromorphone Allergy (Verified 08/16/16 19:09) Hives Iodinated Contrast Media - Oral and Allergy (Verified 08/16/16 19:10) Hives Penicillins Allergy (Verified 08/16/16 19:09) Hives povidone-iodine Allergy (Verified 08/16/16 19:10) Hives - Respiratory Orders Oxygen / L per min (5L patient has trach collar) Smoking Cessation: Smoking cessation has been advised. For more information, call the [place] Tobacco Quit Line at 8-905-JSPB-NOW. - Lab Orders Lab Orders: Other (include drug levels w/frequency) (BMP on 08/27/15) - Ancillary Orders May use pressure relief devices daily prn, May consult with Dentist, Camera Prototyping Engineer, Emr Trainer PRN - Advance Directives Living Will: No (Patient needs advanced directive) Power of Client Experience Manager: Yes (Daugther and aunt) Code Status: Full Code - Mobility Orders Chair, Bedrest - Rehabiliation Orders Rehab Potential: Fair Rehab Orders: ROM Exercises, Evaluation for Physical Therapy, Evaluation for Occupational Therapy, Evaluation for Speech Therapy - Treatments Skin tear care topically daily PRN per policy (has stage one pressure ulcer on coccyx [id number]) - Diet Orders Renal (mechanically altered diet ground meat: with ensure for lunch and dinner) House Supplement per Dietary: ensure for lunch and dinner CERTIFICATION: I certify that the transfer of the above named patient to an Extended Care Facility is necessary for the continuing treatment of the diagnosis listed. The above information is true and accurate reflection of patient's current condition. Confidential - Redisclosure prohibited without a patient's written consent.
[2016-08-23] MEDS ORDERED: *HR* Midazolam HCl 2 MG/2 ML VIAL ONE (14:08)
[2016-08-23] MEDS ORDERED: *HR* FentaNYL (PF) 100 MCG/2 ML VIAL ONE (14:09)
[2016-08-23] MEDS ORDERED: *HR* Heparin 5,000 UNIT/ML VIAL ONE (14:15)
--- NOTE | 2016-08-23 14:18 | IR Procedure Note ---
Date of procedure: 08/23/16 Consent Obtained: Verbal consent Timeout: Correct patient and procedure verified, Correct site verified, Time out performed, Skin prep completed Local anesthetic: Lidocaine 1% Indications: Renal failure Procedure Performed: Tunneled HD catheter insertion Site/Technique: Right IJ tunneled HD catheter placed in VIR Results/Findings: Distal tip of catheter in RA Estimated blood loss (cc): 2 Complications: None; Tolerated procedure well Post Procedure Treatment Plan: May use HD catheter now
[2016-08-23 19:37] VITALS: BP 118/66
== END 2016-08-23 19:54 | DRG 870 ==
LOC: ICNU 17:57 → EMEROO 17:57 → ICNU 22:44
PROVIDERS: ADMIT Internal Medicine; ATTEND Internal Medicine
PROC: IRPERMA (2016-08-21 12:00)